=== PATIENT | female | born 1955 | race Caucasian/White ===

== ENCOUNTER 2019-02-24 11:03 | Inpatient (IN) | payer MEDICARE, MEDICAID ==
[~2019-02-24] VITALS: Ht 157.5 cm; Wt 64.7 kg
[2019-02-24] MEDS ORDERED: ONDANSETRON 4MG/2ML VIAL (J2405) As Ordered ONE (11:31)
[2019-02-24 11:41] LABS: BASO # 0.1 10^3/uL (0.0-0.2); BASO % 0.6 % (0.0-1.0); HEMATOCRIT 42.1 % (36.0-47.0); HEMOGLOBIN 14.3 g/dl (12.0-15.5); LYMPH # 1.8 10^3/uL (1.5-4.5); MEAN CORPUSCULAR HEMOGLOBIN 30.8 pg (27.0-33.0); MEAN CORPUSCULAR VOLUME 90.5 fl (80.0-96.0); MONO # 1.1 10^3/uL (0.0-0.8); NEUTROPHILS # 13.2 10^3/uL (1.8-7.7); NEUTROPHILS % 80.7 % (36.0-66.0); PLATELET COUNT, AUTOMATED 291 10^3/uL (150-450); RED BLOOD COUNT 4.65 10^6/uL (4.00-5.40); WHITE BLOOD COUNT 16.4 10^3/uL (4.0-10.0)
[2019-02-24] MEDS ORDERED: ONDANSETRON 4MG/2ML VIAL (J2405) IV ONE (11:45)
[2019-02-24] MEDS ORDERED: MORPHINE 4 MG/ML 1ML VIAL/SYRINGE (J2270) IV ONE (11:45)
[2019-02-24] MEDS ORDERED: NS 1,000 ML IV ONE (11:45)
[2019-02-24] MEDS ORDERED: ISOVUE-370 76% 100ML VIAL (Q9967) As Ordered ONE (12:03)
[2019-02-24 12:14] LABS: ALBUMIN 2.5 GM/DL (3.2-5.2); BILIRUBIN,DIRECT 0.2 MG/DL (0.0-0.2); BILIRUBIN,TOTAL 0.5 MG/DL (0.2-1.0); TOTAL PROTEIN 7.3 GM/DL (6.4-8.2)
[2019-02-24] MEDS ORDERED: ADVI100T PO (12:32)
[2019-02-24] MEDS ORDERED: ST J300C2 PO (12:32)
[2019-02-24] MEDS ORDERED: PIPERACILLIN/TAZOBACTAM SOD 3.375 GM in D5W MINI-BAG PLUS 50 ML IV ONE (13:15)
[2019-02-24] MEDS ORDERED: IBUP200T45 PO (13:32)
[2019-02-24] MEDS ORDERED: ALKATAB12 PO (13:32)
--- NOTE | 2019-02-24 15:18 | REP ---
CT of the abdomen pelvis with IV contrast : There are no comparison studies. There are multiple diverticula in the descending colon and sigmoid colon. There are two large pericolonic fluid collections at the sigmoid colon, one anteriorly containing fluid and gas bubbles measuring up to 5.6 cm and the other posteriorly inferior to the sigmoid measuring 4.6 cm. These are compatible with pericolonic abscesses. Additionally, there is extensive bilateral pneumo-retroperitoneum. The visualized lung maria are unremarkable. No pleural effusions. The hepatic parenchyma is heterogeneous. The hepatic margin has a nodular appearance. These findings suggest hepatocellular disease such as cirrhosis. There are no hepatic masses. No varices are identified. The gallbladder, pancreas and spleen are unremarkable except that the pancreas is outlined by pneumoretroperitoneum. The adrenals are unremarkable. The kidneys are unremarkable except for bilateral parapelvic cysts. The abdominal aorta is unremarkable. There is no bowel distension or obstruction. Pelvis: There are pericolonic abscesses adjacent to the sigmoid colon as described. There is no ascites. No pneumoperitoneum. The bladder, uterus and adnexa are unremarkable. Impression: Severe diverticulitis with two large pericolonic abscesses adjacent to the sigmoid colon as described. There is marked pneumoretroperitoneum. There are findings compatible with hepatic cirrhosis. No hepatic masses. Bilateral renal parapelvic cysts. Electronically Signed by Cali Goyal MD 02/24/2019 03:08 P
[2019-02-24 15:30] VITALS: BP 166/108
[2019-02-24] MEDS ORDERED: ONDANSETRON 4MG/2ML VIAL (J2405) IV PRN (15:30)
[2019-02-24] MEDS: MORPHINE 4 MG/ML 1ML VIAL/SYRINGE (J2270) IV PRN ×3 (15:44→20:40)
[2019-02-24] MEDS: NS 1,000 ML IV SCH (15:45)
[2019-02-24 16:15] LABS: BLOOD UREA NITROGEN 9 MG/DL (7-18); CALCIUM LEVEL 8.6 MG/DL (8.8-10.2); CARBON DIOXIDE LEVEL 24 MEQ/L (21-32); CHLORIDE LEVEL 103 MEQ/L (98-107); CREATININE FOR GFR 0.76 MG/DL (0.55-1.30); GLOMERULAR FILTRATION RATE > 60.0 (>45); GLUCOSE, FASTING 121 MG/DL (70-100); POTASSIUM SERUM 3.7 MEQ/L (3.5-5.1); SODIUM LEVEL 137 MEQ/L (136-145)
[2019-02-24] MEDS: ACETAMINOPHEN 325 MG TAB PO PRN ×2 (16:29→20:53)
--- NOTE | 2019-02-24 17:09 | HPEPDOC ---
General Date of Admission 02/24/19 @1347 Date of Service: Feb 24, 2019 (PCP: ASHLYN Hargrove) Attending Physician: MINA MOHR DO Chief Complaint The patient is a 63-year-old female admitted with a reason for visit of Abdominal Pain. Source: Patient, Family Exam Limitations: No limitations Timing/Duration: Getting worse Severity: Moderate Associated Symptoms: Fever, Chills, Loss of appetite, Malaise, Nausea, Vomiting, Other (weight loss 25-30# in 6 months) History of Present Illness 63 yo female with lower abdomen pain, N,V and diarrhea worse over past 1 week. Pateint states since september 2018, she has lost 25-30# because of nausea, unable to tolerate smell or taste of food. She states in November, she had first episode of diverticulitis and treated with 14 days of 2 antibiotics (presumed flagyl,levaquin). States abdomen pain never subsided and was intermittent on/off since then. Did not get colonoscopy. She states 02/16/19 pain worsened in intensity and severity and became sharp constant and associated with N,V,D. she has had fever and chills x4 days. patient and daughters (2) states worried and afraid that she will end up similar to her father who from complications of colon resection with colostomy and undiagnosed gallbladder infection. Home medications: st rae wort, ibuprofen Patient states she drinks 2-3 vodka/water daily and last EtOH use 02/22/19. States no history of DTs in past and has gone 1 month without drinking and no withdraw history Home Medications Scheduled PRN Aspirin/Sod Bicarb/Citric Acid (Angel[place] Es Tab Eff) 1 Each Tablet.eff, 1 EACH PO for HEARTBURN/INDIGESTION, (Reported) Ibuprofen (Ibu-200) 200 Mg Tablet, 200 MG PO Q6H PRN for PAIN, (Reported) Allergies Coded Allergies: No Known Allergies (Unverified , 02/24/19) Past Medical History Medical History none - patient states "healthy"; denies diabetes,HTN,thyroid or heart disease Family History Significant Family History: Noncontributory mother old age (97 yo); father complications of colostomy and undiagnosed ruptured gallbladder age 94 Social History * Smoker: non-smoker Alcohol: other (pateint drinks 2-3 vodka and water nightly) A-FIB/CHADSVASC A-FIB History Current/History of A-Fib/PAF?: No Review of Systems Constitutional: Reports: Chills, Fever, Malaise, Fatigue, Weight Loss Gastrointestinal: Reports: Nausea, Vomiting, Abdominal Pain, Diarrhea Other systems 10 comprehensive systems reviewed and negative except as above or in the HPI Physical Examination General Exam: Positive: Alert, Cooperative, Mild Distress Eye Exam: Positive: PERRLA, Conjunctiva & lids normal, EOMI ENT Exam: Positive: Atraumatic, Mucous membr. moist/pink, Pharynx Normal, Tong ue Midline, Other ENT (upper dentures; lower teeth intact) Neck Exam: Positive: Supple, +2 carotid pulse wo bruit Chest Exam: Positive: Clear to auscultation, Normal air movement; Negative: Rales, Rhonchi, Wheezing Heart Exam: Positive: Rate Normal, Regular Rhythm, Other (no rub, no murmur) Abdomen Exam: Positive: BS Hyperactive, Soft, Tenderness (diffuse but more localized in RUQ and LLQ), Mass (stool vs mass in LLQ), Other (guarding, mild rebound but no rigidity) Extremity Exam: Positive: Normal pulses; Negative: Clubbing, Cyanosis, Edema Skin Exam: Positive: Nl turgor and temperature Neuro Exam: Positive: Normal Speech, Strength at 5/5 X4 ext, Normal Tone, Sensation Intact, Cranial Nerves 3-12 NL Psych Exam: Positive: Mental status NL, Mood NL, Oriented x [address] SCAN ABDOMEN: There are two large pericolonic fluid collections at the sigmoid colon, one anteriorly containing fluid and gas bubbles measuring up to 5.6 cm and the other posteriorly inferior to the sigmoid measuring 4.6 cm. These are compatible with pericolonic abscesses. Additionally, there is extensive bilateral pneumo-retroperitoneum. The hepatic parenchyma is heterogeneous. The hepatic margin has a nodular appearance. These findings suggest hepatocellular disease such as cirrhosis. There are no hepatic masses. No varices are identified. The gallbladder, pancreas and spleen are unremarkable except that the pancreas is outlined by pneumoretroperitoneum. Impression: Severe diverticulitis with two large pericolonic abscesses adjacent to the sigmoid colon as described. There is marked pneumoretroperitoneum. There are findings compatible with hepatic cirrhosis. No hepatic masses. Bilateral renal parapelvic cysts. Vital Signs Vital Signs Date Time Temp Pulse Resp B/P (MAP) Pulse Ox O2 Delivery O2 Flow Rate FiO2 02/24/19 12:20 18 02/24/19 12:08 90 139/69 (92) 02/24/19 11:47 98.6 98 Room Air Laboratory Data Labs 24H Laboratory Tests 2 02/24/19 11:29: Immature Granulocyte % (Auto) 0.7, White Blood Count 16.4H, Red Blood Count 4.65, Hemoglobin 14.3, Hematocrit 42.1, Mean Corpuscular Volume 90.5, Mean Corpuscular Hemoglobin 30.8, Mean Corpuscular Hemoglobin Concent 34.0, Red Cell Distribution Width 13.0, Platelet Count 291, Neutrophils (%) (Auto) 80.7H, Lymphocytes (%) (Auto) 11.0L, Monocytes (%) (Auto) 7.0H, Eosinophils (%) (Auto) 0.0, Basophils (%) (Auto) 0.6, Neutrophils # (Auto) 13.2H, Lymphocytes # (Auto) 1.8, Monocytes # (Auto) 1.1H, Eosinophils # (Auto) 0.0, Basophils # (Auto) 0.1, Nucleated Red Blood Cells % (auto) 0.0, Aspartate Amino Transf (AST/SGOT) 17, Alanine Aminotransferase (ALT/SGPT) 11L, Alkaline Phosphatase 69, Total Bilirubin 0.5, Direct Bilirubin 0.2, Total Protein 7.3, Albumin 2.5L, Albumin/Globulin Ratio 0.52L, Amylase Level 16L, Lipase 42L 02/24/19 11:32: POC Glucose (Misc Panel) 136H, POC Sodium (Misc Panel) 138, POC Potassium (Misc Panel) 3.0L, POC Chloride (Misc Panel) 100, POC Total CO2 (Misc Panel) 20.0L, POC Blood Urea Nitrogen (Misc Panel 8, POC Ionized Calcium (Misc Panel) 4.3L, POC Creatinine (Misc Panel) 0.6, POC Hematocrit (Misc Panel) 41.0 CBC/BMP Laboratory Tests 02/24/19 11:29 Red Blood Count 4.65, Mean Corpuscular Volume 90.5, Mean Corpuscular Hemoglobin 30.8, Mean Corpuscular Hemoglobin Concent 34.0, Red Cell Distribution Width 13.0, Neutrophils (%) (Auto) 80.7 H, Lymphocytes (%) (Auto) 11.0 L, Monocytes (%) (Auto) 7.0 H, Eosinophils (%) (Auto) 0.0, Basophils (%) (Auto) 0.6, Neutrophils # (Auto) 13.2 H, Lymphocytes # (Auto) 1.8, Monocytes # (Auto) 1.1 H, Eosinophils # (Auto) 0.0, Basophils # (Auto) 0.1 Assessment/Plan 1) abdomen pain due to acute on chronic severe diverticulitis with 2 pericolonic abscess Surgery consulted thru ED (dr Hernandez) who recommended IR drain and will see patient blood cultures ordered zosyn IV, IVF, NPO except meds, morphine for pain control 2) extensive bilateral pneumo-retroperitoneum. seen on CT scan and associated with abscess. Check CXR, KUB 3) Probable hepatocellular disease (or cirrhosis) - normal liver function test - check US gallbladder and hepatitis (ABC) profile; family is requesting HIDA scan but will wait at this time until other medical issues improved. 4) History of EtOH use without dependence - watch for s/s of withdraw, although patient states she has gone long periods of time without EtOH use and no problems in past. CODE STATUS: FULL DVT prophylaxis: lovenox/SCD 5) weight loss- unintentional Plan / VTE VTE Prophylaxis Ordered?: Yes MINA MOHR DO Feb 24, 2019 13:47
--- NOTE | 2019-02-24 17:24 | REP ---
Acute abdominal series four views including PA and lateral chest and supine upright abdomen: PA and lateral chest: Comparison is the abdomen/pelvis CT earlier today. The lung maria are clear. Cardiac size is normal. The marisa and mediastinum are unremarkable. There is an age indeterminate fracture of the posterior arch of the right seventh rib. There is an unusual crescentic collection of air over the mid upper abdomen , likely the pneumoretroperitoneum identified on the abdomen and pelvis CT earlier today. There is no free subdiaphragmatic air. Impression: Unusual crescentic air collection over the midline of the upper abdomen, likely the pneumoretroperitoneum identified by CT earlier today. There is no free subdiaphragmatic air. Age indeterminate fracture of the right seventh rib. Abdomen, supine upright views: There are mildly dilated bowel loops in the abdomen on the right one of which contains an air-fluid level on the upright view. The bowel gas pattern is nonspecific. There are no calcifications. The bladder is opacified as a consequence of the IV contrast for the previous CT. There are unusual air collections in the mid and upper abdomen corresponding to the pneumoretroperitoneum on the comparison CT. Impression: Nonspecific bowel gas pattern. There are findings compatible with the pneumoretroperitoneum identified on the comparison CT Electronically Signed by Cali Goyal MD 02/24/2019 05:15 P
--- NOTE | 2019-02-24 17:25 | REP ---
Chest single lateral view: Please refer to the the acute abdominal series performed this same date for these results. Electronically Signed by Cali Goyal MD 02/24/2019 05:16 P
[2019-02-24 17:30] VITALS: BP 140/66
[2019-02-24 20:00] VITALS: BP 122/60
[2019-02-24] MEDS: PIPERACILLIN/TAZOBACTAM SOD 3.375 GM in D5W MINI-BAG PLUS 50 ML IV SCH (20:40)
[2019-02-25] VITALS (7 sets, daily range): BP systolic 111–131; BP diastolic 60–77
[2019-02-25] MEDS: MORPHINE 4 MG/ML 1ML VIAL/SYRINGE (J2270) IV PRN ×7 (01:08→22:07)
[2019-02-25] MEDS: NS 1,000 ML IV SCH ×2 (01:08→14:53)
[2019-02-25] MEDS: PIPERACILLIN/TAZOBACTAM SOD 3.375 GM in D5W MINI-BAG PLUS 50 ML IV SCH ×4 (02:52→20:35)
[2019-02-25 07:16] LABS: HEMOGLOBIN 12.8 g/dl (12.0-15.5); MEAN CORPUSCULAR HEMOGLOBIN 29.8 pg (27.0-33.0); MEAN CORPUSCULAR HGB CONC 32.8 g/dl (32.0-36.5); MEAN CORPUSCULAR VOLUME 90.9 fl (80.0-96.0); PLATELET COUNT, AUTOMATED 248 10^3/uL (150-450); RED BLOOD COUNT 4.29 10^6/uL (4.00-5.40); WHITE BLOOD COUNT 11.8 10^3/uL (4.0-10.0)
[2019-02-25 07:25] LABS: INR 1.35; PROTHROMBIN TIME 16.4 SECONDS (11.8-14.0)
[2019-02-25 07:43] LABS: ALT/SGPT 10 U/L (12-78); BILIRUBIN,TOTAL 0.5 MG/DL (0.2-1.0); BLOOD UREA NITROGEN 11 MG/DL (7-18); CALCIUM LEVEL 8.3 MG/DL (8.8-10.2); CARBON DIOXIDE LEVEL 25 MEQ/L (21-32); CHLORIDE LEVEL 108 MEQ/L (98-107); CREATININE FOR GFR 0.81 MG/DL (0.55-1.30); GLOMERULAR FILTRATION RATE > 60.0 (>45); GLUCOSE, FASTING 88 MG/DL (70-100); POTASSIUM SERUM 3.5 MEQ/L (3.5-5.1); SODIUM LEVEL 141 MEQ/L (136-145); TOTAL PROTEIN 6.8 GM/DL (6.4-8.2)
[2019-02-25] MEDS: ACETAMINOPHEN 325 MG TAB PO PRN ×2 (07:52→22:17)
--- NOTE | 2019-02-25 10:08 | REP ---
Clinical: Abdominal pain. Lower abdominal abscess related to diverticulitis. Technique: Real time naidu scale ultrasound examination using curved array transducer. Comparison: CT dated 02/24/2019. Findings: Liver and pancreas are normal in contour, size, echogenicity without focal hepatic or pancreatic lesion identified. The gallbladder is normal without gallstones, wall thickening, or pericholecystic fluid. No biliary ductal dilatation is appreciated and the common bile duct measures 2.4 mm diameter. Right kidney is normal in reniform shape without hydronephrosis and measures 11.5 x 5.7 x 5.8 cm. Limited evaluation of the lower abdomen/pelvis demonstrates a complex collection measuring approximately 9.5 x 7.8 x 4.5 cm consistent with known abscess related to diverticulitis and similar to CT findings. Impression: 1. Normal right upper quadrant ultrasound. 2. Complex fluid/abscess in the lower abdomen consistent with CT findings related to diverticulitis. Electronically Signed by Oleg Gee MD 02/25/2019 10:00 A
[2019-02-25] MEDS ORDERED: LIDOCAINE 1% MDV 20ML VIAL As Ordered ONE (10:39)
[2019-02-25 11:41] LABS: HEPATITIS A ANTIBODY IGM NEGATIVE (NEGATIVE); HEPATITIS B CORE ANTIBODY IGM NEGATIVE (NEGATIVE); HEPATITIS B SURFACE ANTIGEN NEGATIVE (NEGATIVE); HEPATITIS C VIRUS ABY INDEX 0.2 INDEX (<0.8)
--- NOTE | 2019-02-25 11:55 | IPNPDOC ---
Text Note Date of Service The patient was seen on 02/25/19. NOTE S: patient admitted with diverticulitis with abscess but no rectal bleeding. She states abdomen pain present and is hungry. pain intermittently controlled with morphine. no N no V today. daughter present. O: VS as below General: pleasant, NAD AAOx3 HRRR LCTA no W/R/R Abdomen soft diffusely tender, decreased but present bowel sounds, no palpable mass; pain worse in R/L lower quadrants, negative menezes. no rebound, no rigidity Ext no edema A/P: 1) abdomen pain due to acute on chronic severe diverticulitis with 2 pericolonic abscess Surgery consulted (dr Hernandez) thru the ED who will follow blood cultures ordered zosyn IV, IVF, NPO except meds, morphine for pain control Patient to have IR needle drain of abscess today 2) extensive bilateral pneumo-retroperitoneum. seen on CT scan and associated with abscess. 3) Probable hepatocellular disease (or cirrhosis) - normal liver function test - check US gallbladder and hepatitis (ABC) profile; family is requesting HIDA scan but will wait at this time until other medical issues improved. 4) History of EtOH use without dependence - watch for s/s of withdraw, although patient states she has gone long periods of time without EtOH use and no problems in past. VS,Fishbone, I+O VS, Fishbone, I+O Laboratory Tests 02/24/19 15:40 Calcium Level 8.6 L 02/25/19 06:56 Calcium Level 8.3 L, Red Blood Count 4.29, Mean Corpuscular Volume 90.9, Mean Corpuscular Hemoglobin 29.8, Mean Corpuscular Hemoglobin Concent 32.8, Red Cell Distribution Width 13.3, Aspartate Amino Transf (AST/SGOT) 11, Alanine Aminotransferase (ALT/SGPT) 10 L, Alkaline Phosphatase 70, Total Bilirubin 0.5, Total Protein 6.8, Albumin 2.0 L Vital Signs Date Time Temp Pulse Resp B/P (MAP) Pulse Ox O2 Delivery O2 Flow Rate FiO2 02/25/19 10:22 18 02/25/19 07:52 100.5 106 131/74 (93) 96 02/24/19 14:51 Room Air I&O- Last 24 Hours up to 6 AM 02/25/19 06:00 Intake Total 2360 ml Output Total 210 ml Balance 2150 ml MINA MOHR DO Feb 25, 2019 11:55
--- NOTE | 2019-02-25 16:04 | CR ---
DATE OF CONSULTATION: 02/24/2019 REASON FOR CONSULTATION: Perforated diverticulitis. HISTORY OF PRESENT ILLNESS: The patient is a 63-year-old female who presents with nausea, vomiting and diarrhea for the past week. She has also had some increase in abdominal pain. She came into the emergency room, had an elevated white count, as well as a CT scan that shows complicated diverticulitis with free air in the abdomen, as well as some pericolonic abscess. This morning her white count is improved. She says her abdominal pain feels better. She has no nausea, vomiting. No fevers overnight just in the emergency room. She has had one other episode of diverticulitis last November. She was treated with antibiotics for that and did not require hospitalization. She feels like she has never improved since then that she has had persistent abdominal pains on and off and has resulted in 25 30-pound weight loss, but she has not had any other therapy for it. She has never had a colonoscopy. There is a strong family history of colon cancer and complications from colon surgeries so she has been avoiding the whole issue altogether. PAST MEDICAL HISTORY: Negative. PAST SURGICAL HISTORY: Negative. ALLERGIES: None. HOME MEDICATIONS: - aspirin - ibuprofen FAMILY HISTORY: Noncontributory. SOCIAL HISTORY: Claims to drink two to three alcoholic beverages a day. Family claims likely more. Denies tobacco or drug abuse. REVIEW OF SYSTEMS: Pertinent positives and negatives as stated in the history of present illness. PHYSICAL EXAMINATION: General: Patient is awake and alert. Vitals: Temperature 100.5, pulse 106, respirations 20, blood pressure 131/74, pulse ox 96% on room air. HEENT: Pupils equal round react to light accommodation. HEART: S1, S2. Regular rate and rhythm. LUNGS: Clear to auscultation bilaterally. Abdomen: Soft, diffuse mild tenderness. No rebounding or guarding. Extremities: No clubbing, cyanosis or edema. LABORATORY DATA: White count 11.8, down from 16 on admission, hemoglobin 12.8, platelets 248, sodium 141, potassium 3.5, creatinine 0.81. IMAGING STUDIES: CT abdomen and pelvis shows severe diverticulitis with two large pericolonic abscesses adjacent to the sigmoid colon, pneumoretroperitoneum finding is also compatible with hepatic cirrhosis. No hepatic masses. Bilateral renal parapelvic cysts. ASSESSMENT/PLAN: The patient 63-year-old female with alcoholism, likely alcoholic cirrhosis, as well as complicated diverticulitis. Currently, she has a non peritoneal abdomen. She has borderline fevers and her white count is improving; however, she is still at high risk for requiring an emergent surgery during this hospitalization. At this point, I have spoken with radiology, they are going to attempt placement of a drain next to one of the pericolonic abscesses in the sigmoid colon. They will be placing that this afternoon. As long as she tolerates that well and continues to improve with the IV antibiotics, then we may be able to avoid urgent surgery with colostomy during this stay. However, on discharge, would highly recommend that she sees me for colonoscopy and likely attempt to talk her into a colon resection in about 1-1/2 months once this all resolves. She is not very comfortable discussing any of that at this point, but we will readdress it again tomorrow.
--- NOTE | 2019-02-25 16:51 | REP ---
CT-guided abdominal abscess drain The procedure was performed under the direct supervision of Dr. Padron. The patient has a history of to large pericolonic fluid collections at the sigmoid colon one anteriorly containing fluid and gas bubbles measuring 5.6 cm and the other posteriorly and inferiorly to the sigmoid measuring 4.6 cm. The more posterior and inferior collection is amenable for drainage. The risks and benefits of the procedure were explained to the patient and informed consent was obtained. The abdominal abscess was localized using CT guidance. The skin was prepped and draped in a sterile fashion. 1% lidocaine was used as a local anesthetic. Using CT guidance and Seldinger technique a 810 [place] Skater APDL catheter was inserted. 30 ml of base colored fluid was withdrawn and sent to lab for analysis. The abscess cavity was flushed with four 10 ml aliquots of sterile saline. The catheter was affixed to the skin and a sterile dressing was applied. The catheter was connected to a gravity drainage bag. The patient tolerated the procedure well and there were no immediate complications. Reviewed by KEVIN Anderson 02/25/2019 04:29 P Electronically Signed by Van Padron MD 02/25/2019 04:42 P
[2019-02-26] VITALS: BP 140/69
[2019-02-26] MEDS: PIPERACILLIN/TAZOBACTAM SOD 3.375 GM in D5W MINI-BAG PLUS 50 ML IV SCH ×4 (02:25→19:49)
[2019-02-26] MEDS: MORPHINE 4 MG/ML 1ML VIAL/SYRINGE (J2270) IV PRN ×6 (02:36→21:46)
[2019-02-26] MEDS: ACETAMINOPHEN 325 MG TAB PO PRN ×4 (02:37→20:03)
[2019-02-26] MEDS: NS 1,000 ML IV SCH ×2 (03:00→07:30)
[2019-02-26 04:00] VITALS: BP 132/84
[2019-02-26 06:56] LABS: HEMATOCRIT 41.4 % (36.0-47.0); HEMOGLOBIN 13.9 g/dl (12.0-15.5); MEAN CORPUSCULAR HEMOGLOBIN 31.4 pg (27.0-33.0); MEAN CORPUSCULAR HGB CONC 33.6 g/dl (32.0-36.5); MEAN CORPUSCULAR VOLUME 93.5 fl (80.0-96.0); PLATELET COUNT, AUTOMATED 281 10^3/uL (150-450); RED BLOOD COUNT 4.43 10^6/uL (4.00-5.40); WHITE BLOOD COUNT 13.3 10^3/uL (4.0-10.0)
[2019-02-26 07:27] LABS: LYMPHOCYTES 10 % (16-52); MONOCYTES 2 % (0-8); NEUTROPHILS 88 % (35-75)
[2019-02-26 07:28] LABS: PLATELET ESTIMATE NORMAL (NORMAL)
[2019-02-26 07:42] LABS: ALBUMIN 1.9 GM/DL (3.2-5.2); ALT/SGPT 16 U/L (12-78); BILIRUBIN,TOTAL 0.4 MG/DL (0.2-1.0); BLOOD UREA NITROGEN 18 MG/DL (7-18); CALCIUM LEVEL 8.7 MG/DL (8.8-10.2); CARBON DIOXIDE LEVEL 24 MEQ/L (21-32); CHLORIDE LEVEL 109 MEQ/L (98-107); CREATININE FOR GFR 0.72 MG/DL (0.55-1.30); GLOMERULAR FILTRATION RATE > 60.0 (>45); GLUCOSE, FASTING 95 MG/DL (70-100); POTASSIUM SERUM 3.7 MEQ/L (3.5-5.1); SODIUM LEVEL 142 MEQ/L (136-145); TOTAL PROTEIN 6.2 GM/DL (6.4-8.2)
[2019-02-26 08:00] VITALS: BP 118/72
--- NOTE | 2019-02-26 08:48 | IPNPDOC ---
Text Note Date of Service The patient was seen on 02/26/19. NOTE No acute events overnight. She has not had a fever since noon yesterday. The abd pain is improving, but she still has pains on the left side. No nausea or emesis. VSSAF Drain - 50 purulent NAD abd - soft, distended, tender to palpation diffuse, no rebound or guarding labs - below A) 63y/o female with complicated diverticulitis with free air and an abscess s/p IR drainage no prior colonoscopy P) clears IVF abx monitor output she will need a colonoscopy as an outpatient in about 6 weeks. After that we will discuss possible elective colon resection. Steve Hernandez DO VS,Jony, I+O VS, Jony, I+O Laboratory Tests 02/26/19 06:34 Red Blood Count 4.43, Mean Corpuscular Volume 93.5, Mean Corpuscular Hemoglobin 31.4, Mean Corpuscular Hemoglobin Concent 33.6, Red Cell Distribution Width 13.5, Calcium Level 8.7 L, Aspartate Amino Transf (AST/SGOT) 25, Alanine Aminotransferase (ALT/SGPT) 16, Alkaline Phosphatase 84, Total Bilirubin 0.4, Total Protein 6.2 L, Albumin 1.9 L Vital Signs Date Time Temp Pulse Resp B/P (MAP) Pulse Ox O2 Delivery O2 Flow Rate FiO2 02/26/19 07:28 18 02/26/19 04:00 98.2 104 132/84 (100) 94 02/24/19 14:51 Room Air I&O- Last 24 Hours up to 6 AM 02/26/19 06:00 Intake Total 1200 ml Output Total 620 ml Balance 580 ml MARCOS HERNANDEZ DO Feb 26, 2019 08:48
--- NOTE | 2019-02-26 11:49 | IPNPDOC ---
Date Seen The patient was seen on 02/26/19. Progress Note Subjective: pt c/o 5/10 pain in the left lower quadrant s/p drainage catheter placement 02/25/19 for diverticulitis with 2 large sigmoid abscesses. denies any fever, chills, nausea, vomiting. tolerating oral diet, but "jello is too sweet.I didn't eat much." c/o abdominal distension, no bowel movement. ambulated around the floor yesterday. Surgeon discussed colonoscopy in 4-5 weeks after acute e pisode subsides. Objective: physical examination: Vital signs: pls see below General: pleasant, NAD AAOx3 anicteric no jaundice. HEENT: moist mucus membranes Heart: S1S2 RRR Lungs: CTA no W/R/R Abdomen :soft distended LLQ tender some bloody discharge and minimal purulence in drain. EXT: no edema laboratory data,imaging studies, microbiology: pls see below CT abd/pelvis: Severe diverticulitis with two large pericolonic abscesses adjacent to the sigmoid colon as described. There is marked pneumoretroperitoneum. There are findings compatible with hepatic cirrhosis. No hepatic masses. Bilateral renal parapelvic cysts. A/P:63 yo female with lower abdomen pain, N,V and diarrhea worse over past 1 week. Pateint states since september 2018, she has lost 25-30# because of nausea, unable to tolerate smell or taste of food. She states in November, she had first episode of diverticulitis and treated with 14 days of 2 antibiotics (presumed flagyl,levaquin). States abdomen pain never subsided and was intermittent on/off since then. Did not get colonoscopy. She states 02/16/19 pain worsened in intensity and severity and became sharp constant and associated with N,V,D. she has had fever and chills x4 days. patient and daughters (2) states worried and afraid that she will end up similar to her father who from complications of colon resection with colostomy and undiagnosed gallbladder infection. 1) severe diverticulitis with 2 pericolonic sigmoid abscess Surgery consulted (dr Hernandez) thru the ED who will follow blood cultures ordered zosyn IV, IVF, tolerating po diet except meds, morphine for pain control s/p IR Ct guided drainage placement 02/25/19 2) extensive bilateral pneumo-retroperitoneum. seen on CT scan and associated with abscess. 3) Probable hepatocellular disease (or cirrhosis) - normal liver function test - reviewedUS gallbladder and hepatitis (ABC) profile; 4) History of EtOH use without dependence - watch for s/s of withdraw, although patient states she has gone long periods of time without EtOH use and no problems in past. VS, I&O, 24H, Fishbone Vital Signs/I&O Vital Signs Date Time Temp Pulse Resp B/P (MAP) Pulse Ox O2 Delivery O2 Flow Rate FiO2 02/26/19 11:34 20 02/26/19 08:00 98.4 114 118/72 (87) 95 02/24/19 14:51 Room Air I&O- Last 24 Hours up to 6 AM 02/26/19 06:00 Intake Total 1200 ml Output Total 620 ml Balance 580 ml Laboratory Data 24H LABS Laboratory Tests 2 02/26/19 06:34: Nucleated Red Blood Cells % (auto) 0.0, Neutrophils 88H, Lymphocytes (Manual) 10L, Monocytes (Manual) 2, Platelet Estimate NORMAL, Red Blood Cell Morphology NORMAL, Anion Gap 9, Glomerular Filtration Rate > 60.0, Blood Urea Nitrogen 18#, Creatinine 0.72, Sodium Level 142, Potassium Level 3.7, Chloride Level 109H, Carbon Dioxide Level 24, Calcium Level 8.7L, Aspartate Amino Transf (AST/SGOT) 25, Alanine Aminotransferase (ALT/SGPT) 16, Alkaline Phosphatase 84, Total Bilirubin 0.4, Total Protein 6.2L, Albumin 1.9L, Albumin/Globulin Ratio 0.44L CBC/BMP Laboratory Tests 02/26/19 06:34 Red Blood Count 4.43, Mean Corpuscular Volume 93.5, Mean Corpuscular Hemoglobin 31.4, Mean Corpuscular Hemoglobin Concent 33.6, Red Cell Distribution Width 1 3.5, Calcium Level 8.7 L, Aspartate Amino Transf (AST/SGOT) 25, Alanine Aminotransferase (ALT/SGPT) 16, Alkaline Phosphatase 84, Total Bilirubin 0.4, Total Protein 6.2 L, Albumin 1.9 L Microbiology Microbiology 02/24/19 Blood Culture - Preliminary, Resulted No growth after 24 hours . All specim... 02/25/19 Anaerobic Culture, Received Pending 02/25/19 Gram Stain - Final, Resulted 02/25/19 Abscess Culture, Resulted Pending NANCY BARBA MD Feb 26, 2019 11:45
[2019-02-26 12:00] VITALS: BP 128/92
[2019-02-26 16:00] VITALS: BP 126/86
[2019-02-26 19:58] VITALS: BP 124/64
[2019-02-27] VITALS (7 sets, daily range): BP systolic 130–178; BP diastolic 75–98
[2019-02-27] MEDS: MORPHINE 4 MG/ML 1ML VIAL/SYRINGE (J2270) IV PRN ×4 (01:07→11:11)
[2019-02-27] MEDS: PIPERACILLIN/TAZOBACTAM SOD 3.375 GM in D5W MINI-BAG PLUS 50 ML IV SCH ×4 (01:07→21:08)
[2019-02-27] MEDS: ACETAMINOPHEN 325 MG TAB PO PRN (05:29)
--- NOTE | 2019-02-27 07:56 | IPNPDOC ---
Date Seen The patient was seen on 02/27/19. Progress Note Subjective: pt remains frustrated about still being in the hospital with slow recovery. She looks away at the window when her case is discussed, and sighs when encouraged to ambulate. "I'm not any better. My belly still hurts,and the pain meds are only good for about 2hours." Her daughter at the bedside says, "the jello is no good. She doesn't eat that. The broth is too salty even if it's low salt on the menu." Per RN, 15 ml output via drain all day yesterday, and none overnight. pt still c/o 8/10 pain in the left lower quadrant s/p drainage catheter placement 02/25/19 for diverticulitis with 2 large sigmoid abscesses. denies any fever, chills, nausea, vomiting. tolerating oral diet, but "jello is too sweet.I didn't eat much." c/o abdominal distension which is unchanged from yesterday , but passing flatus. ambulated around the floor yesterday with some difficulty. Surgeon discussed colonoscopy in 4-5 weeks after acute episode subsides. Per Surgery this morning, since the abdomen is more distended and increased air, re-imaging to rule out perforation is recommended. Objective: physical examination: Vital signs: pls see below General: pleasant, NAD AAOx3 anicteric no jaundice. HEENT: moist mucus membranes Heart: S1S2 RRR Lungs: CTA no W/R/R Abdomen :soft more distended increased LLQ tenderness some bloody discharge and minimal purulence in drain. EXT: no edema laboratory data,imaging studies, microbiology: pls see below CT abd/pelvis: Severe diverticulitis with two large pericolonic abscesses adjacent to the sigmoid colon as described. There is marked pneumoretroperitoneum. There are findings compatible with hepatic cirrhosis. No hepatic masses. Bilateral renal parapelvic cysts. A/P:63 yo female with lower abdomen pain, N,V and diarrhea worse over past 1 week. Pateint states since september 2018, she has lost 25-30# because of nausea, unable to tolerate smell or taste of food. She states in November, she had first episode of diverticulitis and treated with 14 days of 2 antibiotics (presumed flagyl,levaquin). States abdomen pain never subsided and was intermittent on/off since then. Did not get colonoscopy. She states 02/16/19 pain worsened in intensity and severity and became sharp constant and associated with N,V,D. she has had fever and chills x4 days. patient and daughters (2) states worried and afraid that she will end up similar to her father who from complications of colon resection with colostomy and undiagnosed gallbladder infection. 1) severe diverticulitis with 2 pericolonic sigmoid abscess Surgery consulted (dr Hernandez) thru the ED who will follow blood cultures ordered zosyn IV, IVF, tolerating po diet except meds, morphine for pain control s/p IR Ct guided drainage placement 02/25/19 increased pain 02/27/19 with more abdominal distention-repeat CT abd to rule out perforation 2) extensive bilateral pneumo-retroperitoneum. seen on CT scan and associated with abscess. 3) Probable hepatocellular disease (or cirrhosis) - normal liver function test - reviewedUS gallbladder and hepatitis (ABC) profile; 4) History of EtOH use without dependence - watch for s/s of withdraw, although patient states she has gone long periods of time without EtOH use and no problems in past. VS, I&O, 24H, Fishbone Vital Signs/I&O Vital Signs Date Time Temp Pulse Resp B/P (MAP) Pulse Ox O2 Delivery O2 Flow Rate FiO2 02/27/19 05:16 22 02/27/19 05:00 100.3 115 178/84 (115) 94 02/24/19 14:51 Room Air I&O- Last 24 Hours up to 6 AM 02/27/19 06:00 Intake Total 1770 ml Output Total 740 ml Balance 1030 ml Laboratory Data Microbiology Microbiology 02/24/19 Blood Culture - Preliminary, Resulted No Growth after 48 hours. All Specime... 02/25/19 Anaerobic Culture, Received Pending 02/25/19 Gram Stain - Final, Resulted 02/25/19 Abscess Culture, Resulted Pending NANCY BARBA MD Feb 27, 2019 07:56
[2019-02-27] MEDS ORDERED: MORPHINE 4 MG/ML 1ML VIAL/SYRINGE (J2270) IV ONE (08:45)
[2019-02-27 09:07] LABS: HEMOGLOBIN 13.9 g/dl (12.0-15.5); MEAN CORPUSCULAR HEMOGLOBIN 30.3 pg (27.0-33.0); MEAN CORPUSCULAR HGB CONC 33.9 g/dl (32.0-36.5); MEAN CORPUSCULAR VOLUME 89.5 fl (80.0-96.0); PLATELET COUNT, AUTOMATED 313 10^3/uL (150-450); RED BLOOD COUNT 4.58 10^6/uL (4.00-5.40)
[2019-02-27] MEDS: GASTROGRAFIN SOLUTION 30ML PO SCH ×2 (09:22→09:23)
[2019-02-27] MEDS ORDERED: ISOVUE-370 76% 100ML VIAL (Q9967) As Ordered ONE (10:45)
--- NOTE | 2019-02-27 11:27 | REP ---
CT of the abdomen pelvis with IV and bowel contrast: Comparison is 02/24/2019. On the comparison study the patient had a large pericolonic abscess adjacent to the sigmoid colon. The patient underwent percutaneous CT guided abscess drainage procedure on 02/25/2019. On the study today the percutaneous drainage catheter is identified entering from the anterior pelvic wall laterally on the left. The distal pigtail of the drainage catheters posterior to the sigmoid colon. The previous para sigmoid abscesses have significantly decreased in size. There is no free fluid in the abdomen or pelvis. Pneumoretroperitoneum is again identified, unchanged. Additionally, there is a pneumoperitoneum today anterior to the liver and transverse colon. The possibility of diffuse hepato cellular disease is again raised. Parapelvic cysts are again suspected in the kidneys bilaterally. The gallbladder is distended measuring up to 5.3 cm transverse diameter. On the prior study. The gallbladder measured at 3.9 cm transversely. However, there is no cholelithiasis, gallbladder wall thickening or pericholecystic fluid. Impression: The pericolonic abscesses adjacent to the sigmoid colon has significantly decreased in size after placement of percutaneous drainage catheter. Pneumoretroperitoneum and pneumoperitoneum are again identified. The gallbladder is distended as described. There are findings compatible with diffuse hepatocellular disease, requiring clinical confirmation. Bilateral parapelvic cysts are again suspected. Electronically Signed by Cali Goyal MD 02/27/2019 11:19 A
--- NOTE | 2019-02-27 12:48 | IPNPDOC ---
Text Note Date of Service The patient was seen on 02/27/19. NOTE No acute events overnight. She is still having low grade fevers, and the abd pains are worse today. I ordered a stat CT which shows resolution of the abscesses, but she has increased free air in the abdomen. VSSAF currently Drain - 15ml purulent NAD abd - soft, distended, tender to palpation diffuse, positive rebound and guarding labs - below A) 63y/o female with complicated diverticulitis with free air and an abscess s/p IR drainage no prior colonoscopy P) NPO IVF abx monitor output due to increase in the pain and the free air in the abdomen I am concerned that she has failed medical management. Recommendation is to proceed with lap sigmoidectomy and colostomy creation. Risks were discussed with her and consent is signed. We will plan on urgent surgery this afternoon. Steve Hernandez DO VS,Jony, I+O VS, Jony, I+O Laboratory Tests 02/27/19 08:44 Red Blood Count 4.58, Mean Corpuscular Volume 89.5, Mean Corpuscular Hemoglobin 30.3, Mean Corpuscular Hemoglobin Concent 33.9, Red Cell Distribution Width 13.7 Vital Signs Date Time Temp Pulse Resp B/P (MAP) Pulse Ox O2 Delivery O2 Flow Rate FiO2 02/27/19 11:11 18 02/27/19 08:00 99.0 110 160/92 (114) 95 02/24/19 14:51 Room Air I&O- Last 24 Hours up to 6 AM 02/27/19 05:59 Intake Total 1770 ml Output Total 740 ml Balance 1030 ml MARCOS HERNANDEZ DO Feb 27, 2019 12:48
[2019-02-27] MEDS ORDERED: BUPIVACAINE/EPIN 0.25% 30 ML VIAL As Ordered ONE (13:27)
[2019-02-27] MEDS ORDERED: dexameTHASONE 4 MG/ML 1ML VIAL (J1100) As Ordered ONE (14:06)
[2019-02-27] MEDS ORDERED: ROCURONIUM BROMIDE 50 MG/5 ML VIAL As Ordered ONE ×2 (14:06→15:21)
[2019-02-27] MEDS ORDERED: LIDOCAINE 2% INJ 100 MG/5 ML SDV (FOR ANES.) As Ordered ONE (14:06)
[2019-02-27] MEDS ORDERED: fentaNYL 250 MCG/5 ML INJECTION (J3010) As Ordered ONE (14:06)
[2019-02-27] MEDS ORDERED: PROPOFOL 200 MG/20 ML VIAL As Ordered ONE ×2 (14:06→14:33)
[2019-02-27] MEDS ORDERED: ONDANSETRON 4MG/2ML VIAL (J2405) As Ordered ONE ×2 (14:06→17:27)
[2019-02-27] MEDS ORDERED: SUGAMMADEX SODIUM 500 MG/5 ML VIAL (BRIDION) As Ordered ONE (14:06)
[2019-02-27] MEDS ORDERED: MIDAZOLAM INJ 2 MG/2 ML VIAL (J2250) As Ordered ONE (14:06)
[2019-02-27] MEDS ORDERED: METOCLOPRAMIDE INJ 10MG/2ML VIAL (J2765) As Ordered ONE (14:06)
[2019-02-27] MEDS ORDERED: KETAMINE HCL 200 MG/20 ML VIAL As Ordered ONE (14:37)
[2019-02-27] MEDS ORDERED: ERTAPENEM 1 GM INJ (INVanz) (J1335) As Ordered ONE (15:45)
[2019-02-27] MEDS ORDERED: HYDROmorphone HCL 2 MG/ML 1ML VIAL (J1170) As Ordered ONE (15:45)
[2019-02-27] MEDS ORDERED: KCL 20MEQ IN D5/0.45NS 1000ML 1,000 ML IV SCH (17:22)
[2019-02-27] MEDS ORDERED: fentaNYL 100 MCG/2 ML INJECTION (J3010) IV PRN (17:45)
[2019-02-27] MEDS ORDERED: LR 1,000 ML IV SCH (17:45)
[2019-02-27] MEDS ORDERED: ONDANSETRON 4MG/2ML VIAL (J2405) IV PRN (17:45)
[2019-02-27] MEDS: HYDROMORPHONE HCL 0.5 MG/ 0.5 ML SYRINGE (J1170 PER 1) IV PRN ×5 (17:50→18:10)
[2019-02-27] MEDS ORDERED: HYDROMORPHONE HCL 0.5 MG/ 0.5 ML SYRINGE (J1170 PER 1) As Ordered ONE (17:52)
[2019-02-27] MEDS: LR 1,000 ML IV SCH (18:00)
[2019-02-27] MEDS ORDERED: LORazepam 2 MG/ML VIAL (J2060) IV PRN (19:15)
[2019-02-27] MEDS ORDERED: OXAZEPAM 10 MG CAP PO PRN (19:30)
[2019-02-27] MEDS: FOLIC ACID 1 MG in NS 50 ML IV SCH (21:09)
[2019-02-27] MEDS: KETOROLAC 30 MG/ML VIAL (J1885) IV PRN (21:24)
[2019-02-27] MEDS: THIAMINE HCL 200 MG/2 ML VIAL (J3411) IV SCH (22:35)
[2019-02-27] MEDS: SENOKOT S TAB PO SCH (22:41)
[2019-02-28] VITALS (17 sets, daily range): BP systolic 130–171; BP diastolic 64–80; O2SAT 94–97
[2019-02-28] MEDS: PIPERACILLIN/TAZOBACTAM SOD 3.375 GM in D5W MINI-BAG PLUS 50 ML IV SCH ×4 (02:06→19:48)
[2019-02-28] MEDS: MORPHINE 4 MG/ML 1ML VIAL/SYRINGE (J2270) IV PRN ×3 (02:13→18:28)
[2019-02-28] MEDS: LR 1,000 ML IV SCH ×3 (03:08→17:13)
[2019-02-28 05:38] LABS: HEMATOCRIT 37.6 % (36.0-47.0); HEMOGLOBIN 12.7 g/dl (12.0-15.5); MEAN CORPUSCULAR HEMOGLOBIN 29.1 pg (27.0-33.0); MEAN CORPUSCULAR HGB CONC 33.8 g/dl (32.0-36.5); PLATELET COUNT, AUTOMATED 309 10^3/uL (150-450); RED BLOOD COUNT 4.37 10^6/uL (4.00-5.40); WHITE BLOOD COUNT 9.8 10^3/uL (4.0-10.0)
[2019-02-28 06:07] LABS: BLOOD UREA NITROGEN 12 MG/DL (7-18); CARBON DIOXIDE LEVEL 26 MEQ/L (21-32); CHLORIDE LEVEL 104 MEQ/L (98-107); CREATININE FOR GFR 0.46 MG/DL (0.55-1.30); GLOMERULAR FILTRATION RATE > 60.0 (>45); GLUCOSE, FASTING 152 MG/DL (70-100); POTASSIUM SERUM 3.8 MEQ/L (3.5-5.1); SODIUM LEVEL 138 MEQ/L (136-145)
[2019-02-28] MEDS: KETOROLAC 30 MG/ML VIAL (J1885) IV PRN ×3 (06:32→21:00)
--- NOTE | 2019-02-28 06:33 | IPNPDOC ---
Date Seen The patient was seen on 02/28/19. Progress Note Subjective: On 02/27/19 pt was found to have increased abd pain and distension, repeat CT abd/pelvis: free air, s/p ex lap, abd washout, and left colostomy. Overnight, pt remained afebrile without chills. per 2 daughters at the bedside pt had yellow sputum production and cough. pt c/o back pain "from lying in bed " and abd pain 5/10 pain scale despite meds. no flatus. colostomy remains empty. bloody drainage noted. No c/o sob, chest pain, pressure, tightness. 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 Objective: physical examination: Vital signs: pls see below General: pleasant, NAD AAOx3 anicteric no jaundice. HEENT: moist mucus membranes Heart: S1S2 RRR Lungs: diminished, CTA no W/R/R Abdomen :soft left colostomy which was empty and flat with no flatus, bloody drain. EXT: no edema, venodyne boots laboratory data,imaging studies, microbiology: pls see below CT abd/pelvis: Severe diverticulitis with two large pericolonic abscesses adjacent to the sigmoid colon as described. There is marked pneumoretroperitoneum. There are findings compatible with hepatic cirrhosis. No hepatic masses. Bilateral renal parapelvic cysts. A/P:63 yo female with lower abdomen pain, N,V and diarrhea worse over past 1 week. Pateint states since september 2018, she has lost 25-30# because of nausea, unable to tolerate smell or taste of food. She states in November, she had first episode of diverticulitis and treated with 14 days of 2 antibiotics (presumed flagyl,levaquin). States abdomen pain never subsided and was intermittent on/off since then. Did not get colonoscopy. She states 02/16/19 pain worsened in intensity and severity and became sharp constant and associated with N,V,D. she has had fever and chills x4 days. patient and daughters (2) states worried and afraid that she will end up similar to her father who from complications of colon resection with colostomy and undiagnosed gallbladder infection. 1) Perforated diverticular abscesses with necrotic bowel Surgery consulted (dr Hernandez) blood cultures noted s/p zosyn IV which was discontinued on 02/27/19 IVF, s/p IR Ct guided drainage placement 02/25/19 02/27/19 s/p ex lap, abd washout, and left colostomy defer to surgery if entereg and tpn needed. 2) extensive bilateral pneumo-retroperitoneum. seen on CT scan and associated with abscess. 3) Probable hepatocellular disease (or cirrhosis) - normal liver function test - reviewedUS gallbladder and hepatitis (ABC) profile; 4) History of EtOH use without dependence - watch for s/s of withdraw, although patient states she has gone long periods of time without EtOH use and no problems in past. on [facility] protocol. VS, I&O, 24H, Fishbone Vital Signs/I&O Vital Signs Date Time Temp Pulse Resp B/P (MAP) Pulse Ox O2 Delivery O2 Flow Rate FiO2 02/28/19 04:00 97.7 100 18 147/78 (101) 97 2.0 02/24/19 14:51 Room Air I&O- Last 24 Hours up to 6 AM 02/28/19 06:00 Intake Total 5425 ml Output Total 1025 ml Balance 4400 ml Laboratory Data 24H LABS Laboratory Tests 2 02/27/19 08:44: Nucleated Red Blood Cells % (auto) 0.0 02/28/19 05:19: Nucleated Red Blood Cells % (auto) 0.0, Anion Gap 8, Glomerular Filtration Rate > 60.0, Blood Urea Nitrogen 12, Creatinine 0.46L, Sodium Level 138, Potassium Level 3.8, Chloride Level 104, Carbon Dioxide Level 26, Calcium Level 8.0L CBC/BMP Laboratory Tests 02/27/19 08:44 Red Blood Count 4.58, Mean Corpuscular Volume 89.5, Mean Corpuscular Hemoglobin 30.3, Mean Corpuscular Hemoglobin Concent 33.9, Red Cell Distribution Width 13.7 02/28/19 05:19 Red Blood Count 4.37, Mean Corpuscular Volume 86.0, Mean Corpuscular Hemoglobin 29.1, Mean Corpuscular Hemoglobin Concent 33.8, Red Cell Distribution Width 13.5, Calcium Level 8.0 L Microbiology Microbiology 02/24/19 Blood Culture - Preliminary, Resulted No Growth after 72 hours. All specime... 02/25/19 Anaerobic Culture, Received Pending 02/25/19 Gram Stain - Final, Resulted 02/25/19 Abscess Culture, Resulted Pending NANCY BARBA MD Feb 28, 2019 06:33
[2019-02-28] MEDS ORDERED: ANEXSIA, NORCO 7.5MG/325MG TABLET(HYDROCODONE/APAP) PO ONE (06:45)
--- NOTE | 2019-02-28 07:22 | REP ---
Clinical: Status post left hemicolectomy. Technique: Two supine views of the abdomen and pelvis. Findings: Extensive postsurgical changes are appreciated including surgical skin pradeep and scattered drains. Bowel gas pattern is relatively nonspecific. Neither free air or free fluid can be excluded. The skeletal structures are intact. Impression: Bowel gas pattern is nonspecific. Small amount of free air and free fluid cannot be excluded and if present may be postsurgical in nature. Electronically Signed by Oleg Gee MD 02/28/2019 07:14 A
--- NOTE | 2019-02-28 07:30 | REP ---
Portable chest, 07:05 a.m., single AP view with the patient upright: Comparison is 02/24/2019. There is subcutaneous emphysema in the soft tissues of the neck bilaterally as an interval change. I also suspect a pneumomediastinum, Upon review there is a pneumomediastinum on the abdomen CT dated 02/27/2019. The patient has known the pneumoretroperitoneum identified on recent abdomen CT studies. There is a small collection of air beneath the right hemidiaphragm compatible with pneumoperitoneum. Pneumoperitoneum was identified on the recent abdomen CTs. I suspect small bilateral pleural effusions. Lung maria otherwise clear. There is a nasogastric tube terminating satisfactorily in the abdominal left upper quadrant. Cardiac size is normal. Impression: Pneumomediastinum and subcutaneous emphysema in the soft tissues of the neck. Probable small bilateral pleural effusions. Small pneumoperitoneum under the right hemidiaphragm. The known pneumoretroperitoneum on recent abdomen CT studies. Electronically Signed by Cali Goyal MD 02/28/2019 07:22 A
--- NOTE | 2019-02-28 07:44 | RO ---
DATE OF PROCEDURE: 02/27/2019 PREOPERATIVE DIAGNOSIS: Perforated sigmoid diverticulitis. POSTOPERATIVE DIAGNOSIS: Perforated sigmoid diverticulitis with sigmoid stricture, ischemic descending colon and perforated descending colon. PROCEDURE: Exploratory laparotomy with abdominal washout, extended left hemicolectomy with takedown of the splenic flexure and transverse colon colostomy. SURGEON: Dr. Cali Hernandez [employer] SUPERVISOR: Dr. Eli who assisted with mobilization, retraction and takedown of the entire left colon, as well as maturing the colostomy. ANESTHESIA: General. ESTIMATED BLOOD LOSS: 200. COMPLICATIONS: None. INDICATIONS FOR PROCEDURE: The patient is a 63-year-old female with recent diagnosis of complicated diverticulitis who was admitted to emergency room over the weekend. She had a drain placed on Monday and felt improvement initially; however, she had progressive increasing pain and abdominal distention over the last [address] scan this morning shows significant increase in the amount of free air in the abdomen. Therefore, recommendation was to take her to the operating room for diagnostic laparoscopy and sigmoid resection with colostomy. Risks and benefits of the procedure not limited to, but including bleeding, infection, hernia formation, damage to surrounding structures, need for further surgery were discussed in detail with the patient and informed consent was obtained and the procedure was planned. DESCRIPTION OF PROCEDURE: The patient brought back to operating room seven after sufficient sedation, NG and Pedraza catheter were then placed. Next, a time out was done to confirm proper patient and proper procedure. Following that, a 5 mm incision made in the left lower quadrant, Veress needle inserted and the abdomen was insufflated to 15 mmHg. Next, a 5 mm OptiVu port was used to gain access to the abdomen. Once the abdomen was entered, there was significant air in the omentum and the retroperitoneum. I was able to place another 5 mm port on the left upper quadrant. Using the graspers, I attempted to mobilize the omentum and the small bowel out of the pelvis. However, it was very stuck in there. Two more 5 mm ports were placed, one infraumbilically in the midline and one in the right lower quadrant. I still was unable to make any progress in being able to mobilize the omentum. Therefore, the plan was to open. A midline laparotomy incision was then made from the pubic symphysis up to just above the umbilicus. Incision was made with 15 blade scalpel and cautery was then used to gain access to the abdomen. Once the abdomen was entered, the omentum was identified. It was adhered densely to a sigmoid colon where there was a contained perforation there and the pigtail catheter was sitting within that perforation. I was able to dissect around the omentum there and carefully cut through it and then was able to dissect between the mesentery of the small and large bowel to carefully mobilize the small intestine superiorly out of the way. Once that was completed, I dissected around the sigmoid colon distally near the rectosigmoid junction. It was very inflamed and thickened. Because of that, I had to go very low up into the high rectum to be able to create the transection. I was able to create a window into the mesentery using the Enseal. Then using an [employer] stapler with a green load, I was able to use two staple loads and cut across transecting the rectosigmoid junction. Once that was completed, the large bowel mesentery was taken down using the Enseal up to the descending colon where the bowel appeared to be softer. Just prior to bringing it up to create a colostomy, I felt more proximal trying to create a little bit more length and free it up from my ostomy and upon doing so I was able to find another contained perforation of the posterior wall of the descending colon into the retroperitoneum. This was likely the source of all the retroperitoneal air. The entire posterior wall of the descending colon was all of ischemic, necrotic and friable. This extended all way up to the splenic flexure. We then took down the entire splenic flexure all way around to the distal transverse colon where the bowel wall appeared healthy circumferentially. I then transected at that point and dissected through the transverse colon mesentery for a short distance to create enough length to be able to bring it out through the left midabdomen. Once that was completed, the abdomen was washed out with 3 liters of warm saline. Two 19-Vincentian Ra drains were then placed, one in the left upper quadrant and one in the pelvis. A #3-0 Prolene stitch was placed into the rectal stump to be able to use for marking when we come back. Next, the left midabdomen port site was extended to about 2 cm. Using cautery I made a circular incision through the subcutaneous tissues and skin all way to the level of the anterior fascia which was then opened with a linear incision vertically. The anterior and posterior rectus sheaths were then opened up for about 3 cm in width. The transverse colon was then brought out through here and held in place to create an ostomy. The midline incision was then closed with looped PDS suture. Once that was completed, the ostomy was matured with #3-0 Vicryl sutures. The incisions were closed with stapler. The drains were sutured in place with #2-0 silk sutures. The ostomy was covered with an inch and three quarter ostomy appliance. The abdomen was washed and dried, 4x4 and tape were applied, thus ending the procedure.
[2019-02-28] MEDS: PANTOPRAZOLE 40MG INJ (PROTONIX) (C9113) IV SCH (08:10)
[2019-02-28] MEDS: SENOKOT S TAB PO SCH ×2 (08:10→21:00)
[2019-02-28] MEDS: ENOXAPARIN 40 MG/0.4 ML SYRINGE (J1650) SC SCH (08:12)
[2019-02-28] MEDS: THIAMINE HCL 200 MG/2 ML VIAL (J3411) IV SCH (09:30)
--- NOTE | 2019-02-28 09:56 | IPNPDOC ---
Text Note Date of Service The patient was seen on 02/28/19. NOTE No acute events overnight. No more fevers, and pain is controlled s/p surgery. Tolerating diet. No complaints this am. Denies any flatus in the bag. VSSAF currently Drain - serosanguinous NAD abd - soft, less distended, no rebound, TTP appropriate, dressings c/d/i labs - below A) 63y/o female with complicated diverticulitis with free air and an abscess s/p IR drainage no prior colonoscopy s/p extended left hemicolectomy with end transverse colostomy due to perforated sigmoid and necrotic descending colon P) NPO except ice and water NGT to LIS dc mujica IVF abx monitor output will advance diet and dc ngt after there is flatus in the ostomy bag Steve Hernandez DO VS,Jony, I+O VS, Jony, I+O Laboratory Tests 02/28/19 05:19 Red Blood Count 4.37, Mean Corpuscular Volume 86.0, Mean Corpuscular Hemoglobin 29.1, Mean Corpuscular Hemoglobin Concent 33.8, Red Cell Distribution Width 13.5, Calcium Level 8.0 L Vital Signs Date Time Temp Pulse Resp B/P (MAP) Pulse Ox O2 Delivery O2 Flow Rate FiO2 02/28/19 08:00 97.7 107 18 146/72 (96) 97 2.0 02/24/19 14:51 Room Air I&O- Last 24 Hours up to 6 AM 02/28/19 06:00 Intake Total 5875 ml Output Total 1075 ml Balance 4800 ml MARCOS HERNANDEZ DO Feb 28, 2019 09:56
[2019-02-28] MEDS: ERTAPENEM SODIUM 1 GM in NS MINI-BAG PLUS 50 ML IV SCH (16:05)
[2019-02-28] MEDS: FOLIC ACID 1 MG in NS 50 ML IV SCH (20:59)
[2019-03-01] MEDS: LR 1,000 ML IV SCH ×3 (00:54→12:29)
[2019-03-01] MEDS: PIPERACILLIN/TAZOBACTAM SOD 3.375 GM in D5W MINI-BAG PLUS 50 ML IV SCH ×4 (01:30→19:48)
[2019-03-01 04:00] VITALS: BP 156/78
[2019-03-01 05:50] LABS: HEMOGLOBIN 11.1 g/dl (12.0-15.5); MEAN CORPUSCULAR HEMOGLOBIN 29.9 pg (27.0-33.0); MEAN CORPUSCULAR HGB CONC 33.6 g/dl (32.0-36.5); MEAN CORPUSCULAR VOLUME 88.9 fl (80.0-96.0); PLATELET COUNT, AUTOMATED 262 10^3/uL (150-450); RED BLOOD COUNT 3.71 10^6/uL (4.00-5.40); WHITE BLOOD COUNT 10.1 10^3/uL (4.0-10.0)
[2019-03-01 06:11] LABS: BLOOD UREA NITROGEN 13 MG/DL (7-18); CALCIUM LEVEL 7.9 MG/DL (8.8-10.2); CARBON DIOXIDE LEVEL 28 MEQ/L (21-32); CHLORIDE LEVEL 104 MEQ/L (98-107); CREATININE FOR GFR 0.43 MG/DL (0.55-1.30); GLOMERULAR FILTRATION RATE > 60.0 (>45); GLUCOSE, FASTING 93 MG/DL (70-100); POTASSIUM SERUM 3.3 MEQ/L (3.5-5.1); SODIUM LEVEL 141 MEQ/L (136-145)
[2019-03-01 08:00] VITALS: BP 166/79
[2019-03-01] MEDS: MORPHINE 4 MG/ML 1ML VIAL/SYRINGE (J2270) IV PRN ×5 (08:02→20:44)
--- NOTE | 2019-03-01 08:10 | REP ---
Clinical: Subcutaneous emphysema. Comparison: 02/28/2019. Findings: Pneumomediastinum and moderate subcutaneous emphysema extends into the neck similar to prior examination. Left lower lobe consolidation along with small bilateral pleural effusions are suggested. No pneumothorax. Nasogastric tube courses below left hemidiaphragm. Skeletal structures are intact. Impression: Evidence for pneumomediastinum and subcutaneous emphysema unchanged. Left lower lobe consolidation along with small bilateral pleural effusions. Electronically Signed by Oleg Gee MD 03/01/2019 08:01 A
[2019-03-01] MEDS: THIAMINE HCL 200 MG/2 ML VIAL (J3411) IV SCH (08:12)
[2019-03-01] MEDS: PANTOPRAZOLE 40MG INJ (PROTONIX) (C9113) IV SCH (08:12)
[2019-03-01] MEDS: ENOXAPARIN 40 MG/0.4 ML SYRINGE (J1650) SC SCH (08:13)
[2019-03-01] MEDS: SENOKOT S TAB PO SCH ×2 (08:13→21:00)
[2019-03-01 12:00] VITALS: BP 158/85
--- NOTE | 2019-03-01 12:04 | IPNPDOC ---
Text Note Date of Service The patient was seen on 03/01/19. NOTE No acute events overnight. No more fevers, and pain is controlled s/p surgery. Tolerating diet. No complaints this am. She is having flatus in the bag, and is out of bed to urinate. VSSAF currently Drain - serosanguinous NAD abd - soft, less distended, no rebound, TTP appropriate, dressings c/d/i labs - below A) 63y/o female with complicated diverticulitis with free air and an abscess s/p IR drainage no prior colonoscopy s/p extended left hemicolectomy with end transverse colostomy due to perforated sigmoid and necrotic descending colon P) clear liquids clamp NGT IVF abx monitor output will advance diet and dc ngt after there is stool in the ostomy bag Steve Hernandez DO VS,Fishbone, I+O VS, Fishbone, I+O Laboratory Tests 03/01/19 05:19 Red Blood Count 3.71 L, Mean Corpuscular Volume 88.9, Mean Corpuscular Hemoglob in 29.9, Mean Corpuscular Hemoglobin Concent 33.6, Red Cell Distribution Width 13.8, Calcium Level 7.9 L Vital Signs Date Time Temp Pulse Resp B/P (MAP) Pulse Ox O2 Delivery O2 Flow Rate FiO2 03/01/19 08:12 17 03/01/19 08:00 98.0 97 166/79 (108) 93 03/01/19 04:00 2.0 02/28/19 18:00 Nasal Cannula I&O- Last 24 Hours up to 6 AM 03/01/19 06:00 Intake Total 3420 ml Output Total 1730 ml Balance 1690 ml MARCOS HERNANDEZ DO Mar 01, 2019 12:04
--- NOTE | 2019-03-01 13:24 | IPNPDOC ---
Date Seen The patient was seen on 03/01/19. Progress Note Subjective: Pt says her pain is under control when she is supine but worsens to 5/10 when she moves. afebrile no chills. no sob. denies nausea, vomiting. Case discussed with Dr. Rivera, mainframe programmer analyst electronics worker,re: pneumomediastium and subcutaenous emphysema. Pt has no pneumothorax or severe respiratory distress to warrant any further testing or intervention. Objective: physical examination: Vital signs: pls see below General: pleasant, NAD AAOx3 anicteric no jaundice. subcutaneous emphysema noted. HEENT: moist mucus membranes Heart: S1S2 RRR Lungs: diminished, CTA no W/R/R Abdomen :soft left colostomy which was empty and flat with no flatus, bloody drain. EXT: no edema, venodyne boots laboratory data,imaging studies, microbiology: pls see below CT abd/pelvis: Severe diverticulitis with two large pericolonic abscesses adjacent to the sigmoid colon as described. There is marked pneumoretroperitoneum. There are findings compatible with hepatic cirrhosis. No hepatic masses. Bilateral renal parapelvic cysts. A/P:63 yo female with lower abdomen pain, N,V and diarrhea worse over past 1 week. Pateint states since september 2018, she has lost 25-30# because of nausea, unable to tolerate smell or taste of food. She states in November, she had first episode of diverticulitis and treated with 14 days of 2 antibiotics (presumed flagyl,levaquin). States abdomen pain never subsided and was intermittent on/off since then. Did not get colonoscopy. She states 02/16/19 pain worsened in intensity and severity and became sharp constant and associated with N,V,D. she has had fever and chills x4 days. patient and daughters (2) states worried and afraid that she will end up similar to her father who from complications of colon resection with colostomy and undiagnosed gallbladder infection. 1) Perforated diverticular abscesses with necrotic bowel Surgery consulted (dr Hernandez) blood cultures noted s/p zosyn IV which was discontinued on 02/27/19 IVF, s/p IR Ct guided drainage placement 02/25/19 02/27/19 s/p ex lap, abd washout, and left colostomy defer to surgery if entereg and tpn needed. 2) extensive bilateral pneumo-retroperitoneum. seen on CT scan and serial CXR will discuss with pulmonary 3) Probable hepatocellular disease (or cirrhosis) - normal liver function test - reviewedUS gallbladder and hepatitis (ABC) profile; 4) History of EtOH use without dependence - watch for s/s of withdraw, although patient states she has gone long periods of time without EtOH use and no problems in past. on [facility] protocol. VS, I&O, 24H, Fishbone Vital Signs/I&O Vital Signs Date Time Temp Pulse Resp B/P (MAP) Pulse Ox O2 Delivery O2 Flow Rate FiO2 03/01/19 12:29 17 03/01/19 12:00 98.0 104 158/85 (109) 90 03/01/19 04:00 2.0 02/28/19 18:00 Nasal Cannula I&O- Last 24 Hours up to 6 AM 03/01/19 06:00 Intake Total 3420 ml Output Total 1730 ml Balance 1690 ml Laboratory Data 24H LABS Laboratory Tests 2 03/01/19 05:19: Nucleated Red Blood Cells % (auto) 0.0, Anion Gap 9, Glomerular Filtration Rate > 60.0, Blood Urea Nitrogen 13, Creatinine 0.43L, Sodium Level 141, Potassium Level 3.3L, Chloride Level 104, Carbon Dioxide Level 28, Calcium Level 7.9L CBC/BMP Laboratory Tests 03/01/19 05:19 Red Blood Count 3.71 L, Mean Corpuscular Volume 88.9, Mean Corpuscular Hemoglobin 29.9, Mean Corpuscular Hemoglobin Concent 33.6, Red Cell Distribution Width 13.8, Calcium Level 7.9 L Microbiology Microbiology 02/24/19 Blood Culture - Preliminary, Resulted No Growth after 72 hours. All specime... 02/25/19 Anaerobic Culture, Received Pending 02/25/19 Gram Stain - Final, Complete 02/25/19 Abscess Culture - Final, Complete Escherichia Coli#2 Streptococcus Anginosus NANCY Abdi MD Mar 01, 2019 13:16
[2019-03-01] MEDS ORDERED: POTASSIUM CHLORIDE 10 MEQ SR TABLET PO ONE (13:30)
[2019-03-01] MEDS: KCL 10MEQ/100ML SWI (KRUN) 10 MEQ in APPROPRIATE DILUENT 1 EA IV SCH ×2 (15:12→16:09)
[2019-03-01 16:00] VITALS: BP 140/80
[2019-03-01] MEDS: ERTAPENEM SODIUM 1 GM in NS MINI-BAG PLUS 50 ML IV SCH (17:33)
[2019-03-01 20:00] VITALS: BP 173/79
[2019-03-01] MEDS: FOLIC ACID 1 MG in NS 50 ML IV SCH (20:44)
[2019-03-01] MEDS: KETOROLAC 30 MG/ML VIAL (J1885) IV PRN (23:33)
[2019-03-01 23:59] VITALS: BP 176/81
[2019-03-02] VITALS (10 sets, daily range): BP systolic 145–157; BP diastolic 75–93; O2SAT 69–98
[2019-03-02] MEDS: LR 1,000 ML IV SCH ×3 (00:56→13:19)
[2019-03-02] MEDS: PIPERACILLIN/TAZOBACTAM SOD 3.375 GM in D5W MINI-BAG PLUS 50 ML IV SCH ×4 (02:31→20:45)
[2019-03-02] MEDS: MORPHINE 4 MG/ML 1ML VIAL/SYRINGE (J2270) IV PRN ×5 (05:16→18:35)
[2019-03-02 05:17] LABS: HEMATOCRIT 33.9 % (36.0-47.0); HEMOGLOBIN 11.3 g/dl (12.0-15.5); MEAN CORPUSCULAR HEMOGLOBIN 29.3 pg (27.0-33.0); MEAN CORPUSCULAR HGB CONC 33.3 g/dl (32.0-36.5); MEAN CORPUSCULAR VOLUME 87.8 fl (80.0-96.0); PLATELET COUNT, AUTOMATED 323 10^3/uL (150-450); RED BLOOD COUNT 3.86 10^6/uL (4.00-5.40); WHITE BLOOD COUNT 13.4 10^3/uL (4.0-10.0)
[2019-03-02 05:37] LABS: BLOOD UREA NITROGEN 8 MG/DL (7-18); CALCIUM LEVEL 8.2 MG/DL (8.8-10.2); CARBON DIOXIDE LEVEL 31 MEQ/L (21-32); CHLORIDE LEVEL 103 MEQ/L (98-107); CREATININE FOR GFR 0.52 MG/DL (0.55-1.30); GLOMERULAR FILTRATION RATE > 60.0 (>45); GLUCOSE, FASTING 90 MG/DL (70-100); POTASSIUM SERUM 3.8 MEQ/L (3.5-5.1); SODIUM LEVEL 139 MEQ/L (136-145)
[2019-03-02] MEDS: PANTOPRAZOLE 40MG INJ (PROTONIX) (C9113) IV SCH (08:22)
[2019-03-02] MEDS: THIAMINE HCL 200 MG/2 ML VIAL (J3411) IV SCH (08:23)
[2019-03-02] MEDS: ENOXAPARIN 40 MG/0.4 ML SYRINGE (J1650) SC SCH (08:23)
[2019-03-02] MEDS: SENOKOT S TAB PO SCH ×2 (08:24→20:46)
--- NOTE | 2019-03-02 09:21 | IPNPDOC ---
Subjective General Date/Time Seen The patient was seen on 03/02/19 at 09:19. Subject Chief Complaint/History The patient is a 63-year-old female admitted with a reason for visit of Abscess Of Sigmoid Colon Acute Diverticulitis. Patient reports she's feeling tired but otherwise improved since surgery. She denies any shortness of breath. She reports discomfort around the abdominal incision and also on the lower pelvic area. Not much output from the colostomy yet. She is being allowed to drink within nasogastric tube in place and clamped. She denies any nausea. She has gotten out of bed to chair was ambulated yet s rosa preparing to ambulate to hallways today. Current Medications Current Medications Current Medications Acetaminophen (Tylenol Tab) 325 mg Q4HP PRN PO PAIN / FEVER Last administered on 02/27/19at 05:29; Start 02/24/19 at 15:45 Acetaminophen/ Hydrocodone Bitart ([place], Anexsia 5/325) 1 tab Q4HP PRN PO MODERATE PAIN (PS 5-7); Start 02/27/19 at 17:30 Diatrizoate Meglum/ Diatrizoate Sod (Gastrografin) 10 ml Q30M PO Last administered on 02/27/19at 09:23; Start 02/27/19 at 09:15; Stop 02/27/19 at 09:46; Status DC Enoxaparin Sodium (Lovenox) 40 mg DAILY SC Last administered on 03/02/19at 08:23; Start 02/28/19 at 09:00 Ertapenem 1 gm/ Sodium Chloride 50 ml @ 100 mls/hr Q24H IV Last administered on 03/01/19at 17:33; Start 02/28/19 at 16:00 Fentanyl Citrate (Sublimaze) 25 mcg Q5MP PRN IV MODERATE PAIN (PS 4-7); Start 02/27/19 at 17:45; Stop 02/27/19 at 18:45; Status DC Folic Acid 1 mg/ Sodium Chloride 50.2 ml @ 100.4 mls/ hr Q24H IV Last administered on 03/01/19at 20:44; Start 02/27/19 at 21:00 Home Med (Med Rec Complete!) ASDIRECTED XX ; Start 02/24/19 at 13:45; Stop 02/24/19 at 13:45; Status DC Hydromorphone HCl (Dilaudid) 0.2 mg Q5MP PRN IV MODERATE/SEVERE PAIN (PS 5-10) Last administered on 02/27/19at 18:10; Start 02/27/19 at 17:45; Stop 02/27/19 at 18:45; Status DC Ketorolac Tromethamine (ToRADol) 30 mg Q6HP PRN IV MILD/MODERATE PAIN (PS 1-7) Last administered on 03/01/19at 23:33; Start 02/27/19 at 17:30; Stop 03/04/19 at 17:29 Lactated Ringer's 1,000 ml @ 100 mls/hr Q10H IV ; Start 02/27/19 at 17:45; Stop 02/27/19 at 18:22; Status DC Lactated Ringer's 1,000 ml @ 125 mls/hr Q8H IV Last administered on 03/02/19at 00:56; Start 02/27/19 at 18:30 Lorazepam (Ativan) 1 mg Q2HP PRN IV WITHDRAWAL SYMPTOMS; Start 02/27/19 at 19:15 Morphine Sulfate (Morphine Sulfate Inj) 1 mg Q2HP PRN IV MODERATE PAIN (PS 5-7) Last administered on 02/25/19at 08:26; Start 02/24/19 at 15:30; Stop 02/25/19 at 08:53; Status DC Morphine Sulfate (Morphine Sulfate Inj) 2 mg Q2HP PRN IV MODERATE PAIN (PS 5-7) Last administered on 03/02/19at 08:23; Start 02/25/19 at 09:00 Ondansetron HCl (ZOFRAN INJection) 4 mg Q4HP PRN IV NAUSEA OR VOMITING; Start 02/24/19 at 15:30 Ondansetron HCl (ZOFRAN INJection) 4 mg Q4HP PRN IV NAUSEA OR VOMITING Last administered on 02/27/19at 17:28; Start 02/27/19 at 17:45; Stop 02/27/19 at 18:45; Status DC Oxazepam (Serax) 10 mg Q4HP PRN PO withdrawal; Start 02/27/19 at 19:30 Pantoprazole Sodium (Protonix) 40 mg DAILY IV Last administered on 03/02/19at 08:22; Start 02/28/19 at 09:00 Piperacillin Sod/ Tazobactam Sod 3.375 gm/Dextrose 50 ml @ 50 mls/hr RQ6H IV Last administered on 03/02/19at 08:23; Start 02/24/19 at 20:00 Potassium Chloride 10 meq/ IV Miscellaneous Supplies 100 ml @ 100 mls/hr Q1H IV Last administered on 03/01/19at 16:09; Start 03/01/19 at 15:00; Stop 03/01/19 at 16:59; Status DC Potassium Chloride/Dextrose/ Sod Cl 1,000 ml @ 125 mls/hr Q8H IV ; Start 02/27/19 at 17:22; Stop 02/27/19 at 18:23; Status DC Senna/Docusate Sodium (Senokot S) 1 tab BID PO Last administered on 02/28/19at 08:10; Start 02/27/19 at 21:00 Sodium Chloride 1,000 ml @ 100 mls/hr Q10H IV Last administered on 02/26/19at 07:30; Start 02/24/19 at 15:30; Stop 02/26/19 at 17:32; Status DC Thiamine HCl (VITAMIN B1 INJection) 100 mg DAILY IV Last administered on 03/02/19at 08:23; Start 02/27/19 at 20:00 Allergies Coded Allergies: No Known Allergies (Unverified , 02/24/19) Objective Physical Examination Examination GENERAL APPEARANCE: Overall looks comfortable. SKIN: Warm and dry. HEENT: NG tube in place, clamped. Lips mildly dry. NECK: Supple, no thyromegaly. No obvious jugular venous distention. LUNGS: Clear to auscultation bilaterally. No wheezing appreciated. Small amount of subcutaneous emphysema on the neck. Skin is intact HEART: No chest wall abnormalities. Regular rate and rhythm with no murmurs appreciated. ABDOMEN: Abdomen is mildly distended, soft, postoperative dressings with minimal staining overall clean and dry. SONIA drained with almost serous output now. Colostomy swollen otherwise viable, small amount of air in the bag but no stool output yet. Minimally tender around the incision sites.. EXTREMITIES: Minimal lower extremity edema. Vital Signs Vital Signs Date Time Temp Pulse Resp B/P (MAP) Pulse Ox O2 Delivery O2 Flow Rate FiO2 03/02/19 08:23 17 03/02/19 08:00 97.9 90 153/90 (111) 97 03/02/19 04:00 2.0 02/28/19 18:00 Nasal Cannula I&Os I&O- Last 24 Hours up to 6 AM 03/02/19 06:00 Intake Total 1040 ml Output Total 495 ml Balance 545 ml Laboratory Data Labs 24H Laboratory Tests 2 03/02/19 04:53: Nucleated Red Blood Cells % (auto) 0.0, Anion Gap 5L, Glomerular Filtration Rate > 60.0, Blood Urea Nitrogen 8, Creatinine 0.52L, Sodium Level 139, Potassium Level 3.8, Chloride Level 103, Carbon Dioxide Level 31, Calcium Level 8.2L CBC/BMP Laboratory Tests 03/02/19 04:53 Red Blood Count 3.86 L, Mean Corpuscular Volume 87.8, Mean Corpuscular Hemoglobin 29.3, Mean Corpuscular Hemoglobin Concent 33.3, Red Cell Distribution Width 14.2, Calcium Level 8.2 L Microbiology Microbiology 02/24/19 Blood Culture - Final, Complete NO GROWTH AFTER 5 DAYS 02/25/19 Anaerobic Culture - Final, Complete Bacteroides Ovatus/Thetaiotaom 02/25/19 Gram Stain - Final, Complete 02/25/19 Abscess Culture - Final, Complete Escherichia Coli#2 Streptococcus Anginosus Grp Impression Postop day 3 after exploratory laparotomy, left colectomy and colostomy or sigmoid colon diverticulitis with abscess and obstruction and ischemic perforation of the left colon. She is stable postoperatively and not showing any signs of severe sepsis. The subcutaneous emphysema is port lead due to the risk of a section of the air from the ischemic perforation of the left colon. She has slight bump on her leukocytosis today but not febrile. Colostomy not fully functional yet. She is t olerating clears the clamp NG tube. I'll remove the NG tube today. I have encouraged her to ambulate to hallways. I'll maintain her just clears today. Plan / VTE VTE Prophylaxis Ordered?: Yes MAGDALENA KEITH MD Mar 02, 2019 09:21
--- NOTE | 2019-03-02 09:41 | IPNPDOC ---
Date Seen The patient was seen on 03/02/19. Progress Note Subjective: This morning,pt says she is tolerating her liquid diet, but still not to baseline. She appears much sleepier and lethargic due to pain meds. Pt says her pain is under control when she is supine but worsens to 5/10 when she moves. afebrile no chills. no sob. denies nausea, vomiting. Case discussed with Dr. Rivera, retina subspecialist government relations director,re: pneumomediastium and subcutaneous emphysema. Pt has no pneumothorax or severe respiratory distress to warrant any further testing or intervention. Objective: physical examination: Vital signs: pls see below General: pleasant, NAD AAOx3 anicteric no jaundice. subcutaneous emphysema noted. HEENT: moist mucus membranes Heart: S1S2 RRR Lungs: diminished, CTA no W/R/R Abdomen :soft left colostomy which was empty and flat with no flatus, bloody drain. EXT: no edema, venodyne boots laboratory data,imaging studies, microbiology: pls see below CT abd/pelvis: Severe diverticulitis with two large pericolonic abscesses adjacent to the sigmoid colon as described. There is marked pneumoretroperitoneum. There are findings compatible with hepatic cirrhosis. No hepatic masses. Bilateral renal parapelvic cysts. A/P:63 yo female with lower abdomen pain, N,V and diarrhea worse over past 1 week. Pateint states since september 2018, she has lost 25-30# because of nausea, unable to tolerate smell or taste of food. She states in November, she had first episode of diverticulitis and treated with 14 days of 2 antibiotics (presumed flagyl,levaquin). States abdomen pain never subsided and was intermittent on/off since then. Did not get colonoscopy. She states 02/16/19 pain worsened in intensity and severity and became sharp constant and associated with N,V,D. she has had fever and chills x4 days. patient and daughters (2) states worried and afraid that she will end up similar to her father who from complications of colon resection with colostomy and undiagnosed gallbladder infection. Perforated diverticular abscesses with necrotic bowel Surgery consulted (dr Hernandez) blood cultures noted s/p zosyn IV which was discontinued on 02/27/19 IVF, s/p IR Ct guided drainage placement 02/25/19 02/27/19 s/p ex lap, abd washout, and left colostomy defer to surgery if entereg and tpn needed. extensive bilateral pneumo-retroperitoneum. seen on CT scan and serial CXR Case discussed with Dr. Rivera, retina subspecialist government relations director,re: pneumomediastium and subcutaneous emphysema. Pt has no pneumothorax or severe respiratory distress to warrant any further testing or intervention. due to perforated diverticulitis Probable hepatocellular disease (or cirrhosis) - normal liver function test - reviewedUS gallbladder and hepatitis (ABC) profile; History of EtOH use without dependence - watch for s/s of withdraw, although patient states she has gone long periods of time without EtOH use and no problems in past. on [facility] protocol. VS, I&O, 24H, Fishbone Vital Signs/I&O Vital Signs Date Time Temp Pulse Resp B/P (MAP) Pulse Ox O2 Delivery O2 Flow Rate FiO2 03/02/19 05:16 18 03/02/19 04:00 2.0 03/02/19 04:00 96.4 92 157/93 (114) 94 02/28/19 18:00 Nasal Cannula I&O- Last 24 Hours up to 6 AM 03/02/19 06:00 Intake Total 1040 ml Output Total 495 ml Balance 545 ml Laboratory Data 24H LABS Laboratory Tests 2 03/02/19 04:53: Nucleated Red Blood Cells % (auto) 0.0, Anion Gap 5L, Glomerular Filtration Rate > 60.0, Blood Urea Nitrogen 8, Creatinine 0.52L, Sodium Level 139, Potassium Level 3.8, Chloride Level 103, Carbon Dioxide Level 31, Calcium Level 8.2L CBC/BMP Laboratory Tests 03/02/19 04:53 Red Blood Count 3.86 L, Mean Corpuscular Volume 87.8, Mean Corpuscular Hemoglobin 29.3, Mean Corpuscular Hemoglobin Concent 33.3, Red Cell Distribution Width 14.2, Calcium Level 8.2 L Microbiology Microbiology 02/24/19 Blood Culture - Final, Complete NO GROWTH AFTER 5 DAYS 02/25/19 Anaerobic Culture - Final, Complete Bacteroides Ovatus/Thetaiotaom 02/25/19 Gram Stain - Final, Complete 02/25/19 Abscess Culture - Final, Complete Escherichia Coli#2 Streptococcus Anginosus NANCY Abdi MD Mar 02, 2019 06:21
[2019-03-02] MEDS: ALVIMOPAN 12 MG CAPSULE (ENTEREG) PO SCH ×2 (13:19→20:45)
[2019-03-02] MEDS: ERTAPENEM SODIUM 1 GM in NS MINI-BAG PLUS 50 ML IV SCH (16:26)
[2019-03-02 16:46] LABS: HEMATOCRIT 35.3 % (36.0-47.0); HEMOGLOBIN 11.7 g/dl (12.0-15.5); MEAN CORPUSCULAR HGB CONC 33.1 g/dl (32.0-36.5); MEAN CORPUSCULAR VOLUME 87.4 fl (80.0-96.0); PLATELET COUNT, AUTOMATED 322 10^3/uL (150-450); RED BLOOD COUNT 4.04 10^6/uL (4.00-5.40); WHITE BLOOD COUNT 14.3 10^3/uL (4.0-10.0)
--- NOTE | 2019-03-02 16:58 | REP ---
Clinical: Postoperative fever. Comparison: 03/01/2019. Findings: Left mid to lower lobe ill-defined infiltrates suggesting atelectasis and pleural effusion. Right basilar atelectasis and smaller right pleural reaction cannot be excluded. No pneumothorax. Cardiac silhouette is within normal limits. Skeletal structures are intact. Surgical pradeep and drain noted in the visualized abdomen. Impression: Left-sided infiltrate/atelectasis and pleural effusion along with trace right basilar opacity. Findings are similar to prior examination. Electronically Signed by Oleg Gee MD 03/02/2019 04:49 P
--- NOTE | 2019-03-02 16:59 | REP ---
Clinical: Postoperative fever. Technique: Portable supine view of the abdomen and pelvis. Findings: Postoperative changes throughout the abdomen and pelvis similar to prior examination. No obvious bowel obstruction. Contrast again identified with in the nonobstructed nondilated large bowel along the right side of the abdomen. Impression: Nonspecific postoperative appearance of the abdomen and pelvis. Electronically Signed by Oleg Gee MD 03/02/2019 04:51 P
[2019-03-02 17:41] LABS: ERYTHROCYTE SEDIMENTATION RATE 89 mm/hr (0-30)
[2019-03-02 17:57] LABS: ATYPICAL LYMPH 3 % (0-5); EOSINOPHILS 3 % (0-5); LYMPHOCYTES 16 % (16-52); MONOCYTES 4 % (0-8); NEUTROPHILS 73 % (35-75); PROMYELOCYTES 1 % (0-0)
[2019-03-02 17:58] LABS: PLATELET ESTIMATE NORMAL (NORMAL)
[2019-03-02 17:59] LABS: PLATELET CLUMPS SMALL AMT
[2019-03-02] MEDS: KETOROLAC 30 MG/ML VIAL (J1885) IV PRN (20:46)
[2019-03-02] MEDS: FOLIC ACID 1 MG in NS 50 ML IV SCH (21:53)
[2019-03-03] VITALS (9 sets, daily range): BP systolic 136–158; BP diastolic 76–88; O2SAT 90–97
[2019-03-03] MEDS: PIPERACILLIN/TAZOBACTAM SOD 3.375 GM in D5W MINI-BAG PLUS 50 ML IV SCH ×2 (01:12→08:08)
[2019-03-03] MEDS: MORPHINE 4 MG/ML 1ML VIAL/SYRINGE (J2270) IV PRN ×4 (01:12→20:28)
[2019-03-03] MEDS: LR 1,000 ML IV SCH (01:12)
[2019-03-03 04:49] LABS: HEMATOCRIT 33.6 % (36.0-47.0); HEMOGLOBIN 11.2 g/dl (12.0-15.5); MEAN CORPUSCULAR HEMOGLOBIN 29.9 pg (27.0-33.0); MEAN CORPUSCULAR HGB CONC 33.3 g/dl (32.0-36.5); MEAN CORPUSCULAR VOLUME 89.8 fl (80.0-96.0); PLATELET COUNT, AUTOMATED 314 10^3/uL (150-450); RED BLOOD COUNT 3.74 10^6/uL (4.00-5.40)
[2019-03-03 05:09] LABS: BLOOD UREA NITROGEN 5 MG/DL (7-18); CALCIUM LEVEL 7.5 MG/DL (8.8-10.2); CARBON DIOXIDE LEVEL 32 MEQ/L (21-32); CHLORIDE LEVEL 104 MEQ/L (98-107); CREATININE FOR GFR 0.44 MG/DL (0.55-1.30); GLOMERULAR FILTRATION RATE > 60.0 (>45); GLUCOSE, FASTING 98 MG/DL (70-100); POTASSIUM SERUM 3.3 MEQ/L (3.5-5.1); SODIUM LEVEL 140 MEQ/L (136-145)
[2019-03-03] MEDS ORDERED: POTASSIUM CHLORIDE 10 MEQ SR TABLET PO ONE (06:30)
[2019-03-03] MEDS ORDERED: CALCIUM GLUCONATE 1,000 MG in D5W MINI-BAG PLUS 100 ML IV ONE (06:30)
[2019-03-03] MEDS: SENOKOT S TAB PO SCH ×2 (08:06→20:28)
[2019-03-03] MEDS: PANTOPRAZOLE 40MG INJ (PROTONIX) (C9113) IV SCH (08:06)
[2019-03-03] MEDS: NORCO, ANEXSIA 5/325MG TABLET (HYDROcodone/ACETAMINOPHEN) PO PRN (08:07)
[2019-03-03] MEDS: ENOXAPARIN 40 MG/0.4 ML SYRINGE (J1650) SC SCH (08:07)
[2019-03-03] MEDS: ALVIMOPAN 12 MG CAPSULE (ENTEREG) PO SCH ×2 (08:07→20:28)
[2019-03-03] MEDS: THIAMINE HCL 200 MG/2 ML VIAL (J3411) IV SCH (08:08)
--- NOTE | 2019-03-03 09:04 | IPNPDOC ---
Subjective General Date/Time Seen The patient was seen on 03/03/19 at 08:34. Subject Chief Complaint/History The patient is a 63-year-old female admitted with a reason for visit of Abscess Of Sigmoid Colon Acute Diverticulitis. Patient started to function from her colostomy. Afebrile. She has been getting up to the bathroom but not ambulated out of the [place] yet Current Medications Current Medications Current Medications Acetaminophen (Tylenol Tab) 325 mg Q4HP PRN PO PAIN / FEVER Last administered on 02/27/19at 05:29; Start 02/24/19 at 15:45 Acetaminophen/ Hydrocodone Bitart ([place], Anexsia 5/325) 1 tab Q4HP PRN PO MODERATE PAIN (PS 5-7) Last administered on 03/03/19at 08:07; Start 02/27/19 at 17:30 Alvimopan (Entereg) 12 mg BID PO Last administered on 03/03/19at 08:07; Start 03/02/19 at 09:00; Stop 03/09/19 at 08:59 Diatrizoate Meglum/ Diatrizoate Sod (Gastrografin) 10 ml Q30M PO Last administered on 02/27/19at 09:23; Start 02/27/19 at 09:15; Stop 02/27/19 at 09:46; Status DC Enoxaparin Sodium (Lovenox) 40 mg DAILY SC Last administered on 03/03/19at 08:07; Start 02/28/19 at 09:00 Ertapenem 1 gm/ Sodium Chloride 50 ml @ 100 mls/hr Q24H IV Last administered on 03/02/19at 16:26; Start 02/28/19 at 16:00 Fentanyl Citrate (Sublimaze) 25 mcg Q5MP PRN IV MODERATE PAIN (PS 4-7); Start 02/27/19 at 17:45; Stop 02/27/19 at 18:45; Status DC Folic Acid 1 mg/ Sodium Chloride 50.2 ml @ 100.4 mls/ hr Q24H IV Last administered on 03/02/19at 21:53; Start 02/27/19 at 21:00 Home Med (Med Rec Complete!) ASDIRECTED XX ; Start 02/24/19 at 13:45; Stop 02/24/19 at 13:45; Status DC Hydromorphone HCl (Dilaudid) 0.2 mg Q5MP PRN IV MODERATE/SEVERE PAIN (PS 5-10) Last administered on 02/27/19at 18:10; Start 02/27/19 at 17:45; Stop 02/27/19 at 18:45; Status DC Ketorolac Tromethamine (ToRADol) 30 mg Q6HP PRN IV MILD/MODERATE PAIN (PS 1-7) Last administered on 03/02/19at 20:46; Start 02/27/19 at 17:30; Stop 03/04/19 at 17:29 Lactated Ringer's 1,000 ml @ 100 mls/hr Q10H IV ; Start 02/27/19 at 17:45; Stop 02/27/19 at 18:22; Status DC Lactated Ringer's 1,000 ml @ 125 mls/hr Q8H IV Last administered on 03/03/19at 01:12; Start 02/27/19 at 18:30 Lorazepam (Ativan) 1 mg Q2HP PRN IV WITHDRAWAL SYMPTOMS; Start 02/27/19 at 19:15 Morphine Sulfate (Morphine Sulfate Inj) 1 mg Q2HP PRN IV MODERATE PAIN (PS 5-7) Last administered on 02/25/19at 08:26; Start 02/24/19 at 15:30; Stop 02/25/19 at 08:53; Status DC Morphine Sulfate (Morphine Sulfate Inj) 2 mg Q2HP PRN IV MODERATE PAIN (PS 5-7) Last administered on 03/03/19at 05:41; Start 02/25/19 at 09:00 Ondansetron HCl (ZOFRAN INJection) 4 mg Q4HP PRN IV NAUSEA OR VOMITING; Start 02/24/19 at 15:30 Ondansetron HCl (ZOFRAN INJection) 4 mg Q4HP PRN IV NAUSEA OR VOMITING Last administered on 02/27/19at 17:28; Start 02/27/19 at 17:45; Stop 02/27/19 at 18:45; Status DC Oxazepam (Serax) 10 mg Q4HP PRN PO withdrawal; Start 02/27/19 at 19:30 Pantoprazole Sodium (Protonix) 40 mg DAILY IV Last administered on 03/03/19at 08:06; Start 02/28/19 at 09:00 Piperacillin Sod/ Tazobactam Sod 3.375 gm/Dextrose 50 ml @ 50 mls/hr RQ6H IV Last administered on 03/03/19at 08:08; Start 02/24/19 at 20:00 Potassium Chloride 10 meq/ IV Miscellaneous Supplies 100 ml @ 100 mls/hr Q1H IV Last administered on 03/01/19at 16:09; Start 03/01/19 at 15:00; Stop 03/01/19 at 16:59; Status DC Potassium Chloride/Dextrose/ Sod Cl 1,000 ml @ 125 mls/hr Q8H IV ; Start 02/27/19 at 17:22; Stop 02/27/19 at 18:23; Status DC Senna/Docusate Sodium (Senokot S) 1 tab BID PO Last administered on 03/03/19at 08:06; Start 02/27/19 at 21:00 Sodium Chloride 1,000 ml @ 100 mls/hr Q10H IV Last administered on 02/26/19at 07:30; Start 02/24/19 at 15:30; Stop 02/26/19 at 17:32; Status DC Thiamine HCl (VITAMIN B1 INJection) 100 mg DAILY IV Last administered on 03/03/19at 08:08; Start 02/27/19 at 20:00 Allergies Coded Allergies: No Known Allergies (Unverified , 02/24/19) Objective Physical Examination Examination GENERAL APPEARANCE: Comfortable. SKIN: Warm and moist. HEENT: Mild pale palpebral conjunctiva. Lips moist. NECK: Supple, no thyromegaly. No obvious jugular venous distention. LUNGS: Clear to auscultation bilaterally. No wheezing appreciated. HEART: No chest wall abnormalities. Regular rate and rhythm with no murmurs appreciated. ABDOMEN: Abdomen is minimally distended, soft, midline incision clean dry and intact dressings. Colostomy with loose stool in the bag small amount of air, viable. SONIA drains are serous. EXTREMITIES: Minimal edema. Vital Signs Vital Signs Date Time Temp Pulse Resp B/P (MAP) Pulse Ox O2 Delivery O2 Flow Rate FiO2 03/03/19 08:07 18 03/03/19 04:00 97.1 85 150/88 (108) 99 03/03/19 02:00 Nasal Cannula 2.0 I&Os I&O- Last 24 Hours up to 6 AM 03/03/19 06:00 Intake Total 830 ml Output Total 440 ml Balance 390 ml Laboratory Data Labs 24H Laboratory Tests 2 03/02/19 16:36: Immature Granulocyte % (Auto) , Nucleated Red Blood Cells % (auto) 0.0, Neutrophils 73, Lymphocytes (Manual) 16, Monocytes (Manual) 4, Eosinophils (Manual) 3, Promyelocytes 1H, Atypical Lymphocytes 3, Platelet Estimate NORMAL, Clumped Platelets SMALL AMT, Red Blood Cell Morphology NORMAL, Erythrocyte Sedimentation Rate 89H, Lactic Acid Level 0.9, C-Reactive Protein, Quantitative 13.80H 03/03/19 04:31: Nucleated Red Blood Cells % (auto) 0.0, Anion Gap 4L, Glomerular Filtration Rate > 60.0, Blood Urea Nitrogen 5L, Creatinine 0.44L, Sodium Level 140, Potassium Level 3.3L, Chloride Level 104, Carbon Dioxide Level 32, Calcium Level 7.5L CBC/BMP Laboratory Tests 03/02/19 16:36 Red Blood Count 4.04, Mean Corpuscular Volume 87.4, Mean Corpuscular Hemoglobin 29.0, Mean Corpuscular Hemoglobin Concent 33.1, Red Cell Distribution Width 14.1 03/03/19 04:31 Red Blood Count 3.74 L, Mean Corpuscular Volume 89.8, Mean Corpuscular Hemoglobin 29.9, Mean Corpuscular Hemoglobin Concent 33.3, Red Cell Distribution Width 14.4, Calcium Level 7.5 L Microbiology Microbiology 03/02/19 Blood Culture, Received Pending 03/02/19 Blood Culture, Received Pending 02/24/19 Blood Culture - Final, Complete NO GROWTH AFTER 5 DAYS 02/25/19 Anaerobic Culture - Final, Complete Bacteroides Ovatus/Thetaiotaom 02/25/19 Gram Stain - Final, Complete 02/25/19 Abscess Culture - Final, Complete Escherichia Coli#2 Streptococcus Anginosus Grp Impression Postop day 4 after exploratory laparotomy, left colectomy and colostomy or sigmoid colon diverticulitis with abscess and obstruction and ischemic perforation of the left colon. I will advance her diet to soft foods. Encouraged her to try and ambulate outside. We'll stop the IV fluids. Continue on Invanz for now. Plan / VTE VTE Prophylaxis Ordered?: Yes MAGDALENA KEITH MD Mar 03, 2019 08:36
[2019-03-03] MEDS ORDERED: SLF 3 ML SYR IV PRN (10:45)
--- NOTE | 2019-03-03 11:47 | IPNPDOC ---
Date Seen The patient was seen on 03/03/19. Progress Note Subjective: on 03/02/19, pt had a low grade temp 100.0, ua, blood cx sent. cxr: left sided infiltrate/pleural effuision. right opacity. no sob or cough. denies nausea, vomiting. Case discussed with Dr. Rivera, supervisor assembling personnel records clerk,re: pneumomediastium and subcutaneous emphysema. Pt has no pneumothorax or severe respiratory distress to warrant any further testing or intervention. Objective: physical examination: Vital signs: pls see below General: pleasant, NAD AAOx3 anicteric no jaundice. subcutaneous emphysema noted. HEENT: moist mucus membranes Heart: S1S2 RRR Lungs: diminished, bibasilar crackles no W/R/R Abdomen :soft left colostomy which was empty and flat with no flatus, bloody drain. EXT: no edema, venodyne boots laboratory data,imaging studies, microbiology: pls see below CT abd/pelvis: Severe diverticulitis with two large pericolonic abscesses adjacent to the sigmoid colon as described. There is marked pneumoretroperitoneum. There are findings compatible with hepatic cirrhosis. No hepatic masses. Bilateral renal parapelvic cysts. A/P:63 yo female with lower abdomen pain, N,V and diarrhea worse over past 1 week. Pateint states since september 2018, she has lost 25-30# because of nausea, unable to tolerate smell or taste of food. She states in November, she had first episode of diverticulitis and treated with 14 days of 2 antibiotics (presumed flagyl,levaquin). States abdomen pain never subsided and was intermittent on/off since then. Did not get colonoscopy. She states 02/16/19 pain worsened in intensity and severity and became sharp constant and associated with N,V,D. she has had fever and chills x4 days. patient and daughters (2) states worried and afraid that she will end up similar to her father who from complications of colon resection with colostomy and undiagnosed gallbladder infection. Perforated diverticular abscesses with necrotic bowel Surgery consulted (dr Hernandez) blood cultures noted s/p zosyn IV which was discontinued on 02/27/19 IVF, on IV ertapenem. s/p IR Ct guided drainage placement 02/25/19 02/27/19 s/p ex lap, abd washout, and left colostomy defer to surgery for diet advancement. Sepsis due to diverticular abscess, perforation Surgery consulted (dr Hernandez) blood cultures noted s/p zosyn IV which was discontinued on 02/27/19 IVF, on IV ertapenem. s/p IR Ct guided drainage placement 02/25/19 02/27/19 s/p ex lap, abd washout, and left colostomy defer to surgery for diet advancement. Left basilar infiltrate/atelectasis, right base opacity no symptoms of pneumonia on iv ertapenem s/p iv zosyn extensive bilateral pneumo-retroperitoneum. seen on CT scan and serial CXR Case discussed with Dr. Rivera, supervisor assembling personnel records clerk,re: pneumomediastium and subcutaneous emphysema. Pt has no pneumothorax or severe respiratory distress to warrant any further testing or intervention. due to perforated diverticulitis Probable hepatocellular disease (or cirrhosis) - normal liver function test - reviewedUS gallbladder and hepatitis (ABC) profile; History of EtOH use without dependence - watch for s/s of withdraw, although patient states she has gone long periods of time without EtOH use and no problems in past. on CICO protocol. disposition: stable and may transfer to [facility]. surgery to advance diet. VS, I&O, 24H, Fishbone Vital Signs/I&O Vital Signs Date Time Temp Pulse Resp B/P (MAP) Pulse Ox O2 Delivery O2 Flow Rate FiO2 03/03/19 05:41 18 03/03/19 04:00 97.1 85 150/88 (108) 99 03/03/19 02:00 Nasal Cannula 2.0 I&O- Last 24 Hours up to 6 AM 03/03/19 06:00 Intake Total 830 ml Output Total 440 ml Balance 390 ml Laboratory Data 24H LABS Laboratory Tests 2 03/02/19 16:36: Immature Granulocyte % (Auto) , Nucleated Red Blood Cells % (auto) 0.0, Neutrophils 73, Lymphocytes (Manual) 16, Monocytes (Manual) 4, Eosinophils (Manual) 3, Promyelocytes 1H, Atypical Lymphocytes 3, Platelet Estimate NORMAL, Clumped Platelets SMALL AMT, Red Blood Cell Morphology NORMAL, Erythrocyte Sedimentation Rate 89H, Lactic Acid Level 0.9, C-Reactive Protein, Quantitative 13.80H 03/03/19 04:31: Nucleated Red Blood Cells % (auto) 0.0, Anion Gap 4L, Glomerular Filtration Rate > 60.0, Blood Urea Nitrogen 5L, Creatinine 0.44L, Sodium Level 140, Potassium Level 3.3L, Chloride Level 104, Carbon Dioxide Level 32, Calcium Level 7.5L CBC/BMP Laboratory Tests 03/02/19 16:36 Red Blood Count 4.04, Mean Corpuscular Volume 87.4, Mean Corpuscular Hemoglobin 29.0, Mean Corpuscular Hemoglobin Concent 33.1, Red Cell Distribution Width 14.1 03/03/19 04:31 Red Blood Count 3.74 L, Mean Corpuscular Volume 89.8, Mean Corpuscular Hemoglobin 29.9, Mean Corpuscular Hemoglobin Concent 33.3, Red Cell Distribution Width 14.4, Calcium Level 7.5 L Microbiology Microbiology 03/02/19 Blood Culture, Received Pending 03/02/19 Blood Culture, Received Pending 02/24/19 Blood Culture - Final, Complete NO GROWTH AFTER 5 DAYS 02/25/19 Anaerobic Culture - Final, Complete Bacteroides Ovatus/Thetaiotaom 02/25/19 Gram Stain - Final, Complete 02/25/19 Abscess Culture - Final, Complete Escherichia Coli#2 Streptococcus Anginosus Grp NANCY BARBA MD Mar 03, 2019 06:23
[2019-03-03] MEDS: SLF 3 ML SYR IV SCH ×2 (13:53→20:29)
[2019-03-03] MEDS: KETOROLAC 30 MG/ML VIAL (J1885) IV PRN ×2 (17:42→23:23)
[2019-03-03] MEDS: ERTAPENEM SODIUM 1 GM in NS MINI-BAG PLUS 50 ML IV SCH (17:48)
[2019-03-03] MEDS: FOLIC ACID 1 MG in NS 50 ML IV SCH (20:28)
[2019-03-04] MEDS: MORPHINE 4 MG/ML 1ML VIAL/SYRINGE (J2270) IV PRN ×2 (01:35→05:20)
[2019-03-04 04:00] VITALS: BP 165/89
[2019-03-04 05:58] LABS: HEMATOCRIT 36.3 % (36.0-47.0); HEMOGLOBIN 12.1 g/dl (12.0-15.5); MEAN CORPUSCULAR HEMOGLOBIN 30.1 pg (27.0-33.0); MEAN CORPUSCULAR HGB CONC 33.3 g/dl (32.0-36.5); MEAN CORPUSCULAR VOLUME 90.3 fl (80.0-96.0); PLATELET COUNT, AUTOMATED 385 10^3/uL (150-450); RED BLOOD COUNT 4.02 10^6/uL (4.00-5.40); WHITE BLOOD COUNT 13.9 10^3/uL (4.0-10.0)
[2019-03-04 06:23] LABS: BLOOD UREA NITROGEN 4 MG/DL (7-18); CALCIUM LEVEL 8.5 MG/DL (8.8-10.2); CARBON DIOXIDE LEVEL 31 MEQ/L (21-32); CHLORIDE LEVEL 104 MEQ/L (98-107); CREATININE FOR GFR 0.53 MG/DL (0.55-1.30); GLOMERULAR FILTRATION RATE > 60.0 (>45); GLUCOSE, FASTING 101 MG/DL (70-100); POTASSIUM SERUM 3.6 MEQ/L (3.5-5.1); SODIUM LEVEL 140 MEQ/L (136-145)
[2019-03-04 08:00] VITALS: BP 179/92
[2019-03-04] MEDS ORDERED: MORPHINE 4 MG/ML 1ML VIAL/SYRINGE (J2270) IV ONE (08:15)
[2019-03-04] MEDS ORDERED: NORCO, ANEXSIA 5/325MG TABLET (HYDROcodone/ACETAMINOPHEN) PO ONE (08:15)
[2019-03-04] MEDS: THIAMINE HCL 200 MG/2 ML VIAL (J3411) IV SCH (08:48)
[2019-03-04] MEDS: ALVIMOPAN 12 MG CAPSULE (ENTEREG) PO SCH ×2 (08:48→21:03)
[2019-03-04] MEDS: SENOKOT S TAB PO SCH ×2 (08:48→21:03)
[2019-03-04] MEDS: PANTOPRAZOLE 40MG INJ (PROTONIX) (C9113) IV SCH (08:48)
[2019-03-04] MEDS: ENOXAPARIN 40 MG/0.4 ML SYRINGE (J1650) SC SCH (08:49)
[2019-03-04] MEDS: SLF 3 ML SYR IV SCH ×3 (08:50→21:04)
--- NOTE | 2019-03-04 09:07 | IPNPDOC ---
Text Note Date of Service The patient was seen on 03/04/19. NOTE No acute events over the weekend. She is tolerating soft diet without any nausea or emesis and she has air and stool in the bag. No complaints of fevers, chills, or cough. She has a little lower abd pain but it is tolerable. VSSAF currently Drain - serosanguinous NAD abd - soft, less distended, no rebound, TTP appropriate, dressings c/d/i labs - below A) 63y/o female with complicated diverticulitis with free air and an abscess s/p IR drainage no prior colonoscopy s/p extended left hemicolectomy with end transverse colostomy due to perforated sigmoid and necrotic descending colon P) reg diet abx monitor output ostomy teaching ambulate in the halls remove left side drain plan on dc once she is comfortable with the ostomy, and when her wbc improves Steve Hernandez DO VS,Jony, I+O VS, Fishzoilae, I+O Laboratory Tests 03/04/19 05:16 Red Blood Count 4.02, Mean Corpuscular Volume 90.3, Mean Corpuscular Hemoglobin 30.1, Mean Corpuscular Hemoglobin Concent 33.3, Red Cell Distribution Width 14.2, Calcium Level 8.5 L Vital Signs Date Time Temp Pulse Resp B/P (MAP) Pulse Ox O2 Delivery O2 Flow Rate FiO2 03/04/19 08:49 20 03/04/19 08:00 99.8 89 179/92 (121) 93 03/03/19 02:00 Nasal Cannula 2.0 I&O- Last 24 Hours up to 6 AM 03/04/19 06:00 Intake Total 980 ml Output Total 2780 ml Balance -1800 ml MARCOS HERNANDEZ DO Mar 04, 2019 09:07
[2019-03-04 09:08] VITALS: BP 142/80
[2019-03-04 11:46] VITALS: BP 152/88
--- NOTE | 2019-03-04 14:01 | IPNPDOC ---
Date Seen The patient was seen on 03/04/19. Progress Note Subjective: Tolerating oral diet, but still c/o abd pain 5/10 and requesting pain meds. afebrile no chills. slight increased white count. Objective: physical examination: Vital signs: pls see below General: pleasant, NAD AAOx3 anicteric no jaundice. subcutaneous emphysema noted. HEENT: moist mucus membranes Heart: S1S2 RRR Lungs: diminished, bibasilar crackles no W/R/R Abdomen :soft left colostomy with stool bloody drain. EXT: no edema, venodyne boots laboratory data,imaging studies, microbiology: pls see below CT abd/pelvis: Severe diverticulitis with two large pericolonic abscesses adjacent to the sigmoid colon as described. There is marked pneumoretroperitoneum. There are findings compatible with hepatic cirrhosis. No hepatic masses. Bilateral renal parapelvic cysts. A/P:63 yo female with lower abdomen pain, N,V and diarrhea worse over past 1 week. Pateint states since september 2018, she has lost 25-30# because of nausea, unable to tolerate smell or taste of food. She states in November, she had first episode of diverticulitis and treated with 14 days of 2 antibiotics (presumed flagyl,levaquin). States abdomen pain never subsided and was intermittent on/off since then. Did not get colonoscopy. She states 02/16/19 pain worsened in intensity and severity and became sharp constant and associated with N,V,D. she has had fever and chills x4 days. patient and daughters (2) states worried and afraid that she will end up similar to her father who from complications of colon resection with colostomy and undiagnosed gallbladder infection. Perforated diverticular abscesses with necrotic bowel Surgery consulted (dr Hernandez) blood cultures noted s/p zosyn IV which was discontinued on 02/27/19 IVF, on IV ertapenem. s/p IR Ct guided drainage placement 02/25/19 02/27/19 s/p ex lap, abd washout, and left colostomy defer to surgery for diet advancement. Sepsis due to diverticular abscess, perforation Surgery consulted (dr Hernandez) blood cultures noted s/p zosyn IV which was discontinued on 02/27/19 IVF, on IV ertapenem. s/p IR Ct guided drainage placement 02/25/19 02/27/19 s/p ex lap, abd washout, and left colostomy defer to surgery for diet advancement. Left basilar infiltrate/atelectasis, right base opacity no symptoms of pneumonia on iv ertapenem s/p iv zosyn extensive bilateral pneumo-retroperitoneum. seen on CT scan and serial CXR Case discussed with Dr. 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 Pt has no pneumothorax or severe respiratory distress to warrant any further testing or intervention. due to perforated diverticulitis Probable hepatocellular disease (or cirrhosis) - normal liver function test - reviewedUS gallbladder and hepatitis (ABC) profile; History of EtOH use without dependence - watch for s/s of withdraw, although patient states she has gone long periods of time without EtOH use and no problems in past. on CIRI protocol. disposition: stable and may transfer to [facility]. surgery to advance diet. VS, I&O, 24H, Fishbone Vital Signs/I&O Vital Signs Date Time Temp Pulse Resp B/P (MAP) Pulse Ox O2 Delivery O2 Flow Rate FiO2 03/04/19 05:20 18 03/04/19 04:00 98.4 85 165/89 (114) 94 03/03/19 02:00 Nasal Cannula 2.0 I&O- Last 24 Hours up to 6 AM0 03/04/19 06:00 Intake Total 860 ml Output Total 2280 ml Balance -1420 ml Laboratory Data 24H LABS Laboratory Tests 2 03/04/19 03:31: Urine Color YELLOW, Urine Appearance CLEAR, Urine pH 7.0, Urine Specific [place] 1.006, Urine Protein NEGATIVE, Urine Glucose (UA) NEGATIVE, Urine Ketones NEGATIVE, Urine Blood NEGATIVE, Urine Nitrite NEGATIVE, Urine Bilirubin NEGATIVE, Urine Urobilinogen 0.2, Urine Leukocyte Esterase NEGATIVE, Urine WBC (Auto) 0, Urine RBC (Auto) 2, Urine Hyaline Casts (Auto) 0, Urine Bacteria (Auto) NEGATIVE, Urine Squamous Epithelial Cells 1, Urine Mucus (Auto) SMALL, Urine Sperm (Auto) 03/04/19 05:16: Nucleated Red Blood Cells % (auto) 0.0 CBC/BMP Laboratory Tests 03/04/19 05:16 Red Blood Count 4.02, Mean Corpuscular Volume 90.3, Mean Corpuscular Hemoglobin 30.1, Mean Corpuscular Hemoglobin Concent 33.3, Red Cell Distribution Width 14.2 Microbiology Microbiology 03/02/19 Blood Culture - Preliminary, Resulted No growth after 24 hours . All specim... 03/02/19 Blood Culture - Preliminary, Resulted No growth after 24 hours . All specim... 02/24/19 Blood Culture - Final, Complete NO GROWTH AFTER 5 DAYS 02/25/19 Anaerobic Culture - Final, Complete Bacteroides Ovatus/Thetaiotaom 02/25/19 Gram Stain - Final, Complete 02/25/19 Abscess Culture - Final, Complete Escherichia Coli#2 Streptococcus Anginosus Grp NANCY BARBA MD Mar 04, 2019 06:09
[2019-03-04] MEDS: NORCO, ANEXSIA 5/325MG TABLET (HYDROcodone/ACETAMINOPHEN) PO PRN ×2 (14:26→19:59)
[2019-03-04 15:51] VITALS: BP 138/90
[2019-03-04] MEDS: ERTAPENEM SODIUM 1 GM in NS MINI-BAG PLUS 50 ML IV SCH (16:52)
[2019-03-04 20:00] VITALS: BP 160/85
[2019-03-04] MEDS: FOLIC ACID 1 MG in NS 50 ML IV SCH (21:03)
[2019-03-05] VITALS (7 sets, daily range): BP systolic 149–178; BP diastolic 80–96
[2019-03-05] MEDS: NORCO, ANEXSIA 5/325MG TABLET (HYDROcodone/ACETAMINOPHEN) PO PRN ×7 (00:05→21:50)
[2019-03-05 05:34] LABS: HEMATOCRIT 35.5 % (36.0-47.0); HEMOGLOBIN 11.6 g/dl (12.0-15.5); MEAN CORPUSCULAR HEMOGLOBIN 29.4 pg (27.0-33.0); MEAN CORPUSCULAR HGB CONC 32.7 g/dl (32.0-36.5); MEAN CORPUSCULAR VOLUME 89.9 fl (80.0-96.0); PLATELET COUNT, AUTOMATED 365 10^3/uL (150-450); RED BLOOD COUNT 3.95 10^6/uL (4.00-5.40); WHITE BLOOD COUNT 14.5 10^3/uL (4.0-10.0)
[2019-03-05] MEDS: SLF 3 ML SYR IV SCH ×3 (05:46→20:47)
[2019-03-05 06:03] LABS: BLOOD UREA NITROGEN 4 MG/DL (7-18); CARBON DIOXIDE LEVEL 29 MEQ/L (21-32); CHLORIDE LEVEL 104 MEQ/L (98-107); CREATININE FOR GFR 0.39 MG/DL (0.55-1.30); GLOMERULAR FILTRATION RATE > 60.0 (>45); GLUCOSE, FASTING 103 MG/DL (70-100); POTASSIUM SERUM 3.8 MEQ/L (3.5-5.1); SODIUM LEVEL 139 MEQ/L (136-145)
--- NOTE | 2019-03-05 08:35 | IPNPDOC ---
Text Note Date of Service The patient was seen on 03/05/19. NOTE No acute events overnight. Denies nausea, emesis, fevers, or cough. She was able to walk in the halls and do some stairs. She passed PT. The ostomy is still working, but she has not changed it or emptied it herself. According to nursing she is not putting any effort into working with it. When I mentioned her lack of effort this am she looked away from me and stopped talking as well. VSSAF currently Drain - serosanguinous NAD abd - soft, less distended, no rebound, TTP appropriate, dressings c/d/i, left drain is out labs - pending A) 63y/o female with complicated diverticulitis with free air and an abscess s/p IR drainage no prior colonoscopy s/p extended left hemicolectomy with end transverse colostomy due to perforated sigmoid and necrotic descending colon P) reg diet abx monitor output ostomy teaching ambulate in the halls plan on dc once she is comfortable with the ostomy, and when her wbc improves if wbc improves today then we will remove the right drain also Steve Hernandez DO Jony EVANGELISTA, I+O Jony EVANGELISTA I+O Laboratory Tests 03/05/19 05:17 Red Blood Count 3.95 L, Mean Corpuscular Volume 89.9, Mean Corpuscular Hemoglobin 29.4, Mean Corpuscular Hemoglobin Concent 32.7, Red Cell Distribution Width 14.1, Calcium Level 8.0 L Vital Signs Date Time Temp Pulse Resp B/P (MAP) Pulse Ox O2 Delivery O2 Flow Rate FiO2 03/05/19 04:34 18 03/05/19 04:00 97.5 91 166/85 (112) 96 03/03/19 02:00 Nasal Cannula 2.0 I&O- Last 24 Hours up to 6 AM 03/05/19 06:00 Intake Total 810 ml Output Total 1350 ml Balance -540 ml MARCOS HERNANDEZ DO Mar 05, 2019 08:35
[2019-03-05 08:47] LABS: HEMATOCRIT 36.1 % (36.0-47.0); MEAN CORPUSCULAR HEMOGLOBIN 29.9 pg (27.0-33.0); MEAN CORPUSCULAR HGB CONC 33.2 g/dl (32.0-36.5); PLATELET COUNT, AUTOMATED 381 10^3/uL (150-450); RED BLOOD COUNT 4.01 10^6/uL (4.00-5.40)
[2019-03-05] MEDS: THIAMINE 100 MG TAB PO SCH (09:34)
[2019-03-05] MEDS: ALVIMOPAN 12 MG CAPSULE (ENTEREG) PO SCH ×2 (09:35→20:47)
[2019-03-05] MEDS: FOLIC ACID 1 MG TAB PO SCH (09:35)
[2019-03-05] MEDS: SENOKOT S TAB PO SCH ×2 (09:36→20:47)
[2019-03-05] MEDS: ENOXAPARIN 40 MG/0.4 ML SYRINGE (J1650) SC SCH (09:36)
[2019-03-05] MEDS: OMEPRAZOLE 20 MG CAP PO SCH (09:36)
[2019-03-05] MEDS: ERTAPENEM SODIUM 1 GM in NS MINI-BAG PLUS 50 ML IV SCH (17:03)
--- NOTE | 2019-03-05 19:23 | IPNPDOC ---
Date Seen The patient was seen on 03/05/19. Progress Note SUBJECTIVE: Patient reports abdominal discomfort but not significantly bothering her at that time. Ostomy bag education attempted but reportedly has not been paying much attention. Maria T to come back today to re-educate. No acute events reported overnight. WBC increased to 16 from 14 yesterday. OBJECTIVE PHYSICAL EXAMINATION: VITAL SIGNS: Please see below. General: No acute distress, Alert Eyes: Normal sclera, EOMI, PACO HENT: Atraumatic, neck supple, moist mucous membranes Cardiovascular: Normal rate, normal rhythm. Pulmonary: Clear to auscultation b/l GI: Soft, mildly tender perisurgical sites, ostomy bag clean. Dressing clean and dry. Skin: Warm and dry Neuro: CN grossly intact. No focal deficits. Strengths equal b/l. Psych: oriented x 3 LABORATORY DATA, IMAGING STUDIES, MICROBIOLOGY: Please see below. ASSESSMENT AND PLAN: 1. Complicated diverticulitis with perforation - s/p IR drainage of abscess and L. hemicolectomy with end traverse colostomy. - Perforated sigmoid and necrotic descending colon. - Surgery following. - Attempting to educate patients regarding ostomy care. - Likely can be discharged in the next 24-78 hours. - Previously on Zosyn, changed to Ertapenem. - c/w Abx for now given leukocytosis. 2. L. basilar infiltrate - No symptoms of PNA however. - c/w Ertapenem for now. 3. b/l Pneumo-retroperitoneum - Dr. Santos had discussed with pulm, does not warrant intervention at this time given no PTX or severe respiratory distress. 4. hx Alcohol use - Observe for withdraw. VS, I&O, 24H, Fishbone Vital Signs/I&O Vital Signs Date Time Temp Pulse Resp B/P (MAP) Pulse Ox O2 Delivery O2 Flow Rate FiO2 03/05/19 17:38 14 03/05/19 17:24 98.4 99 158/86 (110) 95 03/03/19 02:00 Nasal Cannula 2.0 I&O- Last 24 Hours up to 6 AM 03/05/19 06:00 Intake Total 810 ml Output Total 1350 ml Balance -540 ml Laboratory Data 24H LABS Laboratory Tests 2 03/05/19 05:17: Nucleated Red Blood Cells % (auto) 0.0, Anion Gap 6L, Glomerular Filtration Rate > 60.0, Blood Urea Nitrogen 4L, Creatinine 0.39L, Sodium Level 139, Potassium Level 3.8, Chloride Level 104, Carbon Dioxide Level 29, Calcium Level 8.0L 03/05/19 08:35: Nucleated Red Blood Cells % (auto) 0.0 CBC/BMP Laboratory Tests 03/05/19 05:17 Red Blood Count 3.95 L, Mean Corpuscular Volume 89.9, Mean Corpuscular Hemoglobin 29.4, Mean Corpuscular Hemoglobin Concent 32.7, Red Cell Distribution Width 14.1, Calcium Level 8.0 L 03/05/19 08:35 Red Blood Count 4.01, Mean Corpuscular Volume 90.0, Mean Corpuscular Hemoglobin 29.9, Mean Corpuscular Hemoglobin Concent 33.2, Red Cell Distribution Width 14.1 Microbiology Microbiology 03/02/19 Blood Culture - Preliminary, Resulted No Growth after 72 hours. All specime... 03/02/19 Blood Culture - Preliminary, Resulted No Growth after 72 hours. All specime... 02/24/19 Blood Culture - Final, Complete NO GROWTH AFTER 5 DAYS 02/25/19 Anaerobic Culture - Final, Complete Bacteroides Ovatus/Thetaiotaom 02/25/19 Gram Stain - Final, Complete 02/25/19 Abscess Culture - Final, Complete Escherichia Coli#2 Streptococcus Anginosus Grp JANICE PONCE MD Mar 05, 2019 19:23
[2019-03-06 02:00] VITALS: BP 152/79
[2019-03-06] MEDS: NORCO, ANEXSIA 5/325MG TABLET (HYDROcodone/ACETAMINOPHEN) PO PRN ×5 (02:51→20:42)
[2019-03-06 06:00] VITALS: BP 149/82
[2019-03-06 06:09] LABS: HEMOGLOBIN 11.8 g/dl (12.0-15.5); MEAN CORPUSCULAR HEMOGLOBIN 28.6 pg (27.0-33.0); MEAN CORPUSCULAR HGB CONC 32.8 g/dl (32.0-36.5); MEAN CORPUSCULAR VOLUME 87.2 fl (80.0-96.0); PLATELET COUNT, AUTOMATED 425 10^3/uL (150-450); RED BLOOD COUNT 4.13 10^6/uL (4.00-5.40); WHITE BLOOD COUNT 15.4 10^3/uL (4.0-10.0)
[2019-03-06] MEDS: SLF 3 ML SYR IV SCH ×3 (06:14→22:45)
[2019-03-06 06:37] LABS: BLOOD UREA NITROGEN 5 MG/DL (7-18); CALCIUM LEVEL 8.3 MG/DL (8.8-10.2); CARBON DIOXIDE LEVEL 28 MEQ/L (21-32); CHLORIDE LEVEL 102 MEQ/L (98-107); CREATININE FOR GFR 0.47 MG/DL (0.55-1.30); GLOMERULAR FILTRATION RATE > 60.0 (>45); GLUCOSE, FASTING 86 MG/DL (70-100); POTASSIUM SERUM 3.9 MEQ/L (3.5-5.1); SODIUM LEVEL 138 MEQ/L (136-145)
[2019-03-06] MEDS: SENOKOT S TAB PO SCH ×2 (08:00→20:41)
[2019-03-06] MEDS: THIAMINE 100 MG TAB PO SCH (08:00)
[2019-03-06] MEDS: OMEPRAZOLE 20 MG CAP PO SCH (08:00)
[2019-03-06] MEDS: ENOXAPARIN 40 MG/0.4 ML SYRINGE (J1650) SC SCH (08:00)
[2019-03-06] MEDS: ALVIMOPAN 12 MG CAPSULE (ENTEREG) PO SCH ×2 (08:00→20:42)
[2019-03-06] MEDS: FOLIC ACID 1 MG TAB PO SCH (08:00)
[2019-03-06 10:00] VITALS: BP 150/82
--- NOTE | 2019-03-06 11:06 | IPNPDOC ---
Text Note Date of Service The patient was seen on 03/06/19. NOTE No acute events overnight. Denies nausea, emesis, fevers, or cough. The ostomy is still working, and she is working better with it. VSSAF currently Drain - serosanguinous NAD abd - soft, less distended, no rebound, TTP appropriate, dressings c/d/i, left drain is out labs - pending A) 63y/o female with complicated diverticulitis with free air and an abscess s/p IR drainage no prior colonoscopy s/p extended left hemicolectomy with end transverse colostomy due to perforated sigmoid and necrotic descending colon P) reg diet abx monitor output ostomy teaching ambulate in the halls plan on dc once she is comfortable with the ostomy, and when her wbc improves will remove the other drain today Steve Hernandez DO VS,Eileene, I+O VS, Fishbone, I+O Laboratory Tests 03/06/19 05:53 Red Blood Count 4.13, Mean Corpuscular Volume 87.2, Mean Corpuscular Hemoglobin 28.6, Mean Corpuscular Hemoglobin Concent 32.8, Red Cell Distribution Width 14.0, Calcium Level 8.3 L Vital Signs Date Time Temp Pulse Resp B/P (MAP) Pulse Ox O2 Delivery O2 Flow Rate FiO2 03/06/19 10:00 97.0 101 19 150/82 (104) 96 03/03/19 02:00 Nasal Cannula 2.0 I&O- Last 24 Hours up to 6 AM 03/06/19 06:00 Intake Total 1190 ml Output Total 620 ml Balance 570 ml MARCOS HERNANDEZ DO Mar 06, 2019 11:06
[2019-03-06 14:00] VITALS: BP 130/59
[2019-03-06] MEDS: ERTAPENEM SODIUM 1 GM in NS MINI-BAG PLUS 50 ML IV SCH (16:09)
[2019-03-06] MEDS ORDERED: MAGNESIUM CITRATE 300 ML BTL PO ONE (17:00)
[2019-03-06 18:00] VITALS: BP 120/72
--- NOTE | 2019-03-06 19:58 | IPNPDOC ---
Date Seen The patient was seen on 03/06/19. Progress Note SUBJECTIVE: Patient denies any complaints today. Afebrile overnight. White count still elevated but slightly decreased. OBJECTIVE PHYSICAL EXAMINATION: VITAL SIGNS: Please see below. General: No acute distress, Alert Eyes: Normal sclera, EOMI, PACO HENT: Atraumatic, neck supple, moist mucous membranes Cardiovascular: Normal rate, normal rhythm. Pulmonary: Clear to auscultation b/l GI: Soft, mildly tender perisurgical sites, ostomy bag clean. Dressing clean and dry. Skin: Warm and dry Neuro: CN grossly intact. No focal deficits. Strengths equal b/l. Psych: oriented x 3 LABORATORY DATA, IMAGING STUDIES, MICROBIOLOGY: Please see below. ASSESSMENT AND PLAN: 1. Complicated diverticulitis with perforation - s/p IR drainage of abscess and L. hemicolectomy with end traverse colostomy. - Perforated sigmoid and necrotic descending colon. - Surgery following. To d/c once patient comfortable with ostomy and wbc improves. - Previously on Zosyn, changed to Ertapenem. - c/w Abx for now given leukocytosis. 2. L. basilar infiltrate - No symptoms of PNA however. - c/w Ertapenem for now. 3. b/l Pneumo-retroperitoneum - Dr. Santos had discussed with pulm, does not warrant intervention at this time given no PTX or severe respiratory distress. 4. hx Alcohol use - Observe for withdraw. VS, I&O, 24H, Fishbone Vital Signs/I&O Vital Signs Date Time Temp Pulse Resp B/P (MAP) Pulse Ox O2 Delivery O2 Flow Rate FiO2 03/06/19 18:00 99.6 101 18 120/72 (88) 96 03/03/19 02:00 Nasal Cannula 2.0 I&O- Last 24 Hours up to 6 AM 03/06/19 06:00 Intake Total 1190 ml Output Total 620 ml Balance 570 ml Laboratory Data 24H LABS Laboratory Tests 2 03/06/19 05:53: Nucleated Red Blood Cells % (auto) 0.0, Anion Gap 8, Glomerular Filtration Rate > 60.0, Blood Urea Nitrogen 5L, Creatinine 0.47L, Sodium Level 138, Potassium Level 3.9, Chloride Level 102, Carbon Dioxide Level 28, Calcium Level 8.3L CBC/BMP Laboratory Tests 03/06/19 05:53 Red Blood Count 4.13, Mean Corpuscular Volume 87.2, Mean Corpuscular Hemoglobin 28.6, Mean Corpuscular Hemoglobin Concent 32.8, Red Cell Distribution Width 14.0, Calcium Level 8.3 L Microbiology Microbiology 03/02/19 Blood Culture - Preliminary, Resulted No Growth after 72 hours. All specime... 03/02/19 Blood Culture - Preliminary, Resulted No Growth after 72 hours. All specime... 02/24/19 Blood Culture - Final, Complete NO GROWTH AFTER 5 DAYS 02/25/19 Anaerobic Culture - Final, Complete Bacteroides Ovatus/Thetaiotaom 02/25/19 Gram Stain - Final, Complete 02/25/19 Abscess Culture - Final, Complete Escherichia Coli#2 Streptococcus Anginosus Grp JANICE PONCE MD Mar 06, 2019 19:58
[2019-03-06 22:00] VITALS: BP 126/70
[2019-03-07 02:00] VITALS: BP 121/67
[2019-03-07] MEDS: NORCO, ANEXSIA 5/325MG TABLET (HYDROcodone/ACETAMINOPHEN) PO PRN ×3 (03:05→16:14)
[2019-03-07 06:00] VITALS: BP 131/64
[2019-03-07] MEDS: SLF 3 ML SYR IV SCH ×3 (06:08→21:48)
[2019-03-07 06:41] LABS: HEMATOCRIT 34.8 % (36.0-47.0); HEMOGLOBIN 11.5 g/dl (12.0-15.5); MEAN CORPUSCULAR HEMOGLOBIN 29.6 pg (27.0-33.0); MEAN CORPUSCULAR VOLUME 89.7 fl (80.0-96.0); PLATELET COUNT, AUTOMATED 454 10^3/uL (150-450); RED BLOOD COUNT 3.88 10^6/uL (4.00-5.40); WHITE BLOOD COUNT 12.2 10^3/uL (4.0-10.0)
[2019-03-07 07:00] LABS: BLOOD UREA NITROGEN 6 MG/DL (7-18); CALCIUM LEVEL 8.3 MG/DL (8.8-10.2); CARBON DIOXIDE LEVEL 27 MEQ/L (21-32); CHLORIDE LEVEL 104 MEQ/L (98-107); CREATININE FOR GFR 0.47 MG/DL (0.55-1.30); GLOMERULAR FILTRATION RATE > 60.0 (>45); GLUCOSE, FASTING 93 MG/DL (70-100); POTASSIUM SERUM 3.8 MEQ/L (3.5-5.1); SODIUM LEVEL 139 MEQ/L (136-145)
[2019-03-07] MEDS: ALVIMOPAN 12 MG CAPSULE (ENTEREG) PO SCH ×2 (08:24→20:55)
[2019-03-07] MEDS: FOLIC ACID 1 MG TAB PO SCH (08:24)
[2019-03-07] MEDS: THIAMINE 100 MG TAB PO SCH (08:24)
[2019-03-07] MEDS: ENOXAPARIN 40 MG/0.4 ML SYRINGE (J1650) SC SCH (08:24)
[2019-03-07] MEDS: OMEPRAZOLE 20 MG CAP PO SCH (08:24)
[2019-03-07] MEDS: SENOKOT S TAB PO SCH ×2 (08:24→20:55)
--- NOTE | 2019-03-07 08:37 | IPNPDOC ---
Text Note Date of Service The patient was seen on 03/07/19. NOTE No acute events overnight. Denies nausea, emesis, fevers, or cough. The ostomy is still working, and she is working better with it. The plan is to work with nursing one more day, and then plan for discharge home tomorrow. VSSAF NAD abd - soft, less distended, no rebound, TTP appropriate, incision c/d/i labs - below A) 63y/o female with complicated diverticulitis with free air and an abscess s/p IR drainage no prior colonoscopy s/p extended left hemicolectomy with end transverse colostomy due to perforated sigmoid and necrotic descending colon P) reg diet abx monitor output ostomy teaching ambulate in the halls stable for d/c VS,Fishbone, I+O VS, Fishbone, I+O Laboratory Tests 03/07/19 05:56 Red Blood Count 3.88 L, Mean Corpuscular Volume 89.7, Mean Corpuscular Hemoglobin 29.6, Mean Corpuscular Hemoglobin Concent 33.0, Red Cell Distribution Width 14.2, Calcium Level 8.3 L Vital Signs Date Time Temp Pulse Resp B/P (MAP) Pulse Ox O2 Delivery O2 Flow Rate FiO2 03/07/19 08:25 18 03/07/19 06:00 97.8 95 131/64 (86) 96 03/03/19 02:00 Nasal Cannula 2.0 I&O- Last 24 Hours up to 6 AM 03/07/19 06:00 Intake Total 1146 ml Output Total 420 ml Balance 726 ml MARCOS SANTA DO Mar 07, 2019 08:37
[2019-03-07 10:00] VITALS: BP 142/73
[2019-03-07 14:00] VITALS: BP 145/85
--- NOTE | 2019-03-07 15:30 | IPNPDOC ---
Date Seen The patient was seen on 03/07/19. Progress Note SUBJECTIVE: Patient denies any complaints. WBC trending down. Patient more cooperative with ostomy management. OBJECTIVE PHYSICAL EXAMINATION: VITAL SIGNS: Please see below. General: No acute distress, Alert Eyes: Normal sclera, EOMI, PACO HENT: Atraumatic, neck supple, moist mucous membranes Cardiovascular: Normal rate, normal rhythm. Pulmonary: Clear to auscultation b/l GI: Soft, mildly tender perisurgical sites, ostomy bag clean. Dressing clean and dry. Skin: Warm and dry Neuro: CN grossly intact. No focal deficits. Strengths equal b/l. Psych: oriented x 3 LABORATORY DATA, IMAGING STUDIES, MICROBIOLOGY: Please see below. ASSESSMENT AND PLAN: 1. Complicated diverticulitis with perforation - s/p IR drainage of abscess and L. hemicolectomy with end traverse colostomy. - Perforated sigmoid and necrotic descending colon. - Surgery following. To d/c once patient comfortable with ostomy and wbc improves. - Previously on Zosyn, changed to Ertapenem. - c/w Abx for now given leukocytosis. Transition to PO prior to discharge. - Tentatively planning discharge for tomorrow. 2. L. basilar infiltrate - No symptoms of PNA however. - c/w Ertapenem for now. 3. b/l Pneumo-retroperitoneum - Dr. Santos had discussed with pulm, does not warrant intervention at this time given no PTX or severe respiratory distress. 4. hx Alcohol use - Observe for withdraw. VS, I&O, 24H, Fishbone Vital Signs/I&O Vital Signs Date Time Temp Pulse Resp B/P (MAP) Pulse Ox O2 Delivery O2 Flow Rate FiO2 03/07/19 14:00 98.6 114 20 145/85 (105) 94 03/03/19 02:00 Nasal Cannula 2.0 I&O- Last 24 Hours up to 6 AM 03/07/19 05:59 Intake Total 1146 ml Output Total 420 ml Balance 726 ml Laboratory Data 24H LABS Laboratory Tests 2 03/07/19 05:56: Nucleated Red Blood Cells % (auto) 0.0, Anion Gap 8, Glomerular Filtration Rate > 60.0, Blood Urea Nitrogen 6L, Creatinine 0.47L, Sodium Level 139, Potassium Level 3.8, Chloride Level 104, Carbon Dioxide Level 27, Calcium Level 8.3L CBC/BMP Laboratory Tests 03/07/19 05:56 Red Blood Count 3.88 L, Mean Corpuscular Volume 89.7, Mean Corpuscular Hemoglobin 29.6, Mean Corpuscular Hemoglobin Concent 33.0, Red Cell Distribution Width 14.2, Calcium Level 8.3 L Microbiology Microbiology 03/02/19 Blood Culture - Preliminary, Resulted No Growth after 72 hours. All specime... 03/02/19 Blood Culture - Preliminary, Resulted No Growth after 72 hours. All specime... 02/25/19 Anaerobic Culture - Final, Complete Bacteroides Ovatus/Thetaiotaom 02/25/19 Gram Stain - Final, Complete 02/25/19 Abscess Culture - Final, Complete Escherichia Coli#2 Streptococcus Anginosus Grp JANICE PONCE MD Mar 07, 2019 15:30
[2019-03-07] MEDS: ERTAPENEM SODIUM 1 GM in NS MINI-BAG PLUS 50 ML IV SCH (16:14)
[2019-03-07 18:00] VITALS: BP 135/64
[2019-03-07] MEDS: ACETAMINOPHEN 325 MG TAB PO PRN (20:55)
[2019-03-07 22:00] VITALS: BP 132/74
[2019-03-08 02:00] VITALS: BP 163/82
[2019-03-08] MEDS: NORCO, ANEXSIA 5/325MG TABLET (HYDROcodone/ACETAMINOPHEN) PO PRN ×4 (02:42→19:20)
[2019-03-08] MEDS: ACETAMINOPHEN 325 MG TAB PO PRN (03:41)
[2019-03-08 06:00] VITALS: BP 152/96
[2019-03-08 06:18] LABS: HEMATOCRIT 32.7 % (36.0-47.0); HEMOGLOBIN 10.7 g/dl (12.0-15.5); MEAN CORPUSCULAR HEMOGLOBIN 29.5 pg (27.0-33.0); MEAN CORPUSCULAR HGB CONC 32.7 g/dl (32.0-36.5); MEAN CORPUSCULAR VOLUME 90.1 fl (80.0-96.0); PLATELET COUNT, AUTOMATED 454 10^3/uL (150-450); RED BLOOD COUNT 3.63 10^6/uL (4.00-5.40); WHITE BLOOD COUNT 10.9 10^3/uL (4.0-10.0)
[2019-03-08] MEDS: SLF 3 ML SYR IV SCH ×3 (06:30→22:07)
[2019-03-08 06:38] LABS: BLOOD UREA NITROGEN 5 MG/DL (7-18); CALCIUM LEVEL 8.7 MG/DL (8.8-10.2); CARBON DIOXIDE LEVEL 26 MEQ/L (21-32); CHLORIDE LEVEL 108 MEQ/L (98-107); CREATININE FOR GFR 0.58 MG/DL (0.55-1.30); GLOMERULAR FILTRATION RATE > 60.0 (>45); GLUCOSE, FASTING 100 MG/DL (70-100); POTASSIUM SERUM 3.9 MEQ/L (3.5-5.1); SODIUM LEVEL 142 MEQ/L (136-145)
[2019-03-08] MEDS: ALVIMOPAN 12 MG CAPSULE (ENTEREG) PO SCH (07:47)
[2019-03-08] MEDS: FOLIC ACID 1 MG TAB PO SCH (07:47)
[2019-03-08] MEDS: OMEPRAZOLE 20 MG CAP PO SCH (07:51)
[2019-03-08] MEDS: THIAMINE 100 MG TAB PO SCH (07:52)
[2019-03-08] MEDS: SENOKOT S TAB PO SCH ×2 (07:52→21:35)
[2019-03-08] MEDS: ENOXAPARIN 40 MG/0.4 ML SYRINGE (J1650) SC SCH (07:52)
[2019-03-08 10:00] VITALS: BP 141/76
[2019-03-08 14:00] VITALS: BP 140/76
--- NOTE | 2019-03-08 15:47 | IPNPDOC ---
Date Seen The patient was seen on 03/08/19. Progress Note SUBJECTIVE: Patient's midline abdominal wound reportedly started to have serosanguinous drainage overnight. Wound appeared slightly more erythematous than before with more discomfort. She is worried about her wound but otherwise no other complaints. OBJECTIVE PHYSICAL EXAMINATION: VITAL SIGNS: Please see below. General: No acute distress, Alert Eyes: Normal sclera, EOMI, PACO HENT: Atraumatic, neck supple, moist mucous membranes Cardiovascular: Normal rate, normal rhythm. Pulmonary: Clear to auscultation b/l GI: Soft, mildly tender perisurgical sites, dressing partially soak with serosanguinous drainage, ostomy bag clean. Skin: Warm and dry Neuro: CN grossly intact. No focal deficits. Strengths equal b/l. Psych: oriented x 3 LABORATORY DATA, IMAGING STUDIES, MICROBIOLOGY: Please see below. ASSESSMENT AND PLAN: 1. Complicated diverticulitis with perforation - s/p IR drainage of abscess and L. hemicolectomy with end traverse colostomy. - Perforated sigmoid and necrotic descending colon. - Surgery following. To d/c once patient comfortable with ostomy and wbc improves. - Previously on Zosyn, changed to Ertapenem. - c/w Abx for now given leukocytosis. Transition to PO prior to discharge. - Surgical site with some ozzing from wound, to get evaluated by surgery. 2. L. basilar infiltrate - No symptoms of PNA however. - c/w Ertapenem for now. 3. b/l Pneumo-retroperitoneum - Dr. Santos had discussed with pulm, does not warrant intervention at this time given no PTX or severe respiratory distress. 4. hx Alcohol use - Observe for withdraw. VS, I&O, 24H, Fishbone Vital Signs/I&O Vital Signs Date Time Temp Pulse Resp B/P (MAP) Pulse Ox O2 Delivery O2 Flow Rate FiO2 03/08/19 14:00 96.6 110 18 140/76 (97) 96 03/03/19 02:00 Nasal Cannula 2.0 I&O- Last 24 Hours up to 6 AM 03/08/19 05:59 Intake Total 972 ml Output Total 0 ml Balance 972 ml Laboratory Data 24H LABS Laboratory Tests 2 03/08/19 05:25: Nucleated Red Blood Cells % (auto) 0.0, Anion Gap 8, Glomerular Filtration Rate > 60.0, Blood Urea Nitrogen 5L, Creatinine 0.58, Sodium Level 142, Potassium Level 3.9, Chloride Level 108H, Carbon Dioxide Level 26, Calcium Level 8.7L CBC/BMP Laboratory Tests 03/08/19 05:25 Red Blood Count 3.63 L, Mean Corpuscular Volume 90.1, Mean Corpuscular Hemoglobin 29.5, Mean Corpuscular Hemoglobin Concent 32.7, Red Cell Distribution Width 14.4, Calcium Level 8.7 L Microbiology Microbiology 03/02/19 Blood Culture - Final, Complete NO GROWTH AFTER 5 DAYS 03/02/19 Blood Culture - Final, Complete NO GROWTH AFTER 5 DAYS JANICE PONCE MD Mar 08, 2019 15:47
--- NOTE | 2019-03-08 16:52 | IPN ---
DATE: 03/08/2019 HISTORY: The patient is now postop day #9 from a partial colectomy for a perforated sigmoid diverticulum. The patient has been doing fairly well with ostomy teaching. She is on oral medications though I note that she remains on ertapenem still. She has been taking a regular diet. She was noted today to have some pinkish fluid draining from the lower portion of her midline incision. Vital signs: The patient has been afebrile over the past 24 hours. Pulse is has ranged from 88-110. Blood pressure is good and her room air saturation is normal. Intake and output shows that yesterday she had 1100 recorded in with no recorded output, though she did have 8 voids and 2 bowel movements noted. PHYSICAL EXAMINATION The patient is alert, lying quietly in the hospital bed. Heart exam shows a regular rate and rhythm. Her lungs are clear. The abdomen shows an ostomy in the left side of the abdomen which appears to be functioning well with some stool in the bag and this is clearly red and viable. The upper half of her midline incision above the umbilicus looks healthy and normal. There is a small spot within the umbilicus from which there has been some drainage of watery, bloody fluid. The upper portion of the lower part of her incision below the umbilicus clearly show signs of infection with redness surrounding the wound over a distance of approximately 7 to as much as 8 cm, probably 7 cm and extending out to a width of 4-5 cm total. There is some induration and tenderness in this area. The lower end of the wound is opened slightly and this appears to be healing well. LABORATORY STUDIES Today show a white count of 11, hemoglobin of 11, hematocrit of 33 and platelet count of 454,000. Chemistry profile shows a sodium of 142, potassium 3.9, chloride 108, CO2 of 26, BUN of 5, creatinine 0.6 and glucose of 100. IMPRESSION The patient has been doing well now day 9 from her emergency colectomy for perforation. She now appears to have an area of wound infection in the lower part of her wound. PLAN Three pradeep were removed from the lower part of her wound and the area was probed and a large amount of old bloody and purulent appearing fluid was released. I probed this with a Q-tip and then with my finger and this extends at least 4-5 cm into the subcutaneous tissues. This is probably down to the fascia and also extends superiorly beneath the wound at least another 5-6 cm. A culturette was obtained for culture and Gram stain. Her wound was evacuated of as much fluid as possible and then filled with a saline moistened gauze. The patient tolerated this very well. She will continue her ostomy teaching. We will begin three times daily dressing changes to this wound and see how her culture turns out. I am going to stop her ertapenem at this point and adjust other medications that she is not using.
[2019-03-08 18:00] VITALS: BP 142/78
[2019-03-08 22:00] VITALS: BP 138/64
[2019-03-09 02:00] VITALS: BP 138/76
[2019-03-09] MEDS: SLF 3 ML SYR IV SCH ×3 (05:58→22:15)
[2019-03-09 06:00] VITALS: BP 145/87
[2019-03-09 06:44] LABS: HEMATOCRIT 32.5 % (36.0-47.0); HEMOGLOBIN 10.4 g/dl (12.0-15.5); MEAN CORPUSCULAR HEMOGLOBIN 28.4 pg (27.0-33.0); MEAN CORPUSCULAR VOLUME 88.8 fl (80.0-96.0); PLATELET COUNT, AUTOMATED 461 10^3/uL (150-450); RED BLOOD COUNT 3.66 10^6/uL (4.00-5.40); WHITE BLOOD COUNT 10.5 10^3/uL (4.0-10.0)
[2019-03-09 06:58] LABS: BLOOD UREA NITROGEN 6 MG/DL (7-18); CALCIUM LEVEL 8.5 MG/DL (8.8-10.2); CARBON DIOXIDE LEVEL 28 MEQ/L (21-32); CHLORIDE LEVEL 110 MEQ/L (98-107); CREATININE FOR GFR 0.61 MG/DL (0.55-1.30); GLOMERULAR FILTRATION RATE > 60.0 (>45); GLUCOSE, FASTING 96 MG/DL (70-100); POTASSIUM SERUM 3.9 MEQ/L (3.5-5.1); SODIUM LEVEL 143 MEQ/L (136-145)
[2019-03-09] MEDS: FOLIC ACID 1 MG TAB PO SCH (08:45)
[2019-03-09] MEDS: THIAMINE 100 MG TAB PO SCH (08:45)
[2019-03-09] MEDS: OMEPRAZOLE 20 MG CAP PO SCH (08:45)
[2019-03-09] MEDS: ENOXAPARIN 40 MG/0.4 ML SYRINGE (J1650) SC SCH (08:45)
[2019-03-09] MEDS: SENOKOT S TAB PO SCH ×2 (08:45→20:50)
[2019-03-09] MEDS: NORCO, ANEXSIA 5/325MG TABLET (HYDROcodone/ACETAMINOPHEN) PO PRN ×2 (08:49→20:51)
[2019-03-09 10:00] VITALS: BP 128/72
--- NOTE | 2019-03-09 12:05 | IPNPDOC ---
Date Seen The patient was seen on 03/09/19. Progress Note SUBJECTIVE: Patient reported no further drainage from the site of her incision since last night. 3 pradeep were removed from lower part of abdomen by surgery yesterday. Wound was evacuated, no drainage noted this morning. No other particular complaints. OBJECTIVE PHYSICAL EXAMINATION: VITAL SIGNS: Please see below. General: No acute distress, Alert Eyes: Normal sclera, EOMI, PACO HENT: Atraumatic, neck supple, moist mucous membranes Cardiovascular: Normal rate, normal rhythm. Pulmonary: Clear to auscultation b/l GI: Soft, mildly tender perisurgical sites, midline incision wound clean and dry. Skin: Warm and dry Neuro: CN grossly intact. No focal deficits. Strengths equal b/l. Psych: oriented x 3 LABORATORY DATA, IMAGING STUDIES, MICROBIOLOGY: Please see below. ASSESSMENT AND PLAN: 1. Complicated diverticulitis with perforation - s/p IR drainage of abscess and L. hemicolectomy with end traverse colostomy. - Perforated sigmoid and necrotic descending colon. - Previously on Zosyn->Ertapenem, now off Abx. - c/w dressing changes and wound care per surgery assistance/recommendations. 2. L. basilar infiltrate - No symptoms of PNA however. - s/p Zosyn/ertapenem. 3. b/l Pneumo-retroperitoneum - Dr. Santos had discussed with pulm, does not warrant intervention at this time given no PTX or severe respiratory distress. 4. hx Alcohol use - No evidence of withdraw, outside window now. VS, I&O, 24H, Fishbone Vital Signs/I&O Vital Signs Date Time Temp Pulse Resp B/P (MAP) Pulse Ox O2 Delivery O2 Flow Rate FiO2 03/09/19 10:00 97.4 93 17 128/72 (90) 97 03/03/19 02:00 Nasal Cannula 2.0 I&O- Last 24 Hours up to 6 AM 03/09/19 06:00 Intake Total 1550 ml Output Total 0 ml Balance 1550 ml Laboratory Data 24H LABS Laboratory Tests 2 03/09/19 06:02: Nucleated Red Blood Cells % (auto) 0.0, Anion Gap 5L, Glomerular Filtration Rate > 60.0, Blood Urea Nitrogen 6L, Creatinine 0.61, Sodium Level 143, Potassium Lev el 3.9, Chloride Level 110H, Carbon Dioxide Level 28, Calcium Level 8.5L CBC/BMP Laboratory Tests 03/09/19 06:02 Red Blood Count 3.66 L, Mean Corpuscular Volume 88.8, Mean Corpuscular Hemoglobin 28.4, Mean Corpuscular Hemoglobin Concent 32.0, Red Cell Distribution Width 14.3, Calcium Level 8.5 L Microbiology Microbiology 03/02/19 Blood Culture - Final, Complete NO GROWTH AFTER 5 DAYS 03/02/19 Blood Culture - Final, Complete NO GROWTH AFTER 5 DAYS 03/08/19 Gram Stain - Final, Resulted 03/08/19 Wound Culture, Resulted Pending JANICE PONCE MD Mar 09, 2019 12:05
[2019-03-09 14:00] VITALS: BP 148/82
[2019-03-09 18:00] VITALS: BP 147/86
--- NOTE | 2019-03-09 19:58 | IPN ---
DATE: 03/09/2019 HISTORY: Patient is now 10 days postop from a partial colonic resection for perforation. Yesterday, I opened a portion of the lower half of her wound because of redness and tenderness and a large amount of material drained. Her gram stain showed few gram-positive cocci in pairs with many white cells. Culture is still pending. Vital signs show that she has been afebrile over the past 24 hours. Her pulse is in the low 90s. Blood pressure is good and her room air oxygen saturation is normal. Intake and output show that yesterday she had 950 mL recorded in orally and five voids were recorded. PHYSICAL EXAMINATION: Patient is lying quietly in the hospital bed eating a popsicle. She appears comfortable and alert. Heart exam shows a regular rhythm. The abdomen is soft. As a large dressing in place over her wound and I left this undisturbed. Her ostomy is pink and viable and functioning. Laboratory studies today showed a white count of 10, hemoglobin of 10, hematocrit of 32 and a platelet count of 461,000. Her chemistry profile shows a sodium of 143, potassium 3.9, chloride 110, CO2 of 28, BUN of 6, creatinine 0.6 and glucose of 96. IMPRESSION: Patient is making some progress. Her wound was changed today by nursing. We will see how her culture turns out within the next day or two. I will reassess her wound personally tomorrow to see if any change in the wound care is necessary.
[2019-03-09 22:00] VITALS: BP 146/80
[2019-03-10 02:00] VITALS: BP 143/72
[2019-03-10] MEDS: NORCO, ANEXSIA 5/325MG TABLET (HYDROcodone/ACETAMINOPHEN) PO PRN ×2 (04:25→13:52)
[2019-03-10] MEDS: SLF 3 ML SYR IV SCH ×3 (05:44→21:08)
[2019-03-10 06:00] VITALS: BP 139/70
[2019-03-10 06:36] LABS: HEMATOCRIT 32.6 % (36.0-47.0); HEMOGLOBIN 10.7 g/dl (12.0-15.5); MEAN CORPUSCULAR HEMOGLOBIN 29.7 pg (27.0-33.0); MEAN CORPUSCULAR HGB CONC 32.8 g/dl (32.0-36.5); MEAN CORPUSCULAR VOLUME 90.6 fl (80.0-96.0); PLATELET COUNT, AUTOMATED 453 10^3/uL (150-450); WHITE BLOOD COUNT 11.1 10^3/uL (4.0-10.0)
[2019-03-10 07:09] LABS: BLOOD UREA NITROGEN 5 MG/DL (7-18); CALCIUM LEVEL 8.4 MG/DL (8.8-10.2); CARBON DIOXIDE LEVEL 25 MEQ/L (21-32); CHLORIDE LEVEL 108 MEQ/L (98-107); CREATININE FOR GFR 0.51 MG/DL (0.55-1.30); GLOMERULAR FILTRATION RATE > 60.0 (>45); GLUCOSE, FASTING 98 MG/DL (70-100); SODIUM LEVEL 140 MEQ/L (136-145)
[2019-03-10] MEDS: OMEPRAZOLE 20 MG CAP PO SCH (09:24)
[2019-03-10] MEDS: SENOKOT S TAB PO SCH ×2 (09:24→20:36)
[2019-03-10] MEDS: THIAMINE 100 MG TAB PO SCH (09:25)
[2019-03-10] MEDS: ENOXAPARIN 40 MG/0.4 ML SYRINGE (J1650) SC SCH (09:25)
[2019-03-10] MEDS: FOLIC ACID 1 MG TAB PO SCH (09:25)
--- NOTE | 2019-03-10 13:29 | IPNPDOC ---
Date Seen The patient was seen on 03/10/19. Progress Note SUBJECTIVE: Patient states that she feels fine, abdominal tenderness improving. Although still noted serous drainage from her incision, not as bloody. Wound culture with few gram + cocci in pairs. Afebrile overnight. OBJECTIVE PHYSICAL EXAMINATION: VITAL SIGNS: Please see below. General: No acute distress, Alert Eyes: Normal sclera, EOMI, PACO HENT: Atraumatic, neck supple, moist mucous membranes Cardiovascular: Normal rate, normal rhythm. Pulmonary: Clear to auscultation b/l GI: Soft, mildly tender perisurgical sites, midline incision wound clean and dry. Skin: Warm and dry Neuro: CN grossly intact. No focal deficits. Strengths equal b/l. Psych: oriented x 3 LABORATORY DATA, IMAGING STUDIES, MICROBIOLOGY: Please see below. ASSESSMENT AND PLAN: 1. Complicated diverticulitis with perforation - s/p IR drainage of abscess and L. hemicolectomy with end traverse colostomy. - Perforated sigmoid and necrotic descending colon. - Previously on Zosyn->Ertapenem, now off Abx. - c/w dressing changes and wound care per surgery assistance/recommendations. - Wound appear to be improving. Wound culture with few GPC. pending final results. 2. L. basilar infiltrate - No symptoms of PNA however. - s/p Zosyn/ertapenem. 3. b/l Pneumo-retroperitoneum - Dr. Santos had discussed with pulm, does not warrant intervention at this time given no PTX or severe respiratory distress. 4. hx Alcohol use - No evidence of withdraw, outside window now. VS, I&O, 24H, Fishbone Vital Signs/I&O Vital Signs Date Time Temp Pulse Resp B/P (MAP) Pulse Ox O2 Delivery O2 Flow Rate FiO2 03/10/19 06:00 98.7 94 18 139/70 (93) 96 I&O- Last 24 Hours up to 6 AM 03/10/19 06:00 Intake Total 1290 ml Balance 1290 ml Laboratory Data 24H LABS Laboratory Tests 2 03/10/19 05:41: Nucleated Red Blood Cells % (auto) 0.0, Anion Gap 7L, Glomerular Filtration Rate > 60.0, Blood Urea Nitrogen 5L, Creatinine 0.51L, Sodium Level 140, Potassium Level 4.0, Chloride Level 108H, Carbon Dioxide Level 25, Calcium Level 8.4L CBC/BMP Laboratory Tests 03/10/19 05:41 Red Blood Count 3.60 L, Mean Corpuscular Volume 90.6, Mean Corpuscular Hemoglo bin 29.7, Mean Corpuscular Hemoglobin Concent 32.8, Red Cell Distribution Width 14.2, Calcium Level 8.4 L Microbiology Microbiology 03/02/19 Blood Culture - Final, Complete NO GROWTH AFTER 5 DAYS 03/02/19 Blood Culture - Final, Complete NO GROWTH AFTER 5 DAYS 03/08/19 Gram Stain - Final, Resulted 03/08/19 Wound Culture, Resulted Pending JANICE PONCE MD Mar 10, 2019 13:29
[2019-03-10 14:00] VITALS: BP 136/68
--- NOTE | 2019-03-10 20:04 | IPN ---
DATE: 03/10/2019 HISTORY: Patient is now postop day #11 from her exploratory laparotomy and colectomy for perforation. She had her wound partially opened by me on 03/08/2019 for what appeared to be an abscess developing in the lower portion of the wound. Her culture is still pending, with the gram stain showing only a few gram-positive cocci. Her wound has been getting changed several times daily. She reports that she is generally feeling well and is interested in going home soon. Vital signs show that the patient is afebrile. Her pulse has been ranging between the mid 80s to approximately 100. Blood pressure is good with a normal room air oxygen saturation. Intake and output shows that yesterday she had 1700 in with 6 voids recorded. Her ostomy output is not being recorded at this point. PHYSICAL EXAMINATION: Patient is resting quietly in bed when I came to see year. She rouses easily to voice. Heart exam shows a regular rhythm. The lungs are clear. The abdomen shows the ostomy on the left which is draining brown stool. The stoma is pink and viable. Her upper midline incision is nicely closed with pradeep. There is a short segment of the portion below the umbilicus which is open and the packing is removed. Her wound actually looks quite clean today and I repacked this with a gauze wick of saline gauze. The abdomen is otherwise soft and without significant tenderness. Laboratory studies show that today she had a white count of 11, hemoglobin of 11, hematocrit of 33 and a platelet count of 453,000. Chemistry profile showed a sodium of 140, potassium 4.0, chloride 108, CO2 of 25, BUN of 5, creatinine 0.5 and a glucose of 98. Microbiology shows that her wound culture is still pending. She is off antibiotics currently. IMPRESSION: Patient is doing well. Her wound is cleaning up nicely and the redness and induration in the lower portion of the wound is resolving or resolved. She reports that she believes she can handle the dressings herself. PLAN: We will plan discharge for tomorrow, 03/11/2019, if she is doing well. She will continue with the twice daily saline gauze dressings and her ostomy care. I will have patient and family services assess her need for home care services.
[2019-03-10 22:00] VITALS: BP 144/70
[2019-03-11] MEDS: NORCO, ANEXSIA 5/325MG TABLET (HYDROcodone/ACETAMINOPHEN) PO PRN ×2 (03:27→12:34)
[2019-03-11] MEDS: SLF 3 ML SYR IV SCH (05:22)
[2019-03-11 06:00] VITALS: BP 146/71
[2019-03-11 06:09] LABS: HEMATOCRIT 32.2 % (36.0-47.0); HEMOGLOBIN 10.5 g/dl (12.0-15.5); MEAN CORPUSCULAR HEMOGLOBIN 29.2 pg (27.0-33.0); MEAN CORPUSCULAR HGB CONC 32.6 g/dl (32.0-36.5); MEAN CORPUSCULAR VOLUME 89.7 fl (80.0-96.0); PLATELET COUNT, AUTOMATED 489 10^3/uL (150-450); RED BLOOD COUNT 3.59 10^6/uL (4.00-5.40)
[2019-03-11 06:34] LABS: BLOOD UREA NITROGEN 6 MG/DL (7-18); CALCIUM LEVEL 9.2 MG/DL (8.8-10.2); CARBON DIOXIDE LEVEL 27 MEQ/L (21-32); CHLORIDE LEVEL 107 MEQ/L (98-107); CREATININE FOR GFR 0.59 MG/DL (0.55-1.30); GLOMERULAR FILTRATION RATE > 60.0 (>45); GLUCOSE, FASTING 105 MG/DL (70-100); POTASSIUM SERUM 4.1 MEQ/L (3.5-5.1); SODIUM LEVEL 140 MEQ/L (136-145)
[2019-03-11] MEDS: SENOKOT S TAB PO SCH (09:09)
[2019-03-11] MEDS: OMEPRAZOLE 20 MG CAP PO SCH (09:09)
[2019-03-11] MEDS: THIAMINE 100 MG TAB PO SCH (09:09)
[2019-03-11] MEDS: FOLIC ACID 1 MG TAB PO SCH (09:09)
[2019-03-11] MEDS: ENOXAPARIN 40 MG/0.4 ML SYRINGE (J1650) SC SCH (09:10)
[2019-03-11] MEDS ORDERED: BACT800T5 PO (10:00)
[2019-03-11] MEDS ORDERED: HYDR-4571 PO (10:00)
[2019-03-11] MEDS ORDERED: THIA100TA PO (10:00)
--- NOTE | 2019-03-11 10:16 | DS.PDOC ---
Discharge Summary General Date of Admission Feb 24, 2019 at 13:40 Date of Discharge 03/11/19 Discharge Summary PROCEDURES PERFORMED DURING STAY: [None]. Exploratory laparotomy with abdominal washout, extended left hemicolectomy with takedown of the splenic flexure and transverse colon colostomy. ADMITTING DIAGNOSES: 1. Abdominal pain 2/2 severe diverticulitis with pericolic abscess 2. b/l Pneumoretroperitoneum 3. hx alcohol use DISCHARGE DIAGNOSES: 1. Complicated diverticulitis with perforation 2. L. basilar infiltrate 2. b/l Pneumoretroperitoneum 3. hx alcohol use COMPLICATIONS/CHIEF COMPLAINT: Abscess Of Sigmoid Colon Acute Diverticulitis. HISTORY OF PRESENT ILLNESS: "63 yo female with lower abdomen pain, N,V and diarrhea worse over past 1 week. Pateint states since september 2018, she has lost 25-30# because of nausea, unable to tolerate smell or taste of food. She states in November, she had first episode of diverticulitis and treated with 14 days of 2 antibiotics (presumed flagyl,levaquin). States abdomen pain never subsided and was intermittent on/off since then. Did not get colonoscopy. She states 02/16/19 pain worsened in intensity and severity and became sharp constant and associated with N,V,D. she has had fever and chills x4 days. patient and daughters (2) states worried and afraid that she will end up similar to her father who from complications of colon resection with colostomy and undiagnosed gallbladder infection. Home medications: st rae wort, ibuprofen Patient states she drinks 2-3 vodka/water daily and last EtOH use 02/22/19. States no history of DTs in past and has gone 1 month without drinking and no withdraw history" HOSPITAL COURSE: Patient underwent exploratory laparotomy with abdominal washout with L. hemicolectomy and colostomy. Have been on antibiotics with improvement in symptoms and leukocytosis, however WBC still elevated at 13 today, afebrile however. Initially planned to discharge about 3 days prior but stayed due to drainage from abdominal wound and was evacuated by surgery team. Wound culture sent showing WBCs and moderate enterococcus avium. Discussed with surgery, will discharge patient to f/u as outpatient with surgery on . To start on short course of PO Bactrim as outpatient. DISCHARGE MEDICATIONS: Please see below. ALLERGIES: Please see below. PHYSICAL EXAMINATION ON DISCHARGE: VITAL SIGNS: Please see below. General: No acute distress, Alert Eyes: Normal sclera, EOMI, PACO HENT: Atraumatic, neck supple, moist mucous membranes Cardiovascular: Normal rate, normal rhythm. Pulmonary: Clear to auscultation b/l GI: Soft, mildly tender perisurgical sites, midline incision wound clean and dry. Skin: Warm and dry Neuro: CN grossly intact. No focal deficits. Strengths equal b/l. Psych: oriented x 3 LABORATORY DATA: Please see below. IMAGING: CT SCAN ABDOMEN (02/24): There are two large pericolonic fluid collections at the sigmoid colon, one anteriorly containing fluid and gas bubbles measuring up to 5.6 cm and the other posteriorly inferior to the sigmoid measuring 4.6 cm. These are compatible with pericolonic abscesses. Additionally, there is extensive bilateral pneumo-retroperitoneum. The hepatic parenchyma is heterogeneous. The hepatic margin has a nodular appearance. These findings suggest hepatocellular disease such as cirrhosis. There are no hepatic masses. No varices are identified. The gallbladder, pancreas and spleen are unremarkable except that the pancreas is outlined by pneumoretroperitoneum. Impression: Severe diverticulitis with two large pericolonic abscesses adjacent to the sigmoid colon as described. There is marked pneumoretroperitoneum. There are findings compatible with hepatic cirrhosis. No hepatic masses. Bilateral renal parapelvic cysts. Abdomen CT (02/24)- Impression: The pericolonic abscesses adjacent to the sigmoid colon has significantly decreased in size after placement of percutaneous drainage catheter. Pneumoretroperitoneum and pneumoperitoneum are again identified. The gallbladder is distended as described. There are findings compatible with diffuse hepatocellular disease, requiring clinical confirmation. Bilateral parapelvic cysts are again suspected. ACTIVITY: [As tolerated]. DIET: Regular diet DISCHARGE PLAN: Complete course of Bactrim f/u Surgery on f/u PMD within 1 week DISPOSITION: Home. DISCHARGE INSTRUCTIONS: Complete course of Bactrim f/u Surgery on f/u PMD within 1 week c/w colostomy care as per instructed ITEMS TO FOLLOWUP ON ON OUTPATIENT: 1. None DISCHARGE CONDITION: [Stable]. TIME SPENT ON DISCHARGE: 35 minutes. Vital Signs/I&Os Vital Signs Date Time Temp Pulse Resp B/P (MAP) Pulse Ox O2 Delivery O2 Flow Rate FiO2 03/11/19 06:00 98.7 103 17 146/71 (23) 96 I&O- Last 24 Hours up to 6 AM 03/11/19 06:00 Intake Total 790 ml Balance 790 ml Laboratory Data Labs 24H Laboratory Tests 2 03/11/19 05:51: Nucleated Red Blood Cells % (auto) 0.0, Anion Gap 6L, Glomerular Filtration Rate > 60.0, Blood Urea Nitrogen 6L, Creatinine 0.59, Sodium Level 140, Potassium Level 4.1, Chloride Level 107, Carbon Dioxide Level 27, Calcium Level 9.2 CBC/BMP Laboratory Tests 03/11/19 05:51 Red Blood Count 3.59 L, Mean Corpuscular Volume 89.7, Mean Corpuscular Hemoglobin 29.2, Mean Corpuscular Hemoglobin Concent 32.6, Red Cell Distribution Width 13.9, Calcium Level 9.2 Microbiology Microbiology 03/02/19 Blood Culture - Final, Complete NO GROWTH AFTER 5 DAYS 03/02/19 Blood Culture - Final, Complete NO GROWTH AFTER 5 DAYS 03/08/19 Gram Stain - Final, Complete 03/08/19 Wound Culture - Final, Complete Enterococcus Avium Discharge Medications Scheduled Sulfamethoxazole/Trimethoprim (Bactrim Ds Tablet) 1 Each Tablet, 1 TAB PO BID Thiamine Hcl (Vitamin B-1) 100 Mg Tablet, 100 MG PO DAILY Scheduled PRN Aspirin/Sod Bicarb/Citric Acid ([place] Es Tab Eff) 1 Each Tablet.eff, 1 EACH PO for HEARTBURN/INDIGESTION, (Reported) Hydrocodone/Acetaminophen (Hydrocodone-Acetamin 5-325 mg) 1 Each Tablet, 1 TAB PO Q6HP PRN for MODERATE PAIN (PS 5-7) Ibuprofen (Ibu-200) 200 Mg Tablet, 200 MG PO Q6H PRN for PAIN, (Reported) Allergies Coded Allergies: No Known Allergies (Unverified , 02/24/19) JANICE PONCE MD Mar 11, 2019 10:16
--- NOTE | 2019-03-11 11:05 | IPNPDOC ---
Text Note Date of Service The patient was seen on 03/11/19. NOTE No acute events over the weekend. Denies nausea, emesis, fevers, or cough. The ostomy is still working, and she is working better with it. Plan is for dc home today VSSAF NAD abd - soft, less distended, no rebound, TTP appropriate, incision is opened below the umbilicus with some packing in place, edges appear clean labs - below A) 63y/o female with complicated diverticulitis with free air and an abscess s/p IR drainage no prior colonoscopy s/p extended left hemicolectomy with end transverse colostomy due to perforated sigmoid and necrotic descending colon P) reg diet abx monitor output ostomy teaching ambulate in the halls stable for d/c today f/u in office VS,Fishbone, I+O VS, Fishbone, I+O Laboratory Tests 03/11/19 05:51 Red Blood Count 3.59 L, Mean Corpuscular Volume 89.7, Mean Corpuscular Hemoglobin 29.2, Mean Corpuscular Hemoglobin Concent 32.6, Red Cell Distribution Width 13.9, Calcium Level 9.2 Vital Signs Date Time Temp Pulse Resp B/P (MAP) Pulse Ox O2 Delivery O2 Flow Rate FiO2 03/11/19 06:00 98.7 103 17 146/71 (96) 96 I&O- Last 24 Hours up to 6 AM 03/11/19 06:00 Intake Total 790 ml Balance 790 ml MARCOS SANTA DO Mar 11, 2019 11:05
--- NOTE | 2019-03-13 15:09 | REP ---
Clinical: Post surgical evaluation. Technique: Portable supine view of the abdomen. Findings: Nasogastric tube is identified along with postsurgical changes in the abdomen including surgical pradeep and surgical drains. Oral contrast material identifies portion of the colon. The bowel gas pattern is relatively nonspecific. No obvious free air. No organomegaly. No abnormal calcifications. No obvious contrast extravasation. Impression: Nonspecific portable postsurgical abdominal radiograph. Electronically Signed by Oleg Gee MD 03/01/2019 08:49 A
== END 2019-03-11 13:36 | disposition home health service (06) | DRG 329 ==
LOC: M ED 11:03 → M ED INP 13:40 → M PED 15:25 → M PCU 02-27 19:57 → M MSPAV 03-05 17:22
PROVIDERS: ADMIT Family Medicine; ATTEND Student in an Organized Health Care Education/Training Program
PROC: 0W9F3ZZ Drainage of Abdominal Wall, Percutaneous Approach (ICD-10-PCS; 2019-02-25)
PROC: 0DBM0ZZ Excision of Descending Colon, Open Approach (ICD-10-PCS; 2019-02-27)
PROC: 0D1L0Z4 Bypass Transverse Colon to Cutaneous, Open Approach (ICD-10-PCS; principal; 2019-02-27 14:00)
DX: K57.20 Diverticulitis of large intestine with perforation and abscess without bleeding (principal); K55.049 Acute infarction of large intestine, extent unspecified; K74.60 Unspecified cirrhosis of liver; J98.2 Interstitial emphysema; F10.10 Alcohol abuse, uncomplicated

== ENCOUNTER 2019-03-22 17:51 | Emergency (ER) | payer MEDICARE, MEDICAID ==
[~2019-03-22] VITALS: Ht 157.5 cm; Wt 62.3 kg
[~2019-03-22 17:51] MED LIST: ADVI100T PO; ALKATAB12 PO; BACT800T5 PO; HYDR-4571 PO; IBUP200T45 PO; ST J300C2 PO; THIA100TA PO
[2019-03-22 19:06] LABS: BASO % 0.3 % (0.0-1.0); EOS # 0.2 10^3/uL (0.0-0.50); EOS % 1.4 % (0.0-3.0); HEMATOCRIT 31.9 % (36.0-47.0); HEMOGLOBIN 10.4 g/dl (12.0-15.5); LYMPH # 2.2 10^3/uL (1.5-4.5); LYMPH % 15.3 % (24.0-44.0); MEAN CORPUSCULAR HEMOGLOBIN 28.3 pg (27.0-33.0); MEAN CORPUSCULAR HGB CONC 32.6 g/dl (32.0-36.5); MEAN CORPUSCULAR VOLUME 86.7 fl (80.0-96.0); MONO # 1.1 10^3/uL (0.0-0.8); MONO % 7.7 % (0.0-5.0); NEUTROPHILS # 10.9 10^3/uL (1.8-7.7); NEUTROPHILS % 74.6 % (36.0-66.0); PLATELET COUNT, AUTOMATED 520 10^3/uL (150-450); RED BLOOD COUNT 3.68 10^6/uL (4.00-5.40); WHITE BLOOD COUNT 14.6 10^3/uL (4.0-10.0)
[2019-03-22 19:28] LABS: ALBUMIN 2.4 GM/DL (3.2-5.2); ALT/SGPT 17 U/L (12-78); BILIRUBIN,DIRECT 0.1 MG/DL (0.0-0.2); BILIRUBIN,TOTAL 0.3 MG/DL (0.2-1.0); BLOOD UREA NITROGEN 9 MG/DL (7-18); CALCIUM LEVEL 9.1 MG/DL (8.8-10.2); CARBON DIOXIDE LEVEL 27 MEQ/L (21-32); CHLORIDE LEVEL 100 MEQ/L (98-107); CREATININE FOR GFR 0.94 MG/DL (0.55-1.30); GLOMERULAR FILTRATION RATE > 60.0 (>45); GLUCOSE, FASTING 154 MG/DL (70-100); LIPASE 204 U/L (73-393); POTASSIUM SERUM 3.6 MEQ/L (3.5-5.1); SODIUM LEVEL 137 MEQ/L (136-145); TOTAL PROTEIN 7.7 GM/DL (6.4-8.2)
--- NOTE | 2019-03-22 22:23 | REPVR ---
EXAM: US Abdomen Limited EXAM DATE/TIME: 03/22/2019 8:52 PM CLINICAL HISTORY: 63 years old, female; Abdominal pain; Other: Mass in luq; Prior surgery; Surgery date: <1 month; Surgery type: Patient had colostomy bag placed 2 weeks ago; Additional info: Eval st mass/abscess TECHNIQUE: Imaging protocol: Real-time ultrasound of the abdomen with image documentation. Examination is focused on the region of clinical interest. COMPARISON: No relevant prior studies available. FINDINGS: Spleen: Imaging in the area superior to the colostomy day in the left upper quadrant demonstrates a complex hypoechoic focus measuring 1.8 x 1.1 x 1.3 cm. Unclear if the lesion is cystic or represents a hypoechoic solid mass. IMPRESSION: Imaging in the area superior to the colostomy day in the left upper quadrant demonstrates a complex hypoechoic focus measuring 1.8 x 1.1 x 1.3 cm. Unclear if the lesion is complex cystic or represents a hypoechoic solid mass. Finding could represent an abscess in the appropriate clinical setting. Further evaluation with CT suggested if clinically desired. Electronically signed by: Charles Hernandez On 03/22/2019 22:23:28 PM
--- NOTE | 2019-03-22 23:59 | REPVR ---
EXAM: CT Abdomen and Pelvis Without Contrast EXAM DATE/TIME: 03/22/2019 11:22 PM CLINICAL HISTORY: 63 years old, female; Abdominal pain; Generalized; Additional info: Eval ventral st abscess TECHNIQUE: Imaging protocol: Axial computed tomography images of the abdomen and pelvis without contrast. Coronal and sagittal reformatted images were created and reviewed. Radiation optimization: All CT scans at this facility use at least one of these dose optimization techniques: automated exposure control; mA and/or kV adjustment per patient size (includes targeted exams where dose is matched to clinical indication); or iterative reconstruction. COMPARISON: CT ABD PELVIS WITH CONTRAST 02/27/2019 10:58 AM FINDINGS: Pleural space: Small left pleural effusion. Compressive atelectasis both lung bases, left greater than right. Infectious etiology on the left is to be considered as well. Findings may be reactive to intra-abdominal pathology (see comments below). Liver: Normal. No mass. Gallbladder and bile ducts: Normal. No calcified stones. No ductal dilation. Pancreas: Normal. No ductal dilation. Spleen: Normal. No splenomegaly. Adrenals: Normal. No mass. Kidneys and ureters: Mild bilateral hydroureteronephrosis, left greater than right without obstructing etiology demonstrated. Stomach and bowel: Stomach intrinsically unremarkable but compressed by abnormal peritoneal/omental masses located anteriorly Normal. No obstruction. No mucosal thickening. Appendix: No evidence of appendicitis. Intraperitoneal space: Normal. No free air. No significant fluid collection. Vasculature: Normal. No abdominal aortic aneurysm. Lymph nodes: Normal. No enlarged lymph nodes. Bladder: Unremarkable as visualized. Reproductive: Unremarkable as visualized. Bones/joints: Mild central spinal stenosis at L3-4 and moderate to severe central spinal stenosis at L4-5. Soft tissues: Colostomy demonstrated in the left lower quadrant with mild inflammatory changes in the surrounding soft tissues. Air within a soft tissue mass measuring 2.7 x 2 cm demonstrated in the mid anterior abdominal wall may be postprocedural low focal abscess not excluded. Grossly abnormal appearance of the upper peritoneal cavity/omentum extending from the abdominal midline to the left upper quadrant and posteriorly to anterior pararenal space as well as course in the left anterior abdominal wall wound there is a large lobular soft tissue mass measuring 4.2 x 6.8 cm. The abnormality extends posteriorly to the left anterior pararenal space with a fluid collection distal to the pancreatic tail measuring 4.9 x 2.7 cm. IMPRESSION: 1. Air within a soft tissue mass measuring 2.7 x 2 cm demonstrated in the mid anterior abdominal wall may be postprocedural low focal abscess not excluded. 2. Grossly abnormal findings in the peritoneal cavity/omentum extending from the midabdomen to the left upper quadrant and posteriorly in the left anterior pararenal space. Findings may represent infection (abscesses) and/or tumor and should be correlated clinically. As described above a large soft tissue mass crosses the anterior abdominal wall measuring 4.2 x 6.8 cm and the left upper quadrant. 3. Mild bilateral hydroureteronephrosis, left greater than right without obstructing etiology demonstrated. Electronically signed by: Charles Hernandez On 03/22/2019 23:58:29 PM
[2019-03-23] MEDS ORDERED: MORPHINE 4 MG/ML 1ML VIAL/SYRINGE (J2270) IV ONE (00:15)
[2019-03-23] MEDS ORDERED: metroNIDAZOLE 500 MG in APPROPRIATE DILUENT 1 EA IV ONE (01:00)
[2019-03-23] MEDS ORDERED: CIPROFLOXACIN 400 MG in APPROPRIATE DILUENT 1 EA IV ONE (01:00)
[2019-03-23 03:45] VITALS: BP 117/56
[2019-03-23] MEDS ORDERED: CIPR-249 PO (04:27)
[2019-03-23] MEDS ORDERED: FLAG500T PO (04:27)
[2019-03-23] MEDS ORDERED: NORCO 5/325MG TABLET (BULK FOR ED) PO ONE (04:30)
--- NOTE | 2019-03-23 20:05 | ED PDOC ---
Post-Departure Follow-Up dr phillips faxed formal report of ct abd p for fu Drew Horton MD Mar 23, 2019 20:05
--- NOTE | 2019-03-23 20:06 | ED PDOC ---
Post-Departure Follow-Up abdominal us also faxed to dr phillips for fu Drew Horton MD Mar 23, 2019 20:06
== END 2019-03-23 04:39 | disposition home or self-care (01) ==
LOC: M ED 17:51
DX: N39.0 Urinary tract infection, site not specified (principal); R10.9 Unspecified abdominal pain; G89.18 Other acute postprocedural pain; K21.9 Gastro-esophageal reflux disease without esophagitis; Z87.19 Personal history of other diseases of the digestive system; Z79.2 Long term (current) use of antibiotics
CPT/HCPCS: 74176; 76705; 80048; 80076; 81001; 83690; 85025; 87086; 96365; 96367; 96375; 99285; J0744; J2270

== ENCOUNTER 2019-07-03 06:59 | Day surgery (SDC) | payer MEDICARE, MEDICAID ==
[~2019-07-03] VITALS: Ht 157.5 cm; Wt 64.4 kg
[~2019-07-03 06:59] MED LIST changes: +CIPR-249 PO; +FLAG500T PO
[2019-07-03] MEDS ORDERED: NS 1,000 ML IV ONE (07:00)
[2019-07-03] MEDS ORDERED: LIDOCAINE 2% INJ 100 MG/5 ML SDV (FOR ANES.) As Ordered ONE (07:12)
[2019-07-03] MEDS ORDERED: PROPOFOL 200 MG/20 ML VIAL As Ordered ONE ×2 (07:12→07:13)
--- NOTE | 2019-07-03 08:44 | ROOR ---
Patient Name: Lizette Nunez Procedure Date: 07/03/2019 8:15 AM Date of : 1955 Age: 63 Room: [facility] Gender: Female Note Status: Finalized Procedure: Colonoscopy via Stoma with Endoscopy of Cassandra Pouch Indications: History of diverticulitis s/p diverting colostomy with Cassandra pouch Providers: DO Sasha Wilde MD: Monica Mcbride NP Requesting Provider: Medicines: Propofol per Anesthesia Complications: No immediate complications. Estimated blood loss: None. Procedure: Pre-Anesthesia Assessment: - Prior to the procedure, a History and Physical was performed, and patient medications and allergies were reviewed. The patient is competent. The risks and benefits of the procedure and the sedation options and risks were discussed with the patient. All questions were answered and informed consent was obtained. Patient identification and proposed procedure were verified by the physician, the nurse, the anesthesiologist and the emergency medical technician basic in the endoscopy suite. Mental Status Examination: alert and oriented. Airway Examination: normal oropharyngeal airway and neck mobility. Respiratory Examination: clear to auscultation. CV Examination: normal. Prophylactic Antibiotics: The patient does not require prophylactic antibiotics. Prior Anticoagulants: The patient has taken no previous anticoagulant or antiplatelet agents. ASA Grade Assessment: II - A patient with mild systemic disease. After reviewing the risks and benefits, the patient was deemed in satisfactory condition to undergo the procedure. The anesthesia plan was to use monitored anesthesia care (MAC). Immediately prior to administration of medications, the patient was re-assessed for adequacy to receive sedatives. The heart rate, respiratory rate, oxygen saturations, blood pressure, adequacy of pulmonary ventilation, and response to care were monitored throughout the procedure. The physical status of the patient was re-assessed after the procedure. The Colonoscope was introduced through the anus and advanced to the Cassandra pouch. The procedure was performed without difficulty. The patient tolerated the procedure well. Findings: A few small-mouthed diverticula were found in the transverse colon. Impression: - Diverticulosis in the transverse colon. - No specimens collected. Recommendation: - Discharge patient to home. Cali Hernandez DO 07/03/2019 8:44:28 AM Electronically signed by Cali Hernandez DO Number of Addenda: 0 Note Initiated On: 07/03/2019 8:15 AM Estimated Blood Loss: Estimated blood loss: none.
[2019-07-03 09:13] VITALS: BP 168/74
== END 2019-07-03 09:16 | disposition home or self-care (01) ==
LOC: M OPP 06:59 → MERGE 08:00 → M OPP 09:16
PROVIDERS: ATTEND Surgery
DX: K57.30 Diverticulosis of large intestine without perforation or abscess without bleeding (principal); Z93.3 Colostomy status; Z09 Encounter for follow-up examination after completed treatment for conditions other than malignant neoplasm

== ENCOUNTER 2019-07-19 06:36 | Inpatient (IN) | payer MEDICARE, MEDICAID ==
--- NOTE | 2019-07-16 12:53 | HPE ---
DATE OF ADMISSION: 07/19/2019 CHIEF COMPLAINT: Diverticulitis. HISTORY OF PRESENT ILLNESS: The patient is 63-year-old female, who underwent an extended left hemicolectomy with transverse colostomy due to perforated diverticulitis back in February. She is now coming in for elective colostomy reversal. She underwent colonoscopy recently that was normal, and therefore, she is ready for reversal. Surgery at this point is scheduled for 07/19/2019 and consent has been obtained. PAST MEDICAL HISTORY: Negative. PAST SURGICAL HISTORY: Exploratory laparotomy with extended left hemicolectomy, takedown of splenic flexure and transverse colon colostomy in February 27 of this year. SOCIAL HISTORY: Denies tobacco usage. Drinks alcohol daily. FAMILY HISTORY: Noncontributory. ALLERGIES: NONE. MEDICATIONS: Please see med rec. REVIEW OF SYSTEMS: Pertinent positives and negatives as stated in the history of present illness (HPI). PHYSICAL EXAMINATION: General: Alert and oriented times three. No acute stress. Vitals: Blood pressure 130/70, pulse 82, respirations 18. Most recent weight 144 pounds. Heart: S1, S2, regular rate and rhythm. Lungs: Clear to auscultation bilaterally. Abdomen: Soft, nontender, nondistended. Transverse colostomy in place pink and patent. Extremities: No clubbing, cyanosis or edema. LABORATORY DATA None obtained. ASSESSMENT/PLAN Again the patient is a 63-year-old female status post recent colostomy for perforated diverticulitis. She is presenting for elective surgery on 07/19/2019 for colostomy reversal. Risks and benefits of procedure are not limited but including bleeding, infection, hernia formation, damage to surrounding structures, need for further surgery were discussed in detail with the patient. Informed consent was obtained and procedure was planned for 07/19/2019. Postoperatively, she will be kept in the hospital for 2-5 days. Once she is having normal bowel movements she will be discharged home. All of her questions were answered and surgery is scheduled for Monday.
[~2019-07-19] VITALS: Ht 157.5 cm; Wt 64.5 kg
[2019-07-19] MEDS ORDERED: LR 1,000 ML IV ONE (07:00)
[2019-07-19] MEDS ORDERED: ERTAPENEM SODIUM 1 GM in NS MINI-BAG PLUS 50 ML IV ONE (07:00)
[2019-07-19 07:14] LABS: HEMATOCRIT 45.1 % (36.0-47.0); HEMOGLOBIN 15.2 g/dl (12.0-15.5); MEAN CORPUSCULAR HEMOGLOBIN 30.5 pg (27.0-33.0); MEAN CORPUSCULAR HGB CONC 33.7 g/dl (32.0-36.5); MEAN CORPUSCULAR VOLUME 90.4 fl (80.0-96.0); PLATELET COUNT, AUTOMATED 189 10^3/uL (150-450); RED BLOOD COUNT 4.99 10^6/uL (4.00-5.40); WHITE BLOOD COUNT 5.8 10^3/uL (4.0-10.0)
[2019-07-19] MEDS ORDERED: ERTAPENEM 1 GM INJ (INVanz) (J1335) As Ordered ONE (07:16)
[2019-07-19] MEDS ORDERED: BUPIVACAINE/EPIN 0.25% 30 ML VIAL As Ordered ONE (08:07)
[2019-07-19] MEDS ORDERED: SUGAMMADEX SODIUM 500 MG/5 ML VIAL (BRIDION) As Ordered ONE (09:09)
[2019-07-19] MEDS ORDERED: fentaNYL 250 MCG/5 ML INJECTION (J3010) As Ordered ONE (09:09)
[2019-07-19] MEDS ORDERED: PROPOFOL 200 MG/20 ML VIAL As Ordered ONE (09:09)
[2019-07-19] MEDS ORDERED: dexameTHASONE 4 MG/ML 1ML VIAL (J1100) As Ordered ONE (09:09)
[2019-07-19] MEDS ORDERED: MIDAZOLAM INJ 2 MG/2 ML VIAL (J2250) As Ordered ONE (09:09)
[2019-07-19] MEDS ORDERED: ROCURONIUM BROMIDE 50 MG/5 ML VIAL As Ordered ONE ×2 (09:09→10:18)
[2019-07-19] MEDS ORDERED: HYDROmorphone HCL 2 MG/ML 1ML VIAL (J1170) As Ordered ONE (09:09)
[2019-07-19] MEDS ORDERED: ONDANSETRON 4MG/2ML VIAL (J2405) As Ordered ONE (09:09)
[2019-07-19] MEDS ORDERED: LIDOCAINE 2% INJ 100 MG/5 ML SDV (FOR ANES.) As Ordered ONE (09:09)
[2019-07-19] MEDS ORDERED: METOCLOPRAMIDE INJ 10MG/2ML VIAL (J2765) As Ordered ONE (09:09)
[2019-07-19] MEDS ORDERED: LABETALOL HCL 100 MG/20 ML VIAL As Ordered ONE (09:39)
[2019-07-19] MEDS ORDERED: hydrALAZINE INJ 20 MG/ML VIAL As Ordered ONE (10:01)
[2019-07-19] MEDS ORDERED: ACETAMINOPHEN 1000MG 100ML IV BTL (OFIRMEV) (J0131 PER 10MG) As Ordered ONE (10:04)
--- NOTE | 2019-07-19 10:12 | ECGEPIP ---
[facility] Test Date: 2019-07-19 Pat Name: KELSEY PERES Department: Room: [place] [address] Gender: Female Dry Talc Racker: ALTON : 1955 Requested By: MIR Florence Order Number: [id number] Reading MD: Terra De La Torre Measurements Intervals [place] Rate: 60 P: 60 UT: 187 QRS: 49 QRSD: 94 T: 64 QT: 409 QTc: 411 Interpretive Statements SINUS RHYTHM NSST TWAVE CHANGES NO PRIOR Electronically Signed on 07-19-2019 10:12:37 EST by Terra De La Torre
[2019-07-19] MEDS ORDERED: DESFLURANE 240 ML INHALANT As Ordered ONE (11:05)
[2019-07-19] MEDS ORDERED: ePHEDrine SULFATE 25 MG/5 ML(5MG/ML) SYRINGE As Ordered ONE (13:08)
[2019-07-19] MEDS ORDERED: LR 1,000 ML IV SCH (14:00)
[2019-07-19] MEDS ORDERED: MORPHINE 10 MG/ML 1ML VIAL (J2270) IV PRN (14:00)
[2019-07-19] MEDS ORDERED: ONDANSETRON 4MG/2ML VIAL (J2405) IV PRN ×2 (14:00→14:15)
[2019-07-19] MEDS: fentaNYL 100 MCG/2 ML INJECTION (J3010) IV PRN ×4 (14:01→14:16)
[2019-07-19] MEDS ORDERED: KETOROLAC 30 MG/ML VIAL (J1885) IV PRN (14:15)
[2019-07-19] MEDS ORDERED: ACETAMINOPHEN TAB 650MG DOSE (2X325MG) PO PRN (14:15)
[2019-07-19 15:00] VITALS: BP 126/68
[2019-07-19 15:30] VITALS: BP 130/69
[2019-07-19] MEDS: PANTOPRAZOLE 40MG TAB (PROTONIX) PO SCH (15:31)
[2019-07-19] MEDS: MORPHINE 2 MG/ML 1ML VIAL (J2270) IV PRN (17:14)
[2019-07-19] MEDS: KCL 20MEQ IN D5/0.45NS 1000ML 1,000 ML IV SCH (17:21)
[2019-07-19] MEDS: SENOKOT S TAB PO SCH (20:01)
[2019-07-19] MEDS: NORCO, ANEXSIA 5/325MG TABLET (HYDROcodone/ACETAMINOPHEN) PO PRN (20:02)
[2019-07-19 22:00] VITALS: BP 149/89
[2019-07-20] MEDS: KCL 20MEQ IN D5/0.45NS 1000ML 1,000 ML IV SCH ×3 (01:35→14:58)
[2019-07-20] MEDS: MORPHINE 2 MG/ML 1ML VIAL (J2270) IV PRN (01:35)
[2019-07-20 05:56] LABS: HEMATOCRIT 36.3 % (36.0-47.0); MEAN CORPUSCULAR HEMOGLOBIN 30.4 pg (27.0-33.0); MEAN CORPUSCULAR HGB CONC 33.9 g/dl (32.0-36.5); MEAN CORPUSCULAR VOLUME 89.6 fl (80.0-96.0); PLATELET COUNT, AUTOMATED 167 10^3/uL (150-450); RED BLOOD COUNT 4.05 10^6/uL (4.00-5.40); WHITE BLOOD COUNT 8.4 10^3/uL (4.0-10.0)
[2019-07-20 06:00] VITALS: BP 134/80
[2019-07-20 06:12] LABS: HEMOGLOBIN 12.3 g/dl (12.0-15.5)
[2019-07-20 06:14] LABS: BLOOD UREA NITROGEN 10 MG/DL (7-18); CALCIUM LEVEL 8.7 MG/DL (8.8-10.2); CARBON DIOXIDE LEVEL 27 MEQ/L (21-32); CHLORIDE LEVEL 109 MEQ/L (98-107); CREATININE FOR GFR 0.62 MG/DL (0.55-1.30); GLOMERULAR FILTRATION RATE > 60.0 (>45); GLUCOSE, FASTING 136 MG/DL (70-100); SODIUM LEVEL 141 MEQ/L (136-145)
[2019-07-20] MEDS: ENOXAPARIN 40 MG/0.4 ML SYRINGE (J1650) SC SCH (07:59)
[2019-07-20] MEDS: SENOKOT S TAB PO SCH ×2 (08:00→20:20)
[2019-07-20] MEDS ORDERED: ERTAPENEM SODIUM 1 GM in NS MINI-BAG PLUS 50 ML IV SCH (08:00)
[2019-07-20] MEDS: PANTOPRAZOLE 40MG TAB (PROTONIX) PO SCH (08:00)
[2019-07-20] MEDS: NORCO, ANEXSIA 5/325MG TABLET (HYDROcodone/ACETAMINOPHEN) PO PRN ×3 (08:00→21:16)
[2019-07-20 10:00] VITALS: BP 133/78
--- NOTE | 2019-07-20 11:54 | IPNPDOC ---
Text Note Date of Service The patient was seen on 07/20/19. NOTE No acute events overnight. She is tolerating clq diet. Denies nausea, emesis, fevers, or pains. She is ambulating around the room and making it to the bathroom on her own. VSSAF NAD abd - soft, nd, TTP appropriate, incisions c/d/i, drain is serosanguinous labs - below A) 63y/o female s/p RA colostomy reversal P) clq diet ambulate OOB to chair await return of bowel function Steve Hernandez DO VS,Jony, I+O VS, Jony, I+O Laboratory Tests 07/20/19 05:36 Vital Signs Date Time Temp Pulse Resp B/P (MAP) Pulse Ox O2 Delivery O2 Flow Rate FiO2 07/20/19 10:00 98.8 98 18 133/78 (96) 95 Nasal Cannula 2.0 07/19/19 15:00 98 I&O- Last 24 Hours up to 6 AM 07/20/19 06:00 Intake Total 3400 ml Output Total 435 ml Balance 2965 ml MARCOS HERNANDEZ DO Jul 20, 2019 11:54
[2019-07-20 14:00] VITALS: BP 148/91
[2019-07-20 18:00] VITALS: BP 148/90
[2019-07-20 22:00] VITALS: BP 148/87
[2019-07-21] MEDS: KCL 20MEQ IN D5/0.45NS 1000ML 1,000 ML IV SCH ×3 (00:56→16:49)
[2019-07-21] MEDS: NORCO, ANEXSIA 5/325MG TABLET (HYDROcodone/ACETAMINOPHEN) PO PRN ×3 (04:02→23:32)
[2019-07-21 06:00] VITALS: BP 145/83
[2019-07-21 06:22] LABS: HEMATOCRIT 36.3 % (36.0-47.0); MEAN CORPUSCULAR HEMOGLOBIN 30.1 pg (27.0-33.0); MEAN CORPUSCULAR HGB CONC 33.1 g/dl (32.0-36.5); PLATELET COUNT, AUTOMATED 147 10^3/uL (150-450); RED BLOOD COUNT 3.99 10^6/uL (4.00-5.40); WHITE BLOOD COUNT 6.6 10^3/uL (4.0-10.0)
[2019-07-21 06:39] LABS: BLOOD UREA NITROGEN 6 MG/DL (7-18); CALCIUM LEVEL 8.8 MG/DL (8.8-10.2); CARBON DIOXIDE LEVEL 27 MEQ/L (21-32); CHLORIDE LEVEL 110 MEQ/L (98-107); CREATININE FOR GFR 0.58 MG/DL (0.55-1.30); GLOMERULAR FILTRATION RATE > 60.0 (>45); GLUCOSE, FASTING 115 MG/DL (70-100); POTASSIUM SERUM 4.1 MEQ/L (3.5-5.1); SODIUM LEVEL 141 MEQ/L (136-145)
[2019-07-21] MEDS: PANTOPRAZOLE 40MG TAB (PROTONIX) PO SCH (08:35)
[2019-07-21] MEDS: SENOKOT S TAB PO SCH ×2 (08:35→20:19)
[2019-07-21] MEDS: ENOXAPARIN 40 MG/0.4 ML SYRINGE (J1650) SC SCH (08:37)
[2019-07-21] MEDS ORDERED: PREVNAR 13 VACCINE SYRINGE (CPT CODE:90670) IM ONE (09:00)
[2019-07-21 10:00] VITALS: BP 145/82
--- NOTE | 2019-07-21 10:26 | RO ---
DATE OF PROCEDURE: 07/19/2019 PREOPERATIVE DIAGNOSIS: Diverticulitis. POSTOPERATIVE DIAGNOSIS: Diverticulitis. PROCEDURE: Robotic mobilization of the transverse colon, lysis of adhesions, takedown of colostomy and colostomy reversal. SURGEON: Dr. Cali Hernandez. ROCK CRUSHER: Dr. Eli who assisted with mobilization of the colon as well as the colorectal anastomosis. ANESTHESIA: General. ESTIMATED BLOOD LOSS: 50 mL. COMPLICATIONS: None. INDICATIONS FOR PROCEDURE: The patient is a 63-year-old female who had perforated diverticulitis back in February, underwent an extended left hemicolectomy, now with colostomy. She is here for elective reversal. Risks and benefits of procedure not limited to but including bleeding, infection, hernia formation, damage to surrounding structures, and need for further surgery were discussed in detail with the patient. Informed consent was obtained and procedure was planned. DESCRIPTION OF PROCEDURE: The patient was brought back to operating room seven. After sufficient sedation, the abdomen was sterilely prepped and draped. Next, a time-out was done to confirm proper patient, proper procedure. Following that, 8 mm incision made in left upper quadrant, Veress needle was inserted, and the abdomen was insufflated to 15 mmHg. Next, the Veress needle was removed and an 8 mm robotic Optiview port was used to gain access to the abdomen. Once the abdomen was entered, another 8 mm port was carefully placed towards the midline inferior to the first one. Using laparoscopic scissors, I was able to take down enough adhesions to get a port into the left lateral midabdomen. After doing so, I was able to take down adhesions along the entire superior abdomen, all the way over to the right side, all the way around the superior colostomy enough to be able to get the four robotic ports in. Once that was completed, I placed the rest of the robotic ports along the right side and then docked the robot to the ports. Next, I took down the rest of the adhesions circumferentially around the colostomy itself and then took down omental adhesions down into the right lower quadrant, into the pelvis, took down all the small bowel adhesions down into the pelvis and around the uterus as well. I was then able to elevate the uterus in the air, take down adhesions from the rectum and mobilize that up out of the pelvis. Once this was all completed, there appeared to be enough length on the colostomy to reach down towards the rectum, so the robot was undocked, the skin was opened up around the colostomy using cautery until the colostomy was completely mobile. The distal 4 cm of colostomy was then transected. EEA sizers were used, the 29 EEA appeared to be a good size. The EEA anvil was then placed inside. LUIS ANGEL 75 blue load stapler was then brought across the colon to staple it off, and the anvil was brought out through the staple line. One single interrupted Prolene stitch was then placed around the base of the anvil to hold it intact. Anvil and colon were placed back inside the abdomen. The fascia was closed with two #1 PDS sutures. The abdomen then reinsufflated. The colon was placed down inside of the pelvis and appeared to be a good length. It was under a slight amount of tension, so the transverse colon was mobilized away from the rest of the omentum. Some of the adhesions in the superior abdomen were all taken down until it was able to reach easily. Next, the EEA was brought in through the rectum, had a difficult time reaching through the rectum due to tight angulation. I dissected circumferentially around the midportion of the rectum to increase the mobilization. However, upon further advancement of the EEA stapler, it pushed and started to come out the side of the rectum. Because of that, I had to mobilize the rest of the rectum and brought in a robotic 45 mm green load on the stapler and removed another 7-8 cm of the rectum where the split had occurred, bringing it all the way down to the low portion of the rectum. Once that was done, the colon had to be mobilized again up along the transverse colon so that it would reach. Once that was done, I was able to reach all the way down into the pelvis with it. The EEA anastomosis was created. Prior to placing Tisseel, we did a pressure test with saline in the pelvis that was normal. No signs of any air leak. Tisseel was then placed around the anastomosis. A 19-Danish Ra drain was placed next to the anastomosis. A 10 mm EndoCatch bag was then brought in, the end of the rectum was placed inside of the bag, brought out and then once that was removed from the abdomen, interrupted #0 Vicryl sutures were used to close the fascia at the 12 mm port site. Once this was all completed, the drain was brought out through the left upper quadrant incision site, sutured in place with a #2-0 silk suture. The abdomen was desufflated the rest of the way. Skin incisions were closed with pradeep. The abdomen was cleaned and dried, 4 x 4 and tape were applied, thus ending procedure.
--- NOTE | 2019-07-21 11:57 | IPNPDOC ---
Text Note Date of Service The patient was seen on 07/21/19. NOTE No acute events overnight. She is tolerating clq diet. Denies nausea, emesis, fevers, or pains. She is ambulating around the room and making it to the bathroom on her own. She is passing flatus, and had a small BM. VSSAF NAD abd - soft, nd, TTP appropriate, incisions c/d/i, drain is serosanguinous labs - below A) 63y/o female s/p RA colostomy reversal P) reg diet ambulate OOB to chair likely d/c home tomorrow Steve Hernandez DO VS,Fishbone, I+O VS, Fishbone, I+O Laboratory Tests 07/21/19 05:45 Vital Signs Date Time Temp Pulse Resp B/P (MAP) Pulse Ox O2 Delivery O2 Flow Rate FiO2 07/21/19 10:00 97.5 89 17 145/82 (103) 98 Room Air 07/21/19 06:00 2.0 07/19/19 15:00 98 I&O- Last 24 Hours up to 6 AM 07/21/19 06:00 Intake Total 1490 ml Output Total 590 ml Balance 900 ml MARCOS HERNANDEZ DO Jul 21, 2019 11:57
[2019-07-21 14:00] VITALS: BP 169/81
[2019-07-21 22:00] VITALS: BP 152/85
[2019-07-22] MEDS: KCL 20MEQ IN D5/0.45NS 1000ML 1,000 ML IV SCH (02:26)
[2019-07-22 06:00] VITALS: BP 154/86
[2019-07-22 06:46] LABS: HEMATOCRIT 35.2 % (36.0-47.0); HEMOGLOBIN 11.8 g/dl (12.0-15.5); MEAN CORPUSCULAR HEMOGLOBIN 30.3 pg (27.0-33.0); MEAN CORPUSCULAR HGB CONC 33.5 g/dl (32.0-36.5); MEAN CORPUSCULAR VOLUME 90.3 fl (80.0-96.0); PLATELET COUNT, AUTOMATED 157 10^3/uL (150-450); WHITE BLOOD COUNT 5.9 10^3/uL (4.0-10.0)
[2019-07-22 07:08] LABS: BLOOD UREA NITROGEN 6 MG/DL (7-18); CALCIUM LEVEL 8.4 MG/DL (8.8-10.2); CARBON DIOXIDE LEVEL 27 MEQ/L (21-32); CHLORIDE LEVEL 108 MEQ/L (98-107); CREATININE FOR GFR 0.65 MG/DL (0.55-1.30); GLOMERULAR FILTRATION RATE > 60.0 (>45); GLUCOSE, FASTING 108 MG/DL (70-100); SODIUM LEVEL 141 MEQ/L (136-145)
[2019-07-22] MEDS: PANTOPRAZOLE 40MG TAB (PROTONIX) PO SCH (08:22)
[2019-07-22] MEDS: SENOKOT S TAB PO SCH ×2 (08:22→21:08)
[2019-07-22] MEDS: ENOXAPARIN 40 MG/0.4 ML SYRINGE (J1650) SC SCH (08:22)
[2019-07-22] MEDS: NORCO, ANEXSIA 5/325MG TABLET (HYDROcodone/ACETAMINOPHEN) PO PRN ×2 (08:23→18:45)
--- NOTE | 2019-07-22 09:08 | IPNPDOC ---
Text Note Date of Service The patient was seen on 07/22/19. NOTE No acute events overnight. She is tolerating reg diet. Denies nausea, emesis, or fevers. She is ambulating around the room and in the [place]. She is passing flatus, and had another small BM. This am she is complaining of pains across her lower abdomen. VSSAF NAD abd - soft, TTP across the lower abdomen. No rebound. No changes to the drain color or output. incisions c/d/i, drain is serosanguinous labs - below A) 63y/o female s/p RA colostomy reversal P) reg diet ambulate OOB to chair may shower likely d/c home tomorrow if pain is improved. Steve Hernandez DO VS,Jony, I+O VSJony, I+O Laboratory Tests 07/22/19 06:17 Vital Signs Date Time Temp Pulse Resp B/P (MAP) Pulse Ox O2 Delivery O2 Flow Rate FiO2 07/22/19 08:23 18 07/22/19 06:00 97.6 74 154/86 (108) 97 Room Air 07/21/19 06:00 2.0 07/19/19 15:00 98 I&O- Last 24 Hours up to 6 AM 07/22/19 05:59 Intake Total 1370 ml Output Total 255 ml Balance 1115 ml MARCOS HERNANDEZ DO Jul 22, 2019 09:08
[2019-07-22 14:00] VITALS: BP 164/84
[2019-07-22 22:00] VITALS: BP 140/82
[2019-07-23] MEDS: NORCO, ANEXSIA 5/325MG TABLET (HYDROcodone/ACETAMINOPHEN) PO PRN ×2 (00:48→06:50)
[2019-07-23 06:00] VITALS: BP 138/84
[2019-07-23 06:17] LABS: MEAN CORPUSCULAR HEMOGLOBIN 30.8 pg (27.0-33.0); MEAN CORPUSCULAR HGB CONC 34.3 g/dl (32.0-36.5); PLATELET COUNT, AUTOMATED 177 10^3/uL (150-450); RED BLOOD COUNT 3.89 10^6/uL (4.00-5.40); WHITE BLOOD COUNT 6.1 10^3/uL (4.0-10.0)
[2019-07-23 06:44] LABS: BLOOD UREA NITROGEN 9 MG/DL (7-18); CALCIUM LEVEL 9.1 MG/DL (8.8-10.2); CARBON DIOXIDE LEVEL 26 MEQ/L (21-32); CHLORIDE LEVEL 108 MEQ/L (98-107); CREATININE FOR GFR 0.64 MG/DL (0.55-1.30); GLOMERULAR FILTRATION RATE > 60.0 (>45); GLUCOSE, FASTING 94 MG/DL (70-100); SODIUM LEVEL 140 MEQ/L (136-145)
[2019-07-23] MEDS ORDERED: HYDR-4571 PO (08:35)
[2019-07-23] MEDS: PANTOPRAZOLE 40MG TAB (PROTONIX) PO SCH (09:21)
[2019-07-23] MEDS: SENOKOT S TAB PO SCH (09:21)
[2019-07-23] MEDS: ENOXAPARIN 40 MG/0.4 ML SYRINGE (J1650) SC SCH (09:21)
== END 2019-07-23 12:34 | disposition home or self-care (01) | DRG 331 ==
LOC: M OR 06:36 → MERGE 12:30 → M MSPAV 14:48
PROVIDERS: ADMIT Surgery; ATTEND Surgery
PROC: 0DBP4ZZ Excision of Rectum, Percutaneous Endoscopic Approach (ICD-10-PCS; 2019-07-19)
PROC: 0DQL4ZZ Repair Transverse Colon, Percutaneous Endoscopic Approach (ICD-10-PCS; principal; 2019-07-19 08:30)
DX: Z43.3 Encounter for attention to colostomy (principal)

== ENCOUNTER → 2020-03-05 | Outpatient (CLI) | payer MEDICARE, MEDICAID ==
--- NOTE | 2020-03-05 14:30 | REP ---
CT ABDOMEN AND PELVIS WITHOUT IV OR ORAL CONTRAST: Renal stone protocol. HISTORY: Incisional hernia without obstruction. Comparison CT study 10/23/2018. CT FINDINGS: Preliminary digital police officer crime prevention radiograph demonstrates a normal bowel gas pattern. Axial CT images of the lung bases demonstrate a 3 mm noncalcified pulmonary nodule in the left lower lobe on page 6 of 54 in series 204 today's study. On comparison CT study February 24, 2019, this appears to have been present and visible in retrospect. It is most compatible with a tiny benign granulomatous nodule. There is minimal linear fibrosis in both lower lobes. No pleural effusion is seen today. The liver and the spleen are normal in size homogeneous in texture. Normal adrenal glands are seen. No abnormality is noted in the pancreas. Gallbladder is unremarkable. Kidneys appear intact without evidence of stone or hydronephrosis. Normal caliber aorta. There is an epigastric ventral hernia with diastases of the rectus abdominis muscles. The hernia contains omental fat but not bowel. The transverse colon does appear to extend slightly anterior but not quite into the hernia sac. The abdominal wall defect measures 8.1 cm in craniocaudal span x 9.1 cm right to left. This is above the umbilicus. There are postsurgical changes in the left lower quadrant anterior abdominal wall subcutaneous fat. The patient appears to be status post ventral hernia repair in the lower anterior abdominal wall. No uterine or ovarian abnormality is seen. Urinary bladder is intact. The patient is status post left partial colectomy. IMPRESSION: Status post left colectomy. Broad-based ventral hernia in the epigastric and supraumbilical region containing omental fat. No acute abnormality. Electronically Signed by Van Padron MD 03/05/2020 03:11 P
== END ==
LOC: M RAD 13:24
PROVIDERS: ATTEND Surgery
DX: K43.2 Incisional hernia without obstruction or gangrene (principal); R91.1 Solitary pulmonary nodule; J84.10 Pulmonary fibrosis, unspecified; K43.9 Ventral hernia without obstruction or gangrene; Z90.49 Acquired absence of other specified parts of digestive tract

== ENCOUNTER 2020-08-12 07:30 | Inpatient (IN) | payer MEDICARE, MEDICAID ==
[~2020-08-12] VITALS: Ht 157.5 cm; Wt 75.9 kg
[2020-08-24] MEDS ORDERED: CVS50CAP PO (12:46)
[2020-08-24] MEDS ORDERED: IBUP200C25 PO (12:46)
[2020-08-24] MEDS ORDERED: ALLE180T33 PO (12:46)
[2020-10-12] MEDS ORDERED: PERC5TAB12 PO (17:54)
[2021-01-18] MEDS ORDERED: LR 1,000 ML IV ONE (06:00)
[2021-01-18] MEDS ORDERED: ceFAZolin SOD 2 GM in IV 1 EA IV ONE (06:00)
[2021-01-18] MEDS ORDERED: HEPARIN SOD (PORCINE) 5000UNITS/ML 1ML VIAL/SYRINGE SQ ONE (06:00)
[2021-01-18] MEDS ORDERED: CelecoXIB 400 MG CAP PO ONE (06:00)
[2021-01-18] MEDS ORDERED: FLUTISP (06:38)
[2021-01-18] MEDS ORDERED: BUPIVACAINE LIPOSOME/PF 1.3% 20ML VIAL (13.3MG/ML)(EXPAREL)(C9290 PER1MG) As Ordered ONE (07:08)
[2021-01-18] MEDS ORDERED: BUPIVACAINE HCL 0.25% 30ML VIAL As Ordered ONE ×2 (07:08→07:39)
[2021-01-18] MEDS ORDERED: LIDOCAINE 1% SDV 30ML VIAL As Ordered ONE (07:08)
[2021-01-18] MEDS ORDERED: LACRILUBE (AKWA TEARS) OPHTH OINT 3.5 GM As Ordered ONE (07:12)
[2021-01-18] MEDS ORDERED: ONDANSETRON 4MG/2ML VIAL As Ordered ONE (07:14)
[2021-01-18] MEDS ORDERED: ROCURONIUM BROMIDE 50 MG/5 ML VIAL As Ordered ONE ×4 (07:14→16:03)
[2021-01-18] MEDS ORDERED: propofoL 200 MG/20 ML VIAL As Ordered ONE (07:14)
[2021-01-18] MEDS ORDERED: LIDOCAINE 2% 100MG/5ML SDV (FOR ANES.) As Ordered ONE (07:14)
[2021-01-18] MEDS ORDERED: ACETAMINOPHEN 1000MG 100ML IV BTL (OFIRMEV) (J0131 PER 10MG) As Ordered ONE (07:14)
[2021-01-18] MEDS ORDERED: dexameTHASONE 4 MG/ML 1ML VIAL (J1100 PER 1MG) As Ordered ONE (07:14)
[2021-01-18] MEDS ORDERED: MIDAZOLAM INJ 2MG/2ML VIAL (J2250 PER 1MG) As Ordered ONE (07:15)
[2021-01-18] MEDS ORDERED: fentaNYL 250 MCG/5 ML INJECTION (J3010) As Ordered ONE (07:15)
[2021-01-18] MEDS ORDERED: BUPIVACAINE/DEXTROSE 0.75% 2 ML AMP As Ordered ONE (07:39)
[2021-01-18] MEDS ORDERED: EPINEPHrine INJ 1 MG/ML 1ML AMP As Ordered ONE ×2 (07:39→07:54)
[2021-01-18] MEDS ORDERED: SCOPOLAMINE 1MG TRANSDERMAL PATCH As Ordered ONE (07:50)
[2021-01-18] MEDS ORDERED: PHENYLephrine 500MCG 5ML (100MCG/ML) SYRINGE As Ordered ONE ×3 (10:18→14:40)
[2021-01-18] MEDS ORDERED: fentaNYL 100 MCG/2 ML INJECTION (J3010) As Ordered ONE (11:43)
[2021-01-18] MEDS ORDERED: ceFAZolin 2 GM/D5W 50 ML IV BAG (J0690 PER 500MG) IV ONE (12:12)
[2021-01-18] MEDS ORDERED: HYDROmorphone HCL 2 MG/ML 1ML VIAL (J1170) As Ordered ONE (13:45)
[2021-01-18] MEDS ORDERED: SUGAMMADEX SODIUM 500 MG/5 ML VIAL (BRIDION) As Ordered ONE (14:40)
[2021-01-18] MEDS ORDERED: KETOROLAC 60MG 2ML VIAL As Ordered ONE (14:40)
[2021-01-18] MEDS ORDERED: ceFAZolin 1GM VIAL (J0690 PER 500MG) IV ONE (15:41)
[2021-01-18] MEDS ORDERED: DESFLURANE 240 ML INHALANT As Ordered ONE (16:09)
[2021-01-18] MEDS ORDERED: SEVOFLURANE INHAL SOLN 250 ML BTL As Ordered ONE (16:09)
[2021-01-18] MEDS ORDERED: PHENYLEPHRINE 10MG/ML 1ML VIAL (J2370 PER 1) As Ordered ONE (16:11)
[2021-01-18] MEDS ORDERED: fentaNYL 100 MCG/2 ML INJECTION (J3010) IV PRN (18:10)
[2021-01-18] MEDS ORDERED: oxyCODONE 5MG TAB PO PRN (18:10)
[2021-01-18] MEDS ORDERED: ONDANSETRON 4MG/2ML VIAL IV PRN ×2 (18:10)
[2021-01-18] MEDS ORDERED: MORPHINE 2 MG/ML 1ML VIAL (J2270) IV PRN (18:10)
[2021-01-18] MEDS ORDERED: ACETAMINOPHEN TAB 650MG DOSE (2X325MG) PO PRN (18:10)
[2021-01-18] MEDS ORDERED: LR 1,000 ML IV SCH (18:10)
--- NOTE | 2021-01-18 18:38 | ROOPDOC ---
[facility] Report Of Operation Report of Operation DATE OF PROCEDURE: 01/18/21 PREPROCEDURE DIAGNOSES: large midline incisional hernia, diastatic healing of midline laparotomy scar. POSTPROCEDURE DIAGNOSES: same.. PROCEDURE: Robotic assisted Laparoscopic Repair of large midline incisional hernia and diastatic scar (Donaldson Stoppa Repair with bilateral transversus abdominis release) 40x30 cm Midweight polypropylene mesh placed. bilateral Transversus abdominis plane block with exparel and marcaine SURGEON: Kulwant Eli MD PING PONG TABLE ASSEMBLER: Omaira Mercado NP assisted me throughout the procedure with placement of ports, management/adjustent of the robotic arms, instrument exchange, help in placement of mesh and closure of ports ANESTHESIA: General Endotracheal Anesthesia. ESTIMATED BLOOD LOSS: Approximately 100 mL. COMPLICATIONS: none, patient extubated, stable throughout the procedure. REMARKS: Patient is a 65-year-old female with prior history of an emergent midline exploration for bowel perforation, had colon resection and colostomy and subsequently had a colostomy reversal with resulting large abdominal hernia mostly located at the upper abdomen with slight deviation towards the prior ostomy, diastatic healing upper abdominal wall resulting in the large and prominent bulge on the abdomen.. PROCEDURE NOTE: multiple large midline defects and large diastatic healing through out the midline . DESCRIPTION OF PROCEDURE: Patient was given Cefazolin 2 gm IV preoperatively for wound prophylaxis and redosed every 4 hours during the surgery. She was given 400 mg of Celebrex, and tract 12 mg orally and heparin 5000 units subcutaneously for chemical DVT prophylaxis. She was brought to the operating room, placed supine on the table, compression boots placed on both lower extremities for dvt prophylaxis. She was given heparin 5,000 units subcutaneously for chemical dvt prophylaxis. She received entereg 12 mg PO prior to going to the operating room. General endoctracheal anesthesia was started. A mujica catheter placed for UO monitoring. Anesthesia performed an us guided IVET block. I marked her margins of the linea semilunaris and linea alba bilaterally using US guidance, likewise the location of the most prominent hernia defects which encompasses the whole midline of the abdomen most prominent jsut below the umbilicus extending to the top of the incision about 5 cms from the xiphisternum. Her abdomen then prepped and draped in the usual sterile fashion. We paused for a surgical timeout using both pre- incision safety checklist to verify correct patient, procedure site and additional clinical information prior to beginning the procedure Will be reviewed again with a left-sided approach. We entered the abdomen through the left upper quadrant area with a Veress needle technique. CO2 insufflation and started to pressure of 15 mmHg. The left-sided ports were then established. An 8 mm trocar was placed lateral over about the anterior axillary line just below the subcostal line. The insertion of the Veress needle was inspected. No injuries found likewise the insertion of the first robotic trocar was inspected and again no injury was noted. A general inspection of the abdominal cavity was done. There were omentum as well as loops of bowel that were adhered to the main hernia component which is at the mid abdomen. The right side wasn't easily visible due to the adhesions to the hernia. She was placed on a slight Trendelenburg position. The bed was also flexed to extend the distance between the subcostal line and anterior superior iliac spine. 2 ports were placed along the same line over the anterior axillary line about 8 cm apart. The da Greyson robot tower was then positioned in place. The arms docked to the trochars and instruments placed under direct vision. An scrub in to control of the camera and instruments at the surgeon's console. I then started with the lysis of adhesions. All omental adhesions as well as bowel adhesions to the abdominal wall and hernia sac was sharply lysed away from the abdominal wall with minimal use of energy during the dissection of the bowels. This portion of the procedure took about 1 hour. The bowels as well as omentum were then inspected for any bleeding or injury and none was found. And then proceeded with the hernia repair itself. It seems the whole of the midline abdomen was involved with the hernia as well as with a diastatic healing. Even at the level of the lower abdomen, the rectus muscles are diastatic Cadence from one another down to its insertion in the pubis. There is a large diastatic healing at the mid abdomen with multiple hernia defects along the row at the midline throughout the whole of the incision. The most prominent is roughly about a 10 cm transverse size of the defect. This extends to up to 5 cm from the xiphisternum. The posterior fascia about 1 cm from the edge of the fascia on the right side was opened up to expose the rectus muscle. The whole of the posterior rectus sheath was opened to the linea semilunaris as delineated by the neurovascular bundles and the neurovascular bundles were preserved. The smaller more medial neurovascular bundles were divided. As we approached the pelvis the peritoneum and bladder flap was taken down to approach the space of Retzius and expose the pubic tubercle. The internal ring was identified as well as the round ligament. This was divided proximal to the internal ring to avoid injury to the genitofemoral nerve. The lateral space of Bogros was then opened up mostly with blunt dissection. The arcuate line was identified and this was bluntly dissected to bring down the peritoneum lateral to this and create a retro-preperitoneal tunnel the start of my bottoms up TAR. I also started a separate incision at the top for a top down transversus abdominis release. The neurovascular bundles entering the rectus muscle laterally at the linea semilunaris was identified and 1 cm proximal to this the inferior lamella of the internal oblique was opened up to expose the transversus abdominis muscle. The transversus abdominis muscle was divided to enter the pre-transversalis plane and mostly with blunt dissection the pre- transversalis plane was opened up to bring down the transversalis and laterally the peritoneal flap. This was connected to the prior bottom TAR dissection. I continued developing my transversalis and peritoneal flap laterally until the whole flap is draping down the bowels. Superiorly I continued my dissection entering the plane the low the adipose fat pad underneath the xiphoid sternum to enter the preperitoneal plane underneath the diaphragm. I made sure that diaphragmatic muscles and its insertion is admixed with a transversalis muscles were capped up to prevent any iatrogenic hernia and the peritoneal flap underneath the diaphragm was extended superiorly to create a superior margin over the hernia. This was taken roughly about 10 cm above the uppermost hernia defect. At this point I asked me web production assistant to place 3 ports over the right side under direct vision to mirror my left-sided ports. The robotic arms were undocked and the boom was swung to attach to the right side ports. In a similar manner the posterior rectus sheath was opened up just lateral to the midline fascial defect to enter the retrorectus plane. Again this was extended to the level of the semilunar line with identification of the neurovascular bundles. Over where the prior colostomy over the left lower quadrant is located the tissues were much scarred and but I tried to preserve the hernia sac over the area to help with closure of the posterior sheath later on. There were some parietal defects with a healing off the colostomy site though clinically this was not evident as a full-blown hernia. As I approach the pelvic area again the prior dissected bladder flap was extended towards the left side approaching the Wayne's ligament and pubic tubercle. The round ligament was again divided and laterally we extended dissection to the space of [place]ros. We then went up towards the arcuate line and again created a retro-preperitoneal tunnel behind the arcuate line the heart the bottoms up TAR. The tissues were much scarred and over this area and had a few holes over this area that created this. A separate dissection was also started at the subcostal area medial to the insertion of the neurovascular bundles. In a similar manner the inferior lamella of the internal oblique was opened up to expose the transversus abdominis muscle. The transverses abdominis muscles were divided to expose the pre-transversalis plane in the pre-transversalis flap and preperitoneal flap was created. Prior right side dissection was connected towards the midline including.behind the diaphragm. The TAR was completed once the posterior sheath and peritoneum was draping on the bowels. At this point I surveyed the abdomen to make sure we get adequate hemostasis. The posterior sheath and peritoneum was closed with a running suture of 20V LOC. I started inferiorly and started a separate closure superiorly and connected both. The previously recognized holes were closed with a separate 3-0 Vicryl in a mattress fashion. I surveyed the posterior sheath for any further holes and those that I found to be either week or then was likewise reinforced. A few holes were closed with omentum as a patch on them as the peritoneal flap was week over his areas. Once the posterior sheath was closed identifying my attention to the anterior fascial defect. There was a fair amount of diastases at the bottom so I started closing the diastatic rectus muscles at the bottom bringing them together starting at the level of the funiculum of the symphysis pubis. I ran a 0 strata fixed to bring the rectus muscles to the midline. Towards the middle off the a enma between the umbilicus and symphysis pubis this is harder to do laparoscopically due to the amount of distance. Thus I decided this point to create a skin incision to the thinned out portion of the abdomen and closed the anterior fascia this way. So the robot was undocked and I scrubbed back in A skin incision was created on the thinned out scar tissue on the upper abdomen down to just above the umbilicus. This allowed me to visually inspect the posterior sheath and basher the space that we created for mesh coverage. I chose a 40 x 35 cm pilar iodine midweight polypropylene mesh. I trimmed this to a 40 x 30 cm size and laid this above the posterior sheath closure talking this on the lateral side. I secured this to the Wayne's ligament on each side with 0 Vicryl. This was also tucked underneath the costal cartilage and sternum but I did not affixed this at this area. 19 Ra drains were placed on each side threaded through the lowest most ports as we remove the other 6 ports. I then closed the anterior sheath and brought the rectus muscles together using #1 strata fix. I used a total of 6 strata fix strands with overlap of each of the strand to strengthen the closure. The anterior closure was difficult with mild tension but I was able to close the whole anterior defect. The redundant skin as well as the hernia sac was trimmed. The subcutaneous tissue was opposed with 3-0 Vicryl. [place] were used to close the skin as well as the port sites. I placed a PREVENA vac dressing on the midline incision Patient tolerated the procedure well. She was promptly awakened, extubated and brought to recovery room in a stable condition. KULWANT ELI MD January 18, 2021 18:38
[2021-01-18 19:00] VITALS: BP 127/95
[2021-01-18 19:30] VITALS: BP 141/72
[2021-01-18] MEDS: SENOKOT S TAB PO SCH (20:03)
[2021-01-18] MEDS: PERCOCET 5MG/325MG TAB PO PRN (20:04)
[2021-01-18 20:30] VITALS: BP 142/70
[2021-01-18 21:30] VITALS: BP 139/73
[2021-01-19] VITALS (7 sets, daily range): BP systolic 121–138; BP diastolic 66–90
[2021-01-19] MEDS: PERCOCET 5MG/325MG TAB PO PRN ×2 (00:33→16:54)
[2021-01-19] MEDS: LR 1,000 ML IV SCH ×3 (00:41→10:10)
[2021-01-19 06:29] LABS: BASO % 0.1 % (0.0-1.0); HEMATOCRIT 37.3 % (36.0-47.0); HEMOGLOBIN 12.1 g/dl (12.0-15.5); LYMPH # 1.5 10^3/uL (1.5-5.0); LYMPH % 17.9 % (24.0-44.0); MEAN CORPUSCULAR HEMOGLOBIN 31.8 pg (27.0-33.0); MEAN CORPUSCULAR HGB CONC 32.4 g/dl (32.0-36.5); MEAN CORPUSCULAR VOLUME 97.9 fl (80.0-96.0); MONO # 0.8 10^3/uL (0.0-0.8); MONO % 9.9 % (2.0-8.0); NEUTROPHILS % 71.9 % (36.0-66.0); PLATELET COUNT, AUTOMATED 171 10^3/uL (150-450); RED BLOOD COUNT 3.81 10^6/uL (4.00-5.40); WHITE BLOOD COUNT 8.4 10^3/uL (4.0-10.0)
[2021-01-19 06:46] LABS: BLOOD UREA NITROGEN 12 MG/DL (7-18); CALCIUM LEVEL 7.9 MG/DL (8.8-10.2); CARBON DIOXIDE LEVEL 27 MEQ/L (21-32); CHLORIDE LEVEL 106 MEQ/L (98-107); CREATININE FOR GFR 0.78 MG/DL (0.55-1.30); GLOMERULAR FILTRATION RATE > 60.0 (>45); GLUCOSE, FASTING 120 MG/DL (70-100); SODIUM LEVEL 140 MEQ/L (136-145)
[2021-01-19] MEDS: PANTOPRAZOLE 40MG VIAL (C9113 PER 1) IV SCH (08:41)
[2021-01-19] MEDS: ENOXAPARIN 40MG/0.4ML SYRINGE (J1650 PER 10MG) SC SCH (08:41)
[2021-01-19] MEDS: SENOKOT S TAB PO SCH ×2 (08:41→20:45)
[2021-01-19] MEDS: KETOROLAC 30 MG/ML 1ML VIAL IV PRN (09:25)
--- NOTE | 2021-01-19 14:33 | IPNPDOC ---
Text Note Date of Service The patient was seen on 01/19/21. NOTE Patient seen laying flat in bed. She looks comfortable. She reports that she is getting about 1 tablets of Percocets about every 4-6 hours or so. She needed help getting up from a supine position but is able to ambulate without any difficulty. Denies any nausea or vomiting. Vital signs stable Comfortable in appearance Lung sounds clear Regular heart rate and rhythm Obese, soft, nondistended. Midline incision is covered with Provine there is some staining around the periphery and a foam. Bilateral retro-muscular drains are putting light pink serosanguineous fluid. For the past 24 hours despite up 200 mL's. mild tender around port sites and midline incision line Large incisional hernia involving her upper midline with distatic healing of the lowe reti muscles POD1 Ulysses Stoppa repair with bilateral transversus abdominis release She looks to be doing well. We will continue to monitor the drain and see what comes out today. If this is still above 100 she has a chance that she will go home with the drain he'll just teach her how to take care of the drain and r ecord outputs. Ideally would like the output to be less than 20-30 mL also day. She is taking just about what I expect with regards to narcotics. He will continue with multimodal therapy. I encouraged her to do incentive spirometer nurse as well as ambulate the hallways. We will give her a abdominal binder to go home with. VS,Fishbone, I+O VS, Fishbone, I+O Laboratory Tests 01/19/21 06:12 Vital Signs Date Time Temp Pulse Resp B/P (MAP) Pulse Ox O2 Delivery O2 Flow Rate FiO2 01/19/21 14:00 98.5 111 19 121/66 (84) 91 Room Air 01/19/21 07:59 2.0 I&O- Last 24 Hours up to 6 AM 01/19/21 06:00 Intake Total 6992 ml Output Total 970 ml Balance 6022 ml MAGDALENA KEITH MD January 19, 2021 14:33
[2021-01-20] MEDS: KETOROLAC 30 MG/ML 1ML VIAL IV PRN ×3 (01:50→19:41)
[2021-01-20 02:00] VITALS: BP 157/89
[2021-01-20 06:00] VITALS: BP 143/77
[2021-01-20 06:33] LABS: BASO % 0.1 % (0.0-1.0); EOS % 0.6 % (0.0-3.0); HEMATOCRIT 35.8 % (36.0-47.0); HEMOGLOBIN 11.3 g/dl (12.0-15.5); LYMPH # 1.6 10^3/uL (1.5-5.0); LYMPH % 22.9 % (24.0-44.0); MEAN CORPUSCULAR HEMOGLOBIN 31.5 pg (27.0-33.0); MEAN CORPUSCULAR HGB CONC 31.6 g/dl (32.0-36.5); MEAN CORPUSCULAR VOLUME 99.7 fl (80.0-96.0); MONO # 0.7 10^3/uL (0.0-0.8); MONO % 9.9 % (2.0-8.0); NEUTROPHILS # 4.6 10^3/uL (1.5-8.5); NEUTROPHILS % 66.1 % (36.0-66.0); PLATELET COUNT, AUTOMATED 121 10^3/uL (150-450); RED BLOOD COUNT 3.59 10^6/uL (4.00-5.40); WHITE BLOOD COUNT 6.9 10^3/uL (4.0-10.0)
[2021-01-20 06:58] LABS: BLOOD UREA NITROGEN 10 MG/DL (7-18); CALCIUM LEVEL 8.1 MG/DL (8.8-10.2); CARBON DIOXIDE LEVEL 30 MEQ/L (21-32); CHLORIDE LEVEL 111 MEQ/L (98-107); CREATININE FOR GFR 0.72 MG/DL (0.55-1.30); GLOMERULAR FILTRATION RATE > 60.0 (>45); GLUCOSE, FASTING 114 MG/DL (70-100); POTASSIUM SERUM 3.6 MEQ/L (3.5-5.1); SODIUM LEVEL 146 MEQ/L (136-145)
[2021-01-20] MEDS: SENOKOT S TAB PO SCH ×2 (08:38→20:22)
[2021-01-20] MEDS: PANTOPRAZOLE 40MG VIAL (C9113 PER 1) IV SCH (08:38)
[2021-01-20] MEDS: ENOXAPARIN 40MG/0.4ML SYRINGE (J1650 PER 10MG) SC SCH (08:39)
[2021-01-20 10:00] VITALS: BP 147/79
[2021-01-20 14:00] VITALS: BP 146/83
--- NOTE | 2021-01-20 15:23 | IPNPDOC ---
Text Note Date of Service The patient was seen on 01/20/21. NOTE Shes POD2 after repair of her incisional hernia/abdominal wall reconstruction. She looks comfortable was able to get up from bed by herself, sit up on bed comfortably. Her drains are still putting up a lot but looks light pink serosanguenous and not bloody. VS stable I examined her standing up. She has either some laxity of the subcutaneous tissue or subcutaneous seroma c ollection over the right side as it looks more prominent than the left side but otherwise midline looks good. Prevena in place. Her drains are putting out light pink serosanguenous fluid almost equal in amount No significant extremity edema Plan: d/c mujica cath continue monitoring of the drain abdominal binder for extra compression and support ambulate as tolerated most likely discharge home tomorrow with drains, prevena VS,Fishbone, I+O VS, Fishbone, I+O Laboratory Tests 01/20/21 06:03 Vital Signs Date Time Temp Pulse Resp B/P (MAP) Pulse Ox O2 Delivery O2 Flow Rate FiO2 01/20/21 14:00 98.3 101 18 146/83 (104) 90 Room Air 01/20/21 08:40 2.0 I&O- Last 24 Hours up to 6 AM 01/20/21 06:00 Intake Total 915 ml Output Total 1890 ml Balance -975 ml MAGDALENA KEITH MD January 20, 2021 15:23
[2021-01-20 18:00] VITALS: BP 130/66
[2021-01-20 22:00] VITALS: BP 163/99
[2021-01-21 02:23] VITALS: BP 147/80
[2021-01-21] MEDS: KETOROLAC 30 MG/ML 1ML VIAL IV PRN (04:27)
[2021-01-21 05:36] LABS: BASO % 0.3 % (0.0-1.0); EOS # 0.2 10^3/uL (0.0-0.5); EOS % 3.1 % (0.0-3.0); HEMATOCRIT 33.9 % (36.0-47.0); HEMOGLOBIN 10.8 g/dl (12.0-15.5); LYMPH # 1.8 10^3/uL (1.5-5.0); LYMPH % 25.5 % (24.0-44.0); MEAN CORPUSCULAR HEMOGLOBIN 31.2 pg (27.0-33.0); MEAN CORPUSCULAR HGB CONC 31.9 g/dl (32.0-36.5); MONO # 0.6 10^3/uL (0.0-0.8); NEUTROPHILS # 4.2 10^3/uL (1.5-8.5); NEUTROPHILS % 61.7 % (36.0-66.0); PLATELET COUNT, AUTOMATED 124 10^3/uL (150-450); RED BLOOD COUNT 3.46 10^6/uL (4.00-5.40); WHITE BLOOD COUNT 6.9 10^3/uL (4.0-10.0)
[2021-01-21 05:59] LABS: BLOOD UREA NITROGEN 6 MG/DL (7-18); CALCIUM LEVEL 7.7 MG/DL (8.8-10.2); CARBON DIOXIDE LEVEL 30 MEQ/L (21-32); CHLORIDE LEVEL 107 MEQ/L (98-107); CREATININE FOR GFR 0.57 MG/DL (0.55-1.30); GLOMERULAR FILTRATION RATE > 60.0 (>45); GLUCOSE, FASTING 105 MG/DL (70-100); POTASSIUM SERUM 3.4 MEQ/L (3.5-5.1); SODIUM LEVEL 142 MEQ/L (136-145)
[2021-01-21 06:00] VITALS: BP 155/90
[2021-01-21] MEDS: SENOKOT S TAB PO SCH (07:32)
[2021-01-21] MEDS: ENOXAPARIN 40MG/0.4ML SYRINGE (J1650 PER 10MG) SC SCH (07:48)
[2021-01-21] MEDS: PANTOPRAZOLE 40MG VIAL (C9113 PER 1) IV SCH (08:19)
[2021-01-21 08:45] VITALS: O2SAT 94
[2021-01-21] MEDS ORDERED: IBUP-1022 PO (10:15)
[2021-01-21] MEDS ORDERED: SENN-52 PO (10:15)
[2021-01-21] MEDS ORDERED: HYDR-3713 PO (10:15)
[2021-01-21] MEDS: PERCOCET 5MG/325MG TAB PO PRN (11:35)
--- NOTE | 2021-01-22 11:10 | DS.PDOC ---
Discharge Summary General Date of Admission January 18, 2021 at 06:06 Date of Discharge 01/21/21 Attending Physician: MAGDALENA ELI MD Discharge Summary Gen. surgery. Dr. Eli PROCEDURES PERFORMED DURING STAY: ADMITTING DIAGNOSES: Incisional hernia Previous history of Exploratory Laparotomy hemicolectomy and transverse colon colostomy 02/27/19 Ra Colostomy Reversal - 07/19/19 DISCHARGE DIAGNOSES: Incisional hernia status post robotic-assisted laparoscopic repair of large midline incisional hernia and diaphragmatic scar as per Dr. Eli 01/18/21. Previous history of Exploratory Laparotomy hemicolectomy and transverse colon colostomy 02/27/19 Ra Colostomy Reversal - 07/19/19 COMPLICATIONS/CHIEF COMPLAINT: Large Incisional Hernia. HISTORY OF PRESENT ILLNESS: The patient is a 65-year-old female with history of large incisional hernia with prior history of exploratory laparotomy, colon resection and transverse colostomy with subsequent reversal of the colostomy. She developed a large bulge from the midline incision which has been progressively increasing in size. Plan was to proceed with repair of large midline incisional hernia as per Dr. Eli. HOSPITAL COURSE: The patient is status post robotic-assisted laparoscopic repair of large midline incisional hernia and diaphragmatic scar as per Dr. Eli 01/18/21. By postoperative day #1 the patient was recovering well. Pain was controlled. Out of bed and ambulation encouraged. The patient was advised to wear abdominal binder when up out of bed. The patient remained afebrile. She was advanced to regular diet. By postoperative day #2 she was able to get up out of bed by herself, there was some prominence noted on the right side but overall all of her incisions looked good, wound VAC was in place, SONIA drains were noted to have light pink serosanguineous fluid. 01/21/21 the patient was felt stable for discharge home with plan to leave the wound VAC and drains in place with close outpatient follow-up. The patient verbalized understanding and agreement. DISCHARGE MEDICATIONS: Please see below. ALLERGIES: Please see below. PHYSICAL EXAMINATION ON DISCHARGE: VITAL SIGNS: Please see below. GENERAL: No acute distress, resting in bed HEENT: Mucous membranes CARDIOVASCULAR EXAMINATION: S1-S2 regular rate rhythm RESPIRATORY EXAMINATION: Clear to auscultation ABDOMINAL EXAMINATION: Soft, mild tenderness around incision sites, prominence noted on the right side which is examined by Dr. Eli, possibly some laxity of subcutaneous tissue versus subcutaneous seroma collection however the midline has no bulges or prominent areas. Prevena in place. SONIA drain 2 with serosanguineous fluid. EXTREMITIES: No edema LABORATORY DATA: Please see below. DISCHARGE PLAN: Discharge home DISPOSITION: Home, Self-Care. DISCHARGE INSTRUCTIONS: ACTIVITY: Light activity As tolerated. No lifting greater than 20 pounds for 2 weeks. The patient should wear abdominal binder when up out of bed. DIET: Regular The patient is advised to leave Prevena in place until she returns to the office. SONIA drain [address] she returns to the office. The patient is advised to record drainage from SONIA drains. Dry dressing around SONIA drains. No baths or showers until returns to the office. Call back to the office with any changes or concerns. The patient was advised to use ibuprofen 600 mg every 6 hours as needed for pain. For breakthrough pain Vicodin 5/325 one tablet every 6 hours as needed. ITEMS TO FOLLOWUP ON ON OUTPATIENT: Prevena wound VAC and SONIA drain 2. DISCHARGE CONDITION: Stable. TIME SPENT ON DISCHARGE: Greater than 30 minutes. Vital Signs/I&Os Vital Signs Date Time Temp Pulse Resp B/P (MAP) Pulse Ox O2 Delivery O2 Flow Rate FiO2 01/21/21 12:05 18 01/21/21 11:35 Room Air 01/21/21 08:45 94 01/21/21 06:00 98.5 83 155/90 (111) 01/20/21 08:40 2.0 I&O- Last 24 Hours up to 6 AM 01/22/21 06:00 Intake Total 600 ml Balance 600 ml Laboratory Data Labs 24H Item Value Date Time White Blood Count 6.9 10^3/uL 01/21/21 0510 Red Blood Count 3.46 10^6/uL L 01/21/21 0510 Hemoglobin 10.8 g/dl L 01/21/21 0510 Hematocrit 33.9 % L 01/21/21 05 Mean Corpuscular Volume 98.0 fl H 01/21/21 05 Mean Corpuscular Hemoglobin 31.2 pg 01/21/21 05 Mean Corpuscular Hemoglobin Concent 31.9 g/dl L 01/21/21 05 Red Cell Distribution Width 12.5 % 01/21/21 0510 Sodium Level 142 MEQ/L 01/21/21 0510 Potassium Level 3.4 MEQ/L L 01/21/21 0510 Chloride Level 107 MEQ/L 01/21/21 0510 Carbon Dioxide Level 30 MEQ/L 01/21/21 0510 Anion Gap 5 MEQ/L L 01/21/21 0510 Blood Urea Nitrogen 6 MG/DL L 01/21/21 0510 Creatinine 0.57 MG/DL 01/21/21 0510 Glomerular Filtration Rate > 60.0 01/21/21 05 Fasting Glucose 105 MG/DL H 01/21/21 0510 Calcium Level 7.7 MG/DL L 01/21/21 0510 Discharge Medications Scheduled Fluticasone Propionate (Fluticasone Propionate) 16 Gm [place].susp, 1 SPR NA DAILY, (Reported) Sennosides/Docusate Sodium (Senna Plus Tablet) 1 Each Tablet, 1 TAB PO BID Scheduled PRN Hydrocodone/Acetaminophen (Hydrocodone-Acetamin 5-325 mg) 1 Each Tablet, 1 TAB PO Q6H PRN for PAIN MDD 4 Ibuprofen (Ibuprofen) 600 Mg Tablet, 600 MG PO Q6H PRN for PAIN Allergies Coded Allergies: ENVIROMENTAL (Verified Allergy, Intermediate, 01/18/21) Christiana Benítez January 22, 2021 11:10 MAGDALENA ELI MD January 27, 2021 02:24
== END 2021-01-21 12:40 | disposition home or self-care (01) | DRG 355 ==
LOC: M OR 01-18 06:06 → M MS5PR 01-18 18:45
PROVIDERS: ADMIT Surgery; ATTEND Surgery
PROC: 0WUF4JZ Supplement Abdominal Wall with Synthetic Substitute, Percutaneous Endoscopic Approach (ICD-10-PCS; 2021-01-18)
PROC: 8E0W4CZ Robotic Assisted Procedure of Trunk Region, Percutaneous Endoscopic Approach (ICD-10-PCS; 2021-01-18)
PROC: 0WQF4ZZ Repair Abdominal Wall, Percutaneous Endoscopic Approach (ICD-10-PCS; principal; 2021-01-18 07:30)
DX: K43.2 Incisional hernia without obstruction or gangrene (principal)

== ENCOUNTER 2020-10-12 13:42 | Emergency (ER) | payer MEDICARE, MEDICAID ==
[~2020-10-12] VITALS: Ht 157.5 cm; Wt 75.0 kg
[~2020-10-12 13:42] MED LIST changes: +ALLE180T33 PO; +CVS50CAP PO; +IBUP200C25 PO
[2020-10-12] MEDS ORDERED: PERCOCET 5MG/325MG TAB PO ONE (17:15)
[2020-10-12] MEDS ORDERED: IBUPROFEN 400MG TAB PO ONE (17:15)
--- NOTE | 2020-10-12 17:27 | REP ---
INDICATION: fall. COMPARISON: Comparison radiograph March 02, 2019.. TECHNIQUE: AP pelvis: Single view. FINDINGS: The bony pelvic ring is intact. No pelvic or sacral fracture is seen. There is a surgical gastrointestinal anastomosis in the mid pelvis. No hip fracture is seen. SI joints and symphysis pubis are unremarkable. IMPRESSION: No fracture seen. Postoperative changes. <Electronically signed by Jr Padron > 10/12/20 [id number]
--- NOTE | 2020-10-12 17:31 | REPVR ---
PROCEDURE INFORMATION: Exam: CT Lumbar Spine Without Contrast Exam date and time: 10/12/2020 5:03 PM Age: 65 years old Clinical indication: Injury or trauma; Fall; Blunt trauma (contusions or hematomas) TECHNIQUE: Imaging protocol: Computed tomography images of the lumbar spine without contrast. Radiation optimization: All CT scans at this facility use at least one of these dose optimization techniques: automated exposure control; mA and/or kV adjustment per patient size (includes targeted exams where dose is matched to clinical indication); or iterative reconstruction. COMPARISON: No relevant prior studies available. FINDINGS: Vertebrae: Acute fracture of the superior endplate of L1 vertebra with approximately 50% vertebral height loss. Mild retropulsion of the fracture fragments. L1-L2: Acute fracture of the superior endplate of L1 vertebra with mild retropulsion. Mild spinal canal stenosis at T12-L1. No neural foraminal narrowing. L2-L3: No significant disc protrusion. No spinal canal stenosis. No neural foraminal narrowing. L3-L4: No significant disc protrusion. No severe spinal canal stenosis. No significant neural foraminal narrowing. L4-L5: Disc bulge. Bilateral facet hypertrophy. Mild spinal canal stenosis. No neural foraminal narrowing. L5-S1: No significant disc protrusion. No severe spinal canal stenosis. No significant neural foraminal narrowing. Other bones/joints: Diffuse demineralization of the bones. Soft tissues: Unremarkable. IMPRESSION: Acute fracture of the superior endplate of L1 vertebra with approximately 50% vertebral height loss and mild retropulsion of the fracture fragments with mild spinal canal stenosis at T12-L1. Electronically signed by: Ricky Fields On 10/12/2020 17:31:53 PM
[2020-10-12] MEDS ORDERED: PERC5TAB12 PO (17:54)
[2020-10-12 18:15] VITALS: BP 117/84
--- NOTE | 2020-10-13 11:55 | ED PDOC ---
Post-Departure Follow-Up ct ls spine faxed formal report to dr benitez for fu Drew Horton MD Oct 13, 2020 11:55
== END 2020-10-12 18:55 | disposition home or self-care (01) ==
LOC: M ED 13:42
DX: S32.019A Unspecified fracture of first lumbar vertebra, initial encounter for closed fracture (principal); S70.00XA Contusion of unspecified hip, initial encounter; W06.XXXA Fall from bed, initial encounter; Y92.013 Bedroom of single-family (private) house as the place of occurrence of the external cause; I10 Essential (primary) hypertension; J30.89 Other allergic rhinitis

== ENCOUNTER → 2021-01-13 | Outpatient (CLI) | payer MEDICARE, MEDICAID ==
[~2021-01-13] MED LIST changes: +PERC5TAB12 PO
[2021-01-13 12:47] LABS: HEMATOCRIT 48.1 % (36.0-47.0); HEMOGLOBIN 15.5 g/dl (12.0-15.5); MEAN CORPUSCULAR HEMOGLOBIN 31.7 pg (27.0-33.0); MEAN CORPUSCULAR HGB CONC 32.2 g/dl (32.0-36.5); MEAN CORPUSCULAR VOLUME 98.4 fl (80.0-96.0); PLATELET COUNT, AUTOMATED 200 10^3/uL (150-450); RED BLOOD COUNT 4.89 10^6/uL (4.00-5.40); WHITE BLOOD COUNT 6.5 10^3/uL (4.0-10.0)
[2021-01-13 13:09] LABS: ALBUMIN 3.6 GM/DL (3.2-5.2); ALT/SGPT 53 U/L (12-78); BILIRUBIN,TOTAL 0.3 MG/DL (0.2-1.0); BLOOD UREA NITROGEN 13 MG/DL (7-18); CALCIUM LEVEL 9.5 MG/DL (8.8-10.2); CARBON DIOXIDE LEVEL 28 MEQ/L (21-32); CHLORIDE LEVEL 109 MEQ/L (98-107); CREATININE FOR GFR 0.77 MG/DL (0.55-1.30); GLOMERULAR FILTRATION RATE > 60.0 (>45); GLUCOSE, FASTING 91 MG/DL (70-100); POTASSIUM SERUM 5.2 MEQ/L (3.5-5.1); SODIUM LEVEL 140 MEQ/L (136-145); TOTAL PROTEIN 7.5 GM/DL (6.4-8.2)
--- NOTE | 2021-01-13 16:44 | ECGEPIP ---
[facility] Test Date: 2021-01-13 Pat Name: KELSEY SKAGGS Department: Room: - Gender: Female Solutions Market Consultant: gavin : 1955 Requested By: Denise An Order Number: [id number] Reading MD: Zaire Soto Measurements Intervals [place] Rate: 91 P: 73 ME: 162 QRS: 45 QRSD: 84 T: 66 QT: 366 QTc: 450 Interpretive Statements Normal sinus rhythm Poor R wave progression. Early repolarization. No significant change compared with 07/19/2019. Electronically Signed on 01-13-2021 16:43:51 EDT by Zaire Soto
== END ==
LOC: M LAB 11:29
PROVIDERS: ATTEND Physician Assistant
DX: Z01.818 Encounter for other preprocedural examination (principal); Z11.52 Encounter for screening for COVID-19
CPT/HCPCS: 36415; 80053; 85027; 93005; U0003

== ENCOUNTER → 2021-01-13 | Outpatient (CLI) | payer MEDICARE, MEDICAID | LOC: M LABSMTC 09:52 | PROVIDERS: ATTEND Anesthesiology | DX: Z01.818 Encounter for other preprocedural examination (principal); Z11.52 Encounter for screening for COVID-19 ==

== ENCOUNTER → 2022-07-26 | Outpatient (CLI) | payer MEDICARE, MEDICAID ==
[~2022-07-26] MED LIST changes: +FLUTISP; +HYDR-3713 PO; +IBUP-1022 PO; -IBUP200T45 PO; +IBUP200T46 PO; +SENN-52 PO
== END ==
LOC: M RAD 12:19
PROVIDERS: ATTEND Physician Assistant Surgical
DX: M79.604 Pain in right leg (principal)

== ENCOUNTER → 2022-08-02 | Outpatient (CLI) | payer MEDICARE, MEDICAID ==
[2022-08-02 14:17] LABS: BLOOD UREA NITROGEN 11 MG/DL (9-23)
[2022-08-02 14:19] LABS: CREATININE FOR GFR 0.61 MG/DL (0.55-1.30); GLOMERULAR FILTRATION RATE > 60.0 (>45)
== END ==
LOC: M LAB 12:17
PROVIDERS: ATTEND Physician Assistant Surgical
DX: M17.11 Unilateral primary osteoarthritis, right knee (principal)

== ENCOUNTER → 2022-08-12 | Outpatient (CLI) | payer MEDICARE, MEDICAID | LOC: M PLARAD 12:07 | PROVIDERS: ATTEND Physician Assistant Surgical | DX: M17.11 Unilateral primary osteoarthritis, right knee (principal); M94.29 Chondromalacia, multiple sites; M23.221 Derangement of posterior horn of medial meniscus due to old tear or injury, right knee; S83.231A Complex tear of medial meniscus, current injury, right knee, initial encounter; M71.21 Synovial cyst of popliteal space [Baker], right knee ==